=== PATIENT | male | born 1935 | race Two or more races ===

== ENCOUNTER 2022-01-11 18:50 | Inpatient (IN) | payer MEDICARE, MEDICAID ==
[~2022-01-11] VITALS: Ht 162.6 cm; Wt 69.7 kg
[2022-01-11] MEDS: DEXTROSE 10% 1,000 ML IV SCH (19:30)
[2022-01-11] MEDS ORDERED: LABETALOL HCL 5 MG/ML 4ML SYRINGE IV ONE (20:15)
[2022-01-11 20:41] LABS: Basophils # (auto) 0 10 ^3/uL (0-0.2); Basophils % (auto) 0.2 % (0.0-2.0); Eosinophils # (auto) 0 10 ^3/uL (0-0.8); Eosinophils % (auto) 0.5 % (0.0-7.0); Hematocrit 36.5 % (41.0-53.0); Hemoglobin 12.6 g/dL (13.5-17.5); Lymphocytes # (auto) 0.5 10 ^3/uL (0.4-5.4); Lymphocytes % (auto) 5.1 % (10.0-50.0); Mean Corpuscular Hemoglobin 32.6 pg (28.0-32.0); Mean Corpuscular Hgb Conc. 34.6 g/dL (32.0-36.0); Mean Corpuscular Volume 94.3 fL (80.0-100.0); Monocytes # (auto) 0.6 10 ^3/uL (0-1.3); Monocytes % (auto) 6.6 % (0.0-12.0); Neutrophils % (auto) 87.6 % (37.0-80.0); Nucleated Red Blood Cells % 0.6 %; Red Blood Cells 3.88 10^6/uL (4.5-5.90); Red Cell Distribution Width 13.5 % (11.8-14.3); White Blood Cell 9.1 10^3/uL (4.4-10.8)
[2022-01-11 21:00] LABS: Alanine Aminotransferase 19 U/L (16-61); Albumin 3.4 g/dL (3.4-5.0); Anion Gap 12 (5-15); Aspartate Aminotransferase 24 U/L (15-37); BUN/Creatinine Ratio 11.5; Blood Urea Nitrogen 18 mg/dL (7-18); Calcium 8.9 mg/dL (8.5-10.1); Carbon Dioxide 20 mmol/L (21-32); Chloride 96 mmol/L (98-107); GFR African American 54 mL/min; GFR Non-African American 45 mL/min; Glucose 82 mg/dL (74-106); Potassium 4.5 mmol/L (3.5-5.1); Sodium 128 mmol/L (136-145)
[2022-01-11 21:03] LABS: Alkaline Phosphatase 102 U/L (45-117); Bilirubin, Total 0.3 mg/dL (0.2-1.0); Total Protein 8.5 g/dL (6.4-8.2)
[2022-01-11 21:57] LABS: Urine WBC None Seen /hpf (0 - 3)
[2022-01-11 22:07] LABS: Urine Bacteria FEW /hpf (None Seen); Urine Blood TRACE /uL (Negative); Urine Specific Gravity 1.005 (1.001-1.035)
[2022-01-12] MEDS ORDERED: NIFEdipine ER 30 MG TAB PO ONE (02:45)
[2022-01-12] MEDS ORDERED: DEXTROSE (50%) 50ML SYRG IV PRN (03:00)
[2022-01-12] MEDS ORDERED: ASPirin-EC 81 mg tab PO ONE (03:00)
[2022-01-12] MEDS ORDERED: ONDANSETRON HCL 4 MG/2 ML VIAL IV PRN (03:00)
[2022-01-12] MEDS ORDERED: SODIUM CHLORIDE 0.9% 1,000 ML IV SCH (03:00)
[2022-01-12] MEDS: LABETALOL HCL 5 MG/ML 4ML SYRINGE IV SCH ×4 (05:10→18:00)
[2022-01-12] MEDS: InsuLIN REG 1unit/0.01ml Soln (100units/ml) SC SCH ×5 (05:11→21:38)
[2022-01-12] MEDS: SODIUM CHLOR 0.9% PF (SALINE LOCK) 10ML VIAL/SYR IV SCH ×4 (05:11→21:37)
[2022-01-12] MEDS: DEXTROSE 10% 1,000 ML IV SCH ×3 (05:30→22:55)
[2022-01-12] MEDS: ACCU-CHEK COMFORT CURVE STRIP VI SCH ×4 (06:33→21:04)
[2022-01-12 12:50] LABS: Potassium 4.3 mmol/L (3.5-5.1)
[2022-01-12 13:00] VITALS: BP 146/69
[2022-01-12 13:02] LABS: BUN/Creatinine Ratio 14.6; Calcium 8.5 mg/dL (8.5-10.1)
[2022-01-12] MEDS ORDERED: NITROGLYCERIN 0.4 MG SL TAB SL PRN (13:15)
[2022-01-12] MEDS ORDERED: MORPHINE SULFATE INJECTION 2 MG/ML SYRG IV PRN (13:15)
[2022-01-12] MEDS ORDERED: LORazepam 2MG/ML-1ML VIAL IV ONE (13:15)
[2022-01-12] MEDS ORDERED: amLODIPine BESYLATE 5 MG TAB PO ONE (13:45)
[2022-01-12] MEDS ORDERED: ASPI-498 PO (16:31)
[2022-01-12] MEDS ORDERED: CARV6.2551 PO (16:33)
[2022-01-12 17:00] VITALS: BP 121/61
[2022-01-12] MEDS ORDERED: GLIP10TA9 PO (18:26)
[2022-01-12] MEDS ORDERED: TAMS0.4C36 PO (18:26)
[2022-01-12] MEDS ORDERED: LEVO88TA4 PO (18:26)
[2022-01-12] MEDS ORDERED: METF-370 PO (18:26)
[2022-01-12 22:00] VITALS: BP 101/55
[2022-01-13] MEDS: LABETALOL HCL 5 MG/ML 4ML SYRINGE IV SCH ×4 (01:42→13:48)
[2022-01-13 05:00] VITALS: BP 121/56
[2022-01-13] MEDS: SODIUM CHLOR 0.9% PF (SALINE LOCK) 10ML VIAL/SYR IV SCH ×3 (05:26→22:50)
[2022-01-13] MEDS: ACCU-CHEK COMFORT CURVE STRIP VI SCH ×4 (06:15→22:53)
[2022-01-13] MEDS: InsuLIN REG 1unit/0.01ml Soln (100units/ml) SC SCH ×4 (06:20→22:54)
[2022-01-13 09:35] VITALS: BP 138/69
[2022-01-13] MEDS: amLODIPine BESYLATE 5 MG TAB PO SCH (10:00)
[2022-01-13 13:00] VITALS: BP 135/64
[2022-01-13] MEDS ORDERED: ASPirin 81 mg TAB PO ONE (13:15)
[2022-01-13] MEDS ORDERED: ACETAMINOPHEN 325 MG TAB PO PRN (16:00)
[2022-01-13] MEDS ORDERED: ENOXAPARIN SOD 40 MG/0.4 ML SYRINGE SC ONE (16:00)
[2022-01-13 16:27] LABS: Calcium 8.5 mg/dL (8.5-10.1); Potassium 4.3 mmol/L (3.5-5.1)
[2022-01-13 16:29] LABS: BUN/Creatinine Ratio 14.3
[2022-01-13] MEDS: TAMSULOSIN HYDROCHLORIDE 0.4 MG CAP PO SCH (17:02)
[2022-01-13 18:10] VITALS: BP_SYST 132; BP_SYST 143; BP_DIAS 107; BP_DIAS 80
[2022-01-13 20:43] LABS: Cholesterol 170 mg/dL (< 200); Triglycerides 100 mg/dL (< 150)
[2022-01-13 20:46] LABS: HDL Cholesterol 84 mg/dL (40-59); LDL Cholesterol 68 mg/dL (< 100)
[2022-01-13] MEDS: ATORVASTATIN 20 MG TAB PO SCH (22:52)
[2022-01-13] MEDS: CARVEDILOL 3.125 MG TAB PO SCH (22:52)
[2022-01-14] MEDS: hydrALAZINE HCL 25 MG TAB PO PRN ×2 (00:03→05:45)
[2022-01-14] MEDS: SODIUM CHLOR 0.9% PF (SALINE LOCK) 10ML VIAL/SYR IV SCH ×3 (05:23→21:55)
[2022-01-14] MEDS: ACCU-CHEK COMFORT CURVE STRIP VI SCH ×4 (06:04→21:55)
[2022-01-14] MEDS: InsuLIN REG 1unit/0.01ml Soln (100units/ml) SC SCH ×4 (06:05→22:09)
[2022-01-14] MEDS: LEVOTHYROXINE SODIUM 25 MCG TAB PO SCH (06:05)
[2022-01-14 07:39] LABS: Cholesterol 199 mg/dL (< 200); Triglycerides 150 mg/dL (< 150)
[2022-01-14 07:41] LABS: HDL Cholesterol 99 mg/dL (40-59); LDL Cholesterol 79 mg/dL (< 100)
[2022-01-14 09:00] VITALS: BP 141/75
[2022-01-14] MEDS: ASPirin 81 mg TAB PO SCH (09:36)
[2022-01-14] MEDS: CARVEDILOL 3.125 MG TAB PO SCH ×2 (09:37→22:00)
[2022-01-14] MEDS: amLODIPine BESYLATE 5 MG TAB PO SCH (09:38)
[2022-01-14] MEDS: ENOXAPARIN SOD 40 MG/0.4 ML SYRINGE SC SCH (09:39)
[2022-01-14] MEDS: SODIUM CHLORIDE 0.9% 1,000 ML IV SCH ×2 (11:38→23:35)
[2022-01-14 12:49] VITALS: BP 138/61
[2022-01-14] MEDS ORDERED: NICOTINE 21MG/24 HR TOPICAL PATCH TD ONE (14:30)
[2022-01-14] MEDS ORDERED: chlordiazePOXIDE HCL 5 MG CAP PO PRN (14:30)
[2022-01-14] MEDS ORDERED: GLYCOPYRROLATE 0.2 MG/ML 1ML VIAL ONE (16:05)
[2022-01-14] MEDS ORDERED: LIDOCAINE 2%HCL (LOCAL ANESTH.) INJ 10ml MDV ONE (16:05)
[2022-01-14] MEDS ORDERED: PHENYLEPHRINE HCL 10 MG/ML VL ONE (16:05)
[2022-01-14] MEDS ORDERED: EPINEPHrine HCL 1 MG/10 ML SYRG ONE (16:32)
[2022-01-14] MEDS ORDERED: DOPamine 1600MCG/ML D5W 0 ML IV ONE (16:32)
[2022-01-14] MEDS ORDERED: ATROPINE SULF 1 MG/10ml SYR ONE (16:32)
[2022-01-14] MEDS ORDERED: ANGIOMAX 250 MG VIAL IV ONE (16:39)
[2022-01-14] MEDS ORDERED: SODIUM CHL 0.9% 50 ML ONE (16:39)
[2022-01-14 16:41] LABS: INR 1.02 (0.9-1.15)
[2022-01-14] MEDS ORDERED: MIDODRINE HCL 10 MG TAB PO PRN ×2 (17:15→17:30)
[2022-01-14] MEDS: CLOPIDOGREL 300 MG TAB PO ONE ×2 (17:18→18:25)
[2022-01-14] MEDS: TAMSULOSIN HYDROCHLORIDE 0.4 MG CAP PO SCH (17:56)
[2022-01-14] MEDS ORDERED: SODIUM CHLORIDE 0.9% 500 ML IV ONE (18:00)
[2022-01-14] MEDS ORDERED: DOPamine 1600MCG/ML D5W 250 ML IV SCH (18:00)
[2022-01-14] MEDS ORDERED: CLOPIDOGREL 300 MG TAB ONE (18:19)
[2022-01-14] MEDS ORDERED: DOPamine 1600MCG/ML D5W 250 ML IV ONE (18:26)
[2022-01-14] MEDS: ATORVASTATIN 20 MG TAB PO SCH (22:00)
[2022-01-15] MEDS: SODIUM CHLOR 0.9% PF (SALINE LOCK) 10ML VIAL/SYR IV SCH ×3 (06:03→22:00)
[2022-01-15] MEDS: ACCU-CHEK COMFORT CURVE STRIP VI SCH ×4 (06:03→22:00)
[2022-01-15] MEDS: LEVOTHYROXINE SODIUM 25 MCG TAB PO SCH (06:03)
[2022-01-15 06:08] VITALS: BP 145/67
[2022-01-15] MEDS: InsuLIN REG 1unit/0.01ml Soln (100units/ml) SC SCH ×4 (06:17→22:00)
[2022-01-15 06:26] LABS: BUN/Creatinine Ratio 15.3; Calcium 8.6 mg/dL (8.5-10.1); Potassium 4.4 mmol/L (3.5-5.1)
[2022-01-15 09:00] VITALS: BP 147/68
[2022-01-15] MEDS: NICOTINE 21MG/24 HR TOPICAL PATCH TD SCH (10:00)
[2022-01-15] MEDS: ASPirin 81 mg TAB PO SCH (10:10)
[2022-01-15] MEDS: CLOPIDOGREL BISULFATE 75 MG TAB PO SCH (10:10)
[2022-01-15] MEDS: amLODIPine BESYLATE 5 MG TAB PO SCH (10:10)
[2022-01-15] MEDS: CARVEDILOL 3.125 MG TAB PO SCH ×2 (10:11→22:11)
[2022-01-15] MEDS: ENOXAPARIN SOD 40 MG/0.4 ML SYRINGE SC SCH (10:23)
[2022-01-15 13:00] VITALS: BP 100/47
[2022-01-15] MEDS: SODIUM CHLORIDE 0.9% 1,000 ML IV SCH ×2 (13:18→23:58)
[2022-01-15 17:00] VITALS: BP 100/48
[2022-01-15] MEDS: TAMSULOSIN HYDROCHLORIDE 0.4 MG CAP PO SCH (17:41)
[2022-01-15 22:00] VITALS: BP 122/60
[2022-01-15] MEDS: ATORVASTATIN 20 MG TAB PO SCH (22:12)
[2022-01-16 05:00] VITALS: BP 144/64
[2022-01-16 05:55] LABS: Basophils # (auto) 0 10 ^3/uL (0-0.2); Basophils % (auto) 0.3 % (0.0-2.0); Eosinophils # (auto) 0.1 10 ^3/uL (0-0.8); Eosinophils % (auto) 1.1 % (0.0-7.0); Hematocrit 28.8 % (41.0-53.0); Hemoglobin 10.1 g/dL (13.5-17.5); Lymphocytes # (auto) 1.3 10 ^3/uL (0.4-5.4); Lymphocytes % (auto) 17.8 % (10.0-50.0); Mean Corpuscular Hemoglobin 33.3 pg (28.0-32.0); Mean Corpuscular Hgb Conc. 35.3 g/dL (32.0-36.0); Mean Corpuscular Volume 94.2 fL (80.0-100.0); Monocytes # (auto) 0.8 10 ^3/uL (0-1.3); Monocytes % (auto) 11.7 % (0.0-12.0); Neutrophils # (auto) 4.9 10 ^3/uL (1.6-8.6); Neutrophils % (auto) 69.1 % (37.0-80.0); Red Blood Cells 3.05 10^6/uL (4.5-5.90); Red Cell Distribution Width 13.2 % (11.8-14.3); White Blood Cell 7.1 10^3/uL (4.4-10.8)
[2022-01-16] MEDS: SODIUM CHLOR 0.9% PF (SALINE LOCK) 10ML VIAL/SYR IV SCH ×3 (06:00→21:33)
[2022-01-16 06:09] LABS: Calcium 8.5 mg/dL (8.5-10.1); Potassium 4.2 mmol/L (3.5-5.1)
[2022-01-16] MEDS: LEVOTHYROXINE SODIUM 25 MCG TAB PO SCH (06:46)
[2022-01-16] MEDS: ACCU-CHEK COMFORT CURVE STRIP VI SCH ×4 (06:49→21:33)
[2022-01-16] MEDS: InsuLIN REG 1unit/0.01ml Soln (100units/ml) SC SCH ×4 (06:49→21:32)
[2022-01-16 07:50] VITALS: BP 124/53
[2022-01-16 08:59] VITALS: BP 124/53
[2022-01-16] MEDS: THIAMINE HCL 100 MG TAB PO SCH (09:49)
[2022-01-16] MEDS: CLOPIDOGREL BISULFATE 75 MG TAB PO SCH (09:49)
[2022-01-16] MEDS: ENOXAPARIN SOD 30 MG/0.3 ML SYRINGE SC SCH ×2 (09:49→10:00)
[2022-01-16] MEDS: ASPirin 81 mg TAB PO SCH (09:49)
[2022-01-16] MEDS: FOLIC ACID 1 MG TAB PO SCH (09:50)
[2022-01-16] MEDS: NICOTINE 21MG/24 HR TOPICAL PATCH TD SCH (10:00)
[2022-01-16] MEDS: CARVEDILOL 3.125 MG TAB PO SCH ×2 (10:00→21:41)
[2022-01-16] MEDS: amLODIPine BESYLATE 5 MG TAB PO SCH (10:00)
[2022-01-16 13:00] VITALS: BP 145/63
[2022-01-16] MEDS ORDERED: CLOP75TA70 PO (13:48)
[2022-01-16] MEDS ORDERED: TAM04C PO (13:48)
[2022-01-16] MEDS ORDERED: LEV25T PO (13:48)
[2022-01-16] MEDS ORDERED: ASPI1CHW15 PO (13:48)
[2022-01-16] MEDS ORDERED: CAR3125T PO (13:48)
[2022-01-16] MEDS ORDERED: ATOR20TA50 PO (13:48)
[2022-01-16] MEDS: SODIUM CHLORIDE 0.9% 1,000 ML IV SCH (15:35)
[2022-01-16 17:00] VITALS: BP 136/67
[2022-01-16] MEDS: TAMSULOSIN HYDROCHLORIDE 0.4 MG CAP PO SCH (18:04)
[2022-01-16] MEDS: ATORVASTATIN 20 MG TAB PO SCH (21:41)
[2022-01-16 22:00] VITALS: BP 161/69
[2022-01-17 05:00] VITALS: BP 146/62
[2022-01-17] MEDS: SODIUM CHLOR 0.9% PF (SALINE LOCK) 10ML VIAL/SYR IV SCH ×2 (05:25→14:00)
[2022-01-17] MEDS: SODIUM CHLORIDE 0.9% 1,000 ML IV SCH (05:42)
[2022-01-17 06:14] LABS: Potassium 4.2 mmol/L (3.5-5.1)
[2022-01-17 06:20] LABS: BUN/Creatinine Ratio 17.9; Calcium 8.1 mg/dL (8.5-10.1)
[2022-01-17] MEDS: InsuLIN REG 1unit/0.01ml Soln (100units/ml) SC SCH ×2 (06:39→11:30)
[2022-01-17] MEDS: LEVOTHYROXINE SODIUM 25 MCG TAB PO SCH (06:39)
[2022-01-17] MEDS: ACCU-CHEK COMFORT CURVE STRIP VI SCH ×2 (06:40→11:55)
[2022-01-17 08:30] VITALS: BP 144/64
[2022-01-17] MEDS: ENOXAPARIN SOD 30 MG/0.3 ML SYRINGE SC SCH (10:00)
[2022-01-17] MEDS: NICOTINE 21MG/24 HR TOPICAL PATCH TD SCH (10:00)
[2022-01-17] MEDS: ASPirin 81 mg TAB PO SCH (10:03)
[2022-01-17] MEDS: THIAMINE HCL 100 MG TAB PO SCH (10:03)
[2022-01-17] MEDS: amLODIPine BESYLATE 5 MG TAB PO SCH (10:03)
[2022-01-17] MEDS: FOLIC ACID 1 MG TAB PO SCH (10:03)
[2022-01-17] MEDS: CLOPIDOGREL BISULFATE 75 MG TAB PO SCH (10:03)
[2022-01-17] MEDS: CARVEDILOL 3.125 MG TAB PO SCH (10:04)
[2022-01-17 12:30] VITALS: BP 137/56
[2022-01-17 13:03] VITALS: BP 152/61
[2022-01-18 10:32] LABS: Folate (Folic Acid) > 24.00 ng/mL (5.38-24)
== END 2022-01-17 15:00 | disposition home or self-care (01) | DRG 34 ==
LOC: ER 18:50 → EDBD 18:50 → OVERFLOW 01-12 02:47 → WEST WING 01-12 09:06 → TELE-WESTW 01-12 13:39
PROVIDERS: ADMIT Internal Medicine; ATTEND Internal Medicine
PROC: 037K34Z Dilation of Right Internal Carotid Artery with Drug-eluting Intraluminal Device, Percutaneous Approach (ICD-10-PCS; principal; 2022-01-14)
PROC: B318YZZ Fluoroscopy of Bilateral Internal Carotid Arteries using Other Contrast (ICD-10-PCS; 2022-01-14)
DX: I65.23 Occlusion and stenosis of bilateral carotid arteries (principal); I63.9 Cerebral infarction, unspecified; G93.41 Metabolic encephalopathy; N17.9 Acute kidney failure, unspecified; E87.1 Hypo-osmolality and hyponatremia; G81.94 Hemiplegia, unspecified affecting left nondominant side; E11.649 Type 2 diabetes mellitus with hypoglycemia without coma; N18.30 Chronic kidney disease, stage 3 unspecified; D63.8 Anemia in other chronic diseases classified elsewhere; E11.22 Type 2 diabetes mellitus with diabetic chronic kidney disease; E78.5 Hyperlipidemia, unspecified; I16.0 Hypertensive urgency; I95.9 Hypotension, unspecified; E03.9 Hypothyroidism, unspecified; E11.21 Type 2 diabetes mellitus with diabetic nephropathy; F17.210 Nicotine dependence, cigarettes, uncomplicated; H54.62 Unqualified visual loss, left eye, normal vision right eye; I12.9 Hypertensive chronic kidney disease with stage 1 through stage 4 chronic kidney disease, or unspecified chronic kidney disease; I25.10 Atherosclerotic heart disease of native coronary artery without angina pectoris; Z20.822 Contact with and (suspected) exposure to COVID-19; N18.9 Chronic kidney disease, unspecified; Z79.82 Long term (current) use of aspirin; Z79.899 Other long term (current) drug therapy; Z82.49 Family history of ischemic heart disease and other diseases of the circulatory system; Z95.1 Presence of aortocoronary bypass graft; Z95.820 Peripheral vascular angioplasty status with implants and grafts; Z86.73 Personal history of transient ischemic attack (TIA), and cerebral infarction without residual deficits; E16.1 Other hypoglycemia
CPT/HCPCS: 36415; 36600; 70450; 70551; 71045; 80048; 80053; 80061; 80320; 81001; 82607; 82746; 82805; 82962; 83036; 83605; 84443; 84484; 85025; 85379; 85610; 93005; 93306; 93886; 93970; 96361; 96374; 97163; 99152; 99153; G0378; J1815; J2001; J3490

== ENCOUNTER 2023-03-24 15:06 | Inpatient (IN) | payer OTHER, MEDICAID ==
[~2023-03-24] VITALS: Ht 160 cm; Wt 62.5 kg
[~2023-03-24 15:06] MED LIST: ASPI-498 PO; ASPI-736 PO; ATOR20TA50 PO; CAR3125T PO; CARV6.2551 PO; CLOP75TA70 PO; LEV25T PO; LEVO88TA4 PO; TAMS-35 PO; TAMS0.4C36 PO
[2023-03-24] MEDS ORDERED: IPRATROPIUM BROM 0.5 MG/2.5ML INH SOL NEB ONE (15:30)
[2023-03-24] MEDS ORDERED: ALBUTEROL SULF 2.5 MG/0.5ML(0.5%) NEB SOLN NEB ONE (15:30)
[2023-03-24] MEDS ORDERED: DexAMETHasone SOD PHOS 10MG/1ML VIAL INJ IV ONE (15:30)
[2023-03-24 16:12] LABS: Basophils # (auto) 0 10 ^3/uL (0-0.2); Basophils % (auto) 0.1 % (0.0-2.0); Eosinophils # (auto) 0 10 ^3/uL (0-0.8); Eosinophils % (auto) 0.6 % (0.0-7.0); Hematocrit 35.5 % (41.0-53.0); Hemoglobin 11.3 g/dL (13.5-17.5); Lymphocytes # (auto) 0.6 10 ^3/uL (0.4-5.4); Lymphocytes % (auto) 13.5 % (10.0-50.0); Mean Corpuscular Hemoglobin 27.9 pg (28.0-32.0); Mean Corpuscular Hgb Conc. 31.9 g/dL (32.0-36.0); Mean Corpuscular Volume 87.5 fL (80.0-100.0); Monocytes # (auto) 0.3 10 ^3/uL (0-1.3); Monocytes % (auto) 7.1 % (0.0-12.0); Neutrophils # (auto) 3.5 10 ^3/uL (1.6-8.6); Neutrophils % (auto) 78.7 % (37.0-80.0); Nucleated Red Blood Cells % 0.1 %; Red Blood Cells 4.06 10^6/uL (4.5-5.90); Red Cell Distribution Width 16.9 % (11.8-14.3); White Blood Cell 4.4 10^3/uL (4.4-10.8)
[2023-03-24 16:22] LABS: Albumin 2.9 g/dL (3.4-5.0)
[2023-03-24 16:28] LABS: BUN/Creatinine Ratio 17.8 (10.0-20.0); Bilirubin, Total 0.7 mg/dL (0.2-1.0); Magnesium 2.1 mg/dL (1.6-2.6); Total Protein 6.1 g/dL (6.4-8.2)
[2023-03-24 16:31] LABS: Potassium 5.6 mmol/L (3.5-5.1)
[2023-03-24] MEDS ORDERED: FUROSEMIDE 40 MG/4 ML VIAL IV ONE (17:00)
[2023-03-24 19:04] LABS: Urine Bacteria NONE SEEN /hpf (None Seen); Urine Blood Negative /uL (Negative); Urine Specific Gravity 1.016 (1.001-1.035); Urine WBC <1 /hpf (0 - 3)
[2023-03-24] MEDS ORDERED: ONDANSETRON HCL 4 MG/2 ML VIAL IV PRN (19:15)
[2023-03-24] MEDS ORDERED: DOCUSATE SOD 100 MG CAP PO PRN (19:15)
[2023-03-24] MEDS ORDERED: DEXTROSE (50%) 50ML SYRG IV PRN (19:15)
[2023-03-24] MEDS ORDERED: SODIUM ZIRCONIUM CYCL 10 GM PAK PO ONE (19:45)
[2023-03-24 20:40] LABS: Creatinine, Urine 86 mg/dL (30.0-125.0); Sodium Urine 81 mmol/L (40-220)
[2023-03-24 21:04] LABS: INR 1.24 (0.9-1.15)
[2023-03-24 21:07] LABS: Albumin 3.3 g/dL (3.4-5.0); Bilirubin, Direct 0.4 mg/dL (0-0.2)
[2023-03-24 21:10] LABS: Bilirubin, Total 0.9 mg/dL (0.2-1.0); Total Protein 7.2 g/dL (6.4-8.2)
[2023-03-24] MEDS: CARVEDILOL 3.125 MG TAB PO SCH (23:32)
[2023-03-24] MEDS: metroNIDAZOLE 500MG/100ML 100 ML IV SCH (23:32)
[2023-03-24] MEDS: ATORVASTATIN 20 MG TAB PO SCH (23:33)
[2023-03-24] MEDS: TAMSULOSIN HYDROCHLORIDE 0.4 MG CAP PO SCH (23:33)
[2023-03-25] MEDS: ACCU-CHEK COMFORT CURVE STRIP VI SCH ×5 (00:17→22:10)
[2023-03-25] MEDS: InsuLIN REG 1unit/0.01ml Soln (100units/ml) SC SCH ×5 (00:26→22:00)
[2023-03-25 04:41] LABS: Basophils # (auto) 0 10 ^3/uL (0-0.2); Basophils % (auto) 0.9 % (0.0-2.0); Eosinophils # (auto) 0 10 ^3/uL (0-0.8); Hematocrit 37.2 % (41.0-53.0); Hemoglobin 11.8 g/dL (13.5-17.5); Lymphocytes # (auto) 0.3 10 ^3/uL (0.4-5.4); Lymphocytes % (auto) 11.7 % (10.0-50.0); Mean Corpuscular Hemoglobin 28.2 pg (28.0-32.0); Mean Corpuscular Hgb Conc. 31.6 g/dL (32.0-36.0); Mean Corpuscular Volume 89.1 fL (80.0-100.0); Monocytes # (auto) 0.1 10 ^3/uL (0-1.3); Monocytes % (auto) 2.1 % (0.0-12.0); Neutrophils # (auto) 2.1 10 ^3/uL (1.6-8.6); Neutrophils % (auto) 85.3 % (37.0-80.0); Nucleated Red Blood Cells % 0.1 %; Red Blood Cells 4.18 10^6/uL (4.5-5.90); Red Cell Distribution Width 17.5 % (11.8-14.3); White Blood Cell 2.5 10^3/uL (4.4-10.8)
[2023-03-25 04:45] LABS: Albumin 2.7 g/dL (3.4-5.0); Calcium 8.1 mg/dL (8.5-10.1)
[2023-03-25 04:47] LABS: Bilirubin, Total 0.7 mg/dL (0.2-1.0); Total Protein 6.4 g/dL (6.4-8.2)
[2023-03-25 04:51] LABS: Potassium 5.6 mmol/L (3.5-5.1)
[2023-03-25] MEDS ORDERED: SODIUM ZIRCONIUM CYCL 10 GM PAK PO ONE (05:15)
[2023-03-25] MEDS ORDERED: FUROSEMIDE 20 MG/2 ML VIAL IV ONE (05:15)
[2023-03-25] MEDS: metroNIDAZOLE 500MG/100ML 100 ML IV SCH ×3 (06:16→22:05)
[2023-03-25] MEDS: LEVOTHYROXINE SODIUM 25 MCG TAB PO SCH (06:29)
[2023-03-25 06:46] VITALS: BP 165/93
[2023-03-25 09:00] VITALS: BP 121/96
[2023-03-25] MEDS ORDERED: cefTRIAXone 1GM/50ML D5W 50 ML IV SCH (09:00)
[2023-03-25] MEDS: cefTRIAXone 1GM/50ML D5W 50 ML IV SCH (09:22)
[2023-03-25] MEDS ORDERED: ASPirin-EC 81 mg tab PO SCH (10:00)
[2023-03-25] MEDS ORDERED: CLOPIDOGREL BISULFATE 75 MG TAB PO SCH (10:00)
[2023-03-25] MEDS: PANTOPRAZOLE 40 MG/10 ML VIAL INJ IV SCH (10:10)
[2023-03-25] MEDS: TAMSULOSIN HYDROCHLORIDE 0.4 MG CAP PO SCH ×2 (10:11→22:05)
[2023-03-25] MEDS: FUROSEMIDE 20 MG/2 ML VIAL IV SCH (10:11)
[2023-03-25] MEDS: CARVEDILOL 3.125 MG TAB PO SCH ×2 (10:11→22:06)
[2023-03-25 13:00] VITALS: BP 157/86
[2023-03-25 17:00] VITALS: BP 124/65
[2023-03-25] MEDS: ATORVASTATIN 20 MG TAB PO SCH (22:06)
[2023-03-26 01:27] VITALS: BP_SYST 116; BP_SYST 123; BP_DIAS 70; BP_DIAS 78
[2023-03-26 05:00] VITALS: BP 120/64
[2023-03-26 06:21] LABS: BUN/Creatinine Ratio 20.8 (10.0-20.0); Calcium 8.2 mg/dL (8.5-10.1); Potassium 4.9 mmol/L (3.5-5.1)
[2023-03-26] MEDS: LEVOTHYROXINE SODIUM 25 MCG TAB PO SCH (06:29)
[2023-03-26] MEDS: metroNIDAZOLE 500MG/100ML 100 ML IV SCH ×3 (06:29→21:43)
[2023-03-26] MEDS: ACCU-CHEK COMFORT CURVE STRIP VI SCH ×4 (06:30→21:46)
[2023-03-26] MEDS: InsuLIN REG 1unit/0.01ml Soln (100units/ml) SC SCH ×4 (06:32→21:46)
[2023-03-26 06:50] LABS: Basophils # (auto) 0 10 ^3/uL (0-0.2); Basophils % (auto) 0.2 % (0.0-2.0); Eosinophils # (auto) 0 10 ^3/uL (0-0.8); Eosinophils % (auto) 0.2 % (0.0-7.0); Hematocrit 36.9 % (41.0-53.0); Hemoglobin 11.7 g/dL (13.5-17.5); Lymphocytes # (auto) 0.7 10 ^3/uL (0.4-5.4); Mean Corpuscular Hgb Conc. 31.8 g/dL (32.0-36.0); Mean Corpuscular Volume 88.2 fL (80.0-100.0); Monocytes # (auto) 0.3 10 ^3/uL (0-1.3); Neutrophils # (auto) 4.3 10 ^3/uL (1.6-8.6); Neutrophils % (auto) 80.6 % (37.0-80.0); Nucleated Red Blood Cells % 0.2 %; Red Blood Cells 4.19 10^6/uL (4.5-5.90); Red Cell Distribution Width 17.1 % (11.8-14.3); White Blood Cell 5.3 10^3/uL (4.4-10.8)
[2023-03-26] MEDS: PANTOPRAZOLE 40 MG/10 ML VIAL INJ IV SCH (08:46)
[2023-03-26] MEDS: TAMSULOSIN HYDROCHLORIDE 0.4 MG CAP PO SCH ×2 (08:46→21:44)
[2023-03-26] MEDS: cefTRIAXone 1GM/50ML D5W 50 ML IV SCH (08:47)
[2023-03-26] MEDS: FUROSEMIDE 20 MG/2 ML VIAL IV SCH (08:47)
[2023-03-26] MEDS: CARVEDILOL 3.125 MG TAB PO SCH ×2 (08:48→22:38)
[2023-03-26 09:00] VITALS: BP 130/52
[2023-03-26] MEDS ORDERED: ENOXAPARIN SOD 40 MG/0.4 ML SYRINGE SC ONE (11:00)
[2023-03-26 13:00] VITALS: BP 118/73
[2023-03-26 13:23] LABS: Urine Bacteria NONE SEEN /hpf (None Seen); Urine Blood Negative /uL (Negative); Urine Specific Gravity 1.007 (1.001-1.035); Urine WBC <1 /hpf (0 - 3)
[2023-03-26 17:00] VITALS: BP 97/53
[2023-03-26] MEDS: FUROSEMIDE 40 MG/4 ML VIAL IV SCH (17:24)
[2023-03-26] MEDS: ATORVASTATIN 20 MG TAB PO SCH (21:44)
[2023-03-26 22:00] VITALS: BP 127/58
[2023-03-27 05:00] VITALS: BP 123/72
[2023-03-27] MEDS: metroNIDAZOLE 500MG/100ML 100 ML IV SCH ×3 (05:25→21:44)
[2023-03-27] MEDS: FUROSEMIDE 40 MG/4 ML VIAL IV SCH ×2 (05:25→18:33)
[2023-03-27] MEDS: LEVOTHYROXINE SODIUM 25 MCG TAB PO SCH (05:26)
[2023-03-27] MEDS: ACCU-CHEK COMFORT CURVE STRIP VI SCH ×4 (05:30→21:43)
[2023-03-27] MEDS: InsuLIN REG 1unit/0.01ml Soln (100units/ml) SC SCH ×4 (05:31→21:44)
[2023-03-27 06:35] LABS: Basophils # (auto) 0 10 ^3/uL (0-0.2); Basophils % (auto) 0.2 % (0.0-2.0); Eosinophils # (auto) 0 10 ^3/uL (0-0.8); Eosinophils % (auto) 0.3 % (0.0-7.0); Hematocrit 36.3 % (41.0-53.0); Hemoglobin 11.6 g/dL (13.5-17.5); Lymphocytes # (auto) 0.8 10 ^3/uL (0.4-5.4); Lymphocytes % (auto) 16.2 % (10.0-50.0); Mean Corpuscular Hemoglobin 28.1 pg (28.0-32.0); Mean Corpuscular Volume 87.9 fL (80.0-100.0); Monocytes # (auto) 0.4 10 ^3/uL (0-1.3); Monocytes % (auto) 7.9 % (0.0-12.0); Neutrophils # (auto) 3.8 10 ^3/uL (1.6-8.6); Neutrophils % (auto) 75.4 % (37.0-80.0); Nucleated Red Blood Cells % 0.2 %; Red Blood Cells 4.13 10^6/uL (4.5-5.90); Red Cell Distribution Width 17.6 % (11.8-14.3)
[2023-03-27 06:45] LABS: BUN/Creatinine Ratio 21.5 (10.0-20.0); Phosphorus 2.7 mg/dL (2.5-4.90); Uric Acid 7.8 mg/dL (3.5-7.2)
[2023-03-27 08:49] VITALS: BP 132/76
[2023-03-27] MEDS: cefTRIAXone 1GM/50ML D5W 50 ML IV SCH (09:56)
[2023-03-27] MEDS: PANTOPRAZOLE 40 MG/10 ML VIAL INJ IV SCH (09:56)
[2023-03-27] MEDS: CARVEDILOL 3.125 MG TAB PO SCH ×2 (09:57→22:09)
[2023-03-27] MEDS: TAMSULOSIN HYDROCHLORIDE 0.4 MG CAP PO SCH ×2 (09:57→21:43)
[2023-03-27] MEDS: ENOXAPARIN SOD 30 MG/0.3 ML SYRINGE SC SCH (09:57)
[2023-03-27 12:53] VITALS: BP 129/71
[2023-03-27 17:00] VITALS: BP 113/62
[2023-03-27] MEDS: ATORVASTATIN 20 MG TAB PO SCH (21:43)
[2023-03-27 22:00] VITALS: BP 128/68
[2023-03-28 05:00] VITALS: BP 136/69
[2023-03-28] MEDS: ACCU-CHEK COMFORT CURVE STRIP VI SCH ×4 (06:04→22:05)
[2023-03-28] MEDS: LEVOTHYROXINE SODIUM 25 MCG TAB PO SCH (06:04)
[2023-03-28] MEDS: InsuLIN REG 1unit/0.01ml Soln (100units/ml) SC SCH ×4 (06:04→22:00)
[2023-03-28] MEDS: FUROSEMIDE 40 MG/4 ML VIAL IV SCH ×2 (06:06→18:17)
[2023-03-28] MEDS: metroNIDAZOLE 500MG/100ML 100 ML IV SCH (06:08)
[2023-03-28 07:28] LABS: Basophils # (auto) 0 10 ^3/uL (0-0.2); Basophils % (auto) 0.4 % (0.0-2.0); Eosinophils # (auto) 0 10 ^3/uL (0-0.8); Eosinophils % (auto) 0.4 % (0.0-7.0); Hematocrit 34.4 % (41.0-53.0); Hemoglobin 11.1 g/dL (13.5-17.5); Lymphocytes % (auto) 20.1 % (10.0-50.0); Mean Corpuscular Hemoglobin 27.8 pg (28.0-32.0); Mean Corpuscular Hgb Conc. 32.2 g/dL (32.0-36.0); Mean Corpuscular Volume 86.3 fL (80.0-100.0); Monocytes # (auto) 0.5 10 ^3/uL (0-1.3); Monocytes % (auto) 9.7 % (0.0-12.0); Neutrophils # (auto) 3.6 10 ^3/uL (1.6-8.6); Neutrophils % (auto) 69.4 % (37.0-80.0); Nucleated Red Blood Cells % 0.1 %; Red Blood Cells 3.98 10^6/uL (4.5-5.90); Red Cell Distribution Width 17.7 % (11.8-14.3); White Blood Cell 5.2 10^3/uL (4.4-10.8)
[2023-03-28 07:31] LABS: Potassium 4.3 mmol/L (3.5-5.1)
[2023-03-28 07:57] LABS: BUN/Creatinine Ratio 22.2 (10.0-20.0); Calcium 8.3 mg/dL (8.5-10.1)
[2023-03-28 08:50] LABS: Hepatitis B Surface Antibody Negative (Negative)
[2023-03-28 09:00] VITALS: BP 132/64
[2023-03-28 09:21] LABS: Hepatitis A Total Antibody Positive (Negative)
[2023-03-28] MEDS: cefTRIAXone 1GM/50ML D5W 50 ML IV SCH (09:44)
[2023-03-28] MEDS: TAMSULOSIN HYDROCHLORIDE 0.4 MG CAP PO SCH ×2 (09:44→22:01)
[2023-03-28] MEDS: PANTOPRAZOLE 40 MG/10 ML VIAL INJ IV SCH (09:44)
[2023-03-28] MEDS: ENOXAPARIN SOD 30 MG/0.3 ML SYRINGE SC SCH (09:49)
[2023-03-28] MEDS: CARVEDILOL 3.125 MG TAB PO SCH ×2 (09:49→22:04)
[2023-03-28 13:00] VITALS: BP 134/66
[2023-03-28 13:33] LABS: Hepatitis C Antibody Negative (Negative)
[2023-03-28 17:00] VITALS: BP 115/61
[2023-03-28 22:00] VITALS: BP 120/66
[2023-03-28] MEDS: metroNIDAZOLE 500 MG TAB PO SCH (22:01)
[2023-03-28] MEDS: ATORVASTATIN 20 MG TAB PO SCH (22:02)
[2023-03-29 05:00] VITALS: BP 130/58
[2023-03-29] MEDS: FUROSEMIDE 40 MG/4 ML VIAL IV SCH ×2 (06:17→18:19)
[2023-03-29] MEDS: metroNIDAZOLE 500 MG TAB PO SCH ×3 (06:18→22:05)
[2023-03-29] MEDS: LEVOTHYROXINE SODIUM 25 MCG TAB PO SCH (06:18)
[2023-03-29] MEDS: ACCU-CHEK COMFORT CURVE STRIP VI SCH ×4 (06:20→22:00)
[2023-03-29] MEDS: InsuLIN REG 1unit/0.01ml Soln (100units/ml) SC SCH ×4 (06:20→22:02)
[2023-03-29 06:34] LABS: Calcium 8.3 mg/dL (8.5-10.1); Potassium 4.4 mmol/L (3.5-5.1)
[2023-03-29 06:36] LABS: BUN/Creatinine Ratio 24.1 (10.0-20.0)
[2023-03-29 08:10] VITALS: BP 131/75
[2023-03-29] MEDS: cefTRIAXone 1GM/50ML D5W 50 ML IV SCH (08:42)
[2023-03-29] MEDS: TAMSULOSIN HYDROCHLORIDE 0.4 MG CAP PO SCH ×2 (10:46→22:05)
[2023-03-29] MEDS: ENOXAPARIN SOD 30 MG/0.3 ML SYRINGE SC SCH (10:49)
[2023-03-29] MEDS: CARVEDILOL 3.125 MG TAB PO SCH ×2 (10:50→22:05)
[2023-03-29 12:10] VITALS: BP 139/55
[2023-03-29 17:07] VITALS: BP 122/64
[2023-03-29 22:00] VITALS: BP_SYST 101; BP_SYST 123; BP_DIAS 52; BP_DIAS 54
[2023-03-29] MEDS: ATORVASTATIN 20 MG TAB PO SCH (22:05)
[2023-03-30 05:00] VITALS: BP 131/57
[2023-03-30] MEDS: FUROSEMIDE 40 MG/4 ML VIAL IV SCH (06:02)
[2023-03-30] MEDS: metroNIDAZOLE 500 MG TAB PO SCH ×3 (06:02→22:38)
[2023-03-30 06:27] LABS: Basophils # (auto) 0 10 ^3/uL (0-0.2); Basophils % (auto) 0.6 % (0.0-2.0); Eosinophils # (auto) 0 10 ^3/uL (0-0.8); Eosinophils % (auto) 0.8 % (0.0-7.0); Hematocrit 35.8 % (41.0-53.0); Hemoglobin 11.8 g/dL (13.5-17.5); Lymphocytes # (auto) 0.8 10 ^3/uL (0.4-5.4); Lymphocytes % (auto) 15.9 % (10.0-50.0); Mean Corpuscular Hemoglobin 28.1 pg (28.0-32.0); Mean Corpuscular Hgb Conc. 32.9 g/dL (32.0-36.0); Mean Corpuscular Volume 85.4 fL (80.0-100.0); Monocytes # (auto) 0.6 10 ^3/uL (0-1.3); Monocytes % (auto) 11.9 % (0.0-12.0); Neutrophils # (auto) 3.6 10 ^3/uL (1.6-8.6); Neutrophils % (auto) 70.8 % (37.0-80.0); Red Cell Distribution Width 17.7 % (11.8-14.3); White Blood Cell 5.1 10^3/uL (4.4-10.8)
[2023-03-30] MEDS: LEVOTHYROXINE SODIUM 25 MCG TAB PO SCH (06:36)
[2023-03-30] MEDS: InsuLIN REG 1unit/0.01ml Soln (100units/ml) SC SCH ×5 (06:36→23:02)
[2023-03-30] MEDS: ACCU-CHEK COMFORT CURVE STRIP VI SCH ×4 (06:36→22:47)
[2023-03-30 06:43] LABS: Potassium 4.2 mmol/L (3.5-5.1)
[2023-03-30 06:54] LABS: Calcium 8.2 mg/dL (8.5-10.1)
[2023-03-30] MEDS ORDERED: ADENOSINE 56 MG in GIVE UN-DILUTED 0 ML IV STA (07:53)
[2023-03-30 09:00] VITALS: BP 124/83
[2023-03-30] MEDS: ENOXAPARIN SOD 30 MG/0.3 ML SYRINGE SC SCH (10:44)
[2023-03-30] MEDS: TAMSULOSIN HYDROCHLORIDE 0.4 MG CAP PO SCH ×2 (10:44→22:38)
[2023-03-30] MEDS: cefTRIAXone 1GM/50ML D5W 50 ML IV SCH (10:45)
[2023-03-30] MEDS: CARVEDILOL 3.125 MG TAB PO SCH ×2 (10:45→22:00)
[2023-03-30 13:00] VITALS: BP 103/57
[2023-03-30 16:54] VITALS: BP 125/55
[2023-03-30] MEDS ORDERED: traMADol HCL 50 MG TAB PO PRN (20:30)
[2023-03-30 22:00] VITALS: BP 104/47
[2023-03-30] MEDS: ATORVASTATIN 20 MG TAB PO SCH (22:38)
[2023-03-31] VITALS (7 sets, daily range): BP systolic 94–128; BP diastolic 42–64
[2023-03-31] MEDS: metroNIDAZOLE 500 MG TAB PO SCH ×3 (06:00→23:00)
[2023-03-31] MEDS: LEVOTHYROXINE SODIUM 25 MCG TAB PO SCH (06:00)
[2023-03-31 06:04] LABS: Basophils # (auto) 0 10 ^3/uL (0-0.2); Basophils % (auto) 0.3 % (0.0-2.0); Eosinophils # (auto) 0.1 10 ^3/uL (0-0.8); Eosinophils % (auto) 1.6 % (0.0-7.0); Hematocrit 33.6 % (41.0-53.0); Lymphocytes # (auto) 1.1 10 ^3/uL (0.4-5.4); Lymphocytes % (auto) 23.6 % (10.0-50.0); Mean Corpuscular Hgb Conc. 32.8 g/dL (32.0-36.0); Mean Corpuscular Volume 85.5 fL (80.0-100.0); Monocytes # (auto) 0.7 10 ^3/uL (0-1.3); Monocytes % (auto) 14.6 % (0.0-12.0); Neutrophils # (auto) 2.8 10 ^3/uL (1.6-8.6); Neutrophils % (auto) 59.9 % (37.0-80.0); Nucleated Red Blood Cells % 0.1 %; Red Blood Cells 3.93 10^6/uL (4.5-5.90); Red Cell Distribution Width 17.9 % (11.8-14.3); White Blood Cell 4.7 10^3/uL (4.4-10.8)
[2023-03-31] MEDS: InsuLIN REG 1unit/0.01ml Soln (100units/ml) SC SCH ×4 (06:04→22:00)
[2023-03-31] MEDS: ACCU-CHEK COMFORT CURVE STRIP VI SCH ×4 (06:04→22:00)
[2023-03-31 06:18] LABS: Potassium 4.1 mmol/L (3.5-5.1)
[2023-03-31 06:31] LABS: BUN/Creatinine Ratio 24.7 (10.0-20.0); Calcium 8.1 mg/dL (8.5-10.1)
[2023-03-31] MEDS ORDERED: SODIUM CHLORIDE 0.9% 500 ML IV ONE (07:15)
[2023-03-31] MEDS: ENOXAPARIN SOD 30 MG/0.3 ML SYRINGE SC SCH (10:32)
[2023-03-31] MEDS: TAMSULOSIN HYDROCHLORIDE 0.4 MG CAP PO SCH ×2 (10:34→23:01)
[2023-03-31] MEDS: CARVEDILOL 3.125 MG TAB PO SCH ×2 (10:35→23:00)
[2023-03-31] MEDS: FUROSEMIDE 40 MG/4 ML VIAL IV SCH (10:37)
[2023-03-31] MEDS: cefTRIAXone 1GM/50ML D5W 50 ML IV SCH (10:39)
[2023-03-31] MEDS: ATORVASTATIN 20 MG TAB PO SCH (23:01)
[2023-04-01 05:00] VITALS: BP 90/54
[2023-04-01 05:53] LABS: Basophils # (auto) 0 10 ^3/uL (0-0.2); Basophils % (auto) 0.5 % (0.0-2.0); Eosinophils # (auto) 0.1 10 ^3/uL (0-0.8); Eosinophils % (auto) 1.8 % (0.0-7.0); Hematocrit 36.3 % (41.0-53.0); Lymphocytes % (auto) 19.9 % (10.0-50.0); Mean Corpuscular Hemoglobin 28.1 pg (28.0-32.0); Mean Corpuscular Hgb Conc. 33.1 g/dL (32.0-36.0); Monocytes # (auto) 0.7 10 ^3/uL (0-1.3); Monocytes % (auto) 14.1 % (0.0-12.0); Neutrophils # (auto) 3.1 10 ^3/uL (1.6-8.6); Neutrophils % (auto) 63.7 % (37.0-80.0); Nucleated Red Blood Cells % 0.1 %; Red Blood Cells 4.27 10^6/uL (4.5-5.90); Red Cell Distribution Width 18.3 % (11.8-14.3); White Blood Cell 4.9 10^3/uL (4.4-10.8)
[2023-04-01 06:04] LABS: Calcium 8.4 mg/dL (8.5-10.1); Potassium 4.2 mmol/L (3.5-5.1)
[2023-04-01 06:09] LABS: BUN/Creatinine Ratio 24.7 (10.0-20.0)
[2023-04-01] MEDS: InsuLIN REG 1unit/0.01ml Soln (100units/ml) SC SCH ×3 (06:40→17:00)
[2023-04-01] MEDS: ACCU-CHEK COMFORT CURVE STRIP VI SCH ×3 (06:42→17:00)
[2023-04-01] MEDS: LEVOTHYROXINE SODIUM 25 MCG TAB PO SCH (06:42)
[2023-04-01] MEDS: metroNIDAZOLE 500 MG TAB PO SCH ×2 (06:42→15:12)
[2023-04-01 08:00] VITALS: BP 108/54
[2023-04-01 09:00] VITALS: BP 150/70
[2023-04-01] MEDS: FUROSEMIDE 40 MG/4 ML VIAL IV SCH (10:11)
[2023-04-01] MEDS: cefTRIAXone 1GM/50ML D5W 50 ML IV SCH (10:12)
[2023-04-01] MEDS: TAMSULOSIN HYDROCHLORIDE 0.4 MG CAP PO SCH (10:13)
[2023-04-01] MEDS: ENOXAPARIN SOD 30 MG/0.3 ML SYRINGE SC SCH (10:13)
[2023-04-01] MEDS: CARVEDILOL 3.125 MG TAB PO SCH (10:13)
[2023-04-01] MEDS ORDERED: FURO1TAB33 PO (10:26)
[2023-04-01] MEDS ORDERED: MIDODRINE HCL 10 MG TAB PO SCH (12:00)
[2023-04-01 13:00] VITALS: BP 120/60
[2023-04-01 16:39] VITALS: BP 120/60
[2023-04-01 17:00] VITALS: BP 129/66
== END 2023-04-01 18:05 | disposition home or self-care (01) | DRG 432 ==
LOC: ER 15:06 → OVERFLOW 19:22 → EAST 03-25 05:55
PROVIDERS: ADMIT Nurse Practitioner Family; ATTEND Internal Medicine Pulmonary Disease
DX: K74.60 Unspecified cirrhosis of liver (principal); I50.43 Acute on chronic combined systolic (congestive) and diastolic (congestive) heart failure; N17.0 Acute kidney failure with tubular necrosis; I13.0 Hypertensive heart and chronic kidney disease with heart failure and stage 1 through stage 4 chronic kidney disease, or unspecified chronic kidney disease; D62 Acute posthemorrhagic anemia; E44.1 Mild protein-calorie malnutrition; E87.20 Acidosis, unspecified; J98.11 Atelectasis; R18.8 Other ascites; K52.9 Noninfective gastroenteritis and colitis, unspecified; E11.22 Type 2 diabetes mellitus with diabetic chronic kidney disease; D69.59 Other secondary thrombocytopenia; E87.5 Hyperkalemia; N40.0 Benign prostatic hyperplasia without lower urinary tract symptoms; N18.32 Chronic kidney disease, stage 3b; Z68.27 Body mass index [BMI] 27.0-27.9, adult; Z86.73 Personal history of transient ischemic attack (TIA), and cerebral infarction without residual deficits; I25.2 Old myocardial infarction; Z95.820 Peripheral vascular angioplasty status with implants and grafts
CPT/HCPCS: 36415; 36600; 71250; 74176; 76705; 80048; 80053; 80076; 81001; 82105; 82140; 82270; 82550; 82570; 82728; 82805; 82962; 83615; 83690; 83735; 83880; 84100; 84132; 84156; 84300; 84443; 84484; 84550; 85025; 85048; 85610; 85730; 86038; 86704; 86706; 86708; 86803; 87340; 93005; 93306; 93970; 94640; 96374; 96375; 97110; 97116; 97163; 97530; C9113; G0378; J0153; J0696; J1100; J1815; J3490

== ENCOUNTER 2024-11-14 17:36 | Inpatient (IN) | payer MEDICAID, OTHER ==
[~2024-11-14] VITALS: Ht 165.1 cm; Wt 58.0 kg
[2024-11-14] MEDS: SODIUM ZIRCONIUM CYCL 10 GM PAK PO ONE (00:20)
[~2024-11-14 17:36] MED LIST changes: -CAR3125T PO; +CARV-214 PO; +CARV3.1240 PO; +FURO1TAB33 PO; +FURO20TA4 PO; +LISI20TA56 PO; -TAMS0.4C36 PO; +TAMS0.4C39 PO
[2024-11-14 18:06] LABS: Basophils # (auto) 0 10 ^3/uL (0-0.2); Basophils % (auto) 0.1 % (0.0-2.0); Eosinophils # (auto) 0 10 ^3/uL (0-0.8); Hematocrit 36.3 % (41.0-53.0); Hemoglobin 11.9 g/dL (13.5-17.5); Lymphocytes # (auto) 0.8 10 ^3/uL (0.4-5.4); Lymphocytes % (auto) 6.9 % (10.0-50.0); Mean Corpuscular Hemoglobin 31.3 pg (28.0-32.0); Mean Corpuscular Hgb Conc. 32.8 g/dL (32.0-36.0); Mean Corpuscular Volume 95.4 fL (80.0-100.0); Monocytes % (auto) 8.4 % (0.0-12.0); Neutrophils # (auto) 10.3 10 ^3/uL (1.6-8.6); Neutrophils % (auto) 84.6 % (37.0-80.0); Platelet Count (auto) 221 10^3/uL (140-450); Red Cell Distribution Width 14.4 % (11.8-14.3); White Blood Cell 12.2 10^3/uL (4.4-10.8)
--- NOTE | 2024-11-14 18:12 | ED.PDOC ---
History of Present Illness HPI Comments 89-year-old male who comes in with chief complaint of flu-like symptoms over the past couple of days. The patient was had some nausea and vomiting for one day and then developed some chest pain after his productive cough. The patient has yellow sputum along with some shortness a breath. 911 was called and the patient was transported to our facility. The patient states that the pain is somewhat sharp in nature. EN route the patient was Accu-Chek was 113. Chief Complaint: Chest Pain Time Seen by MD: 17:41 Primary Care Provider: JOHN CABALLERO Reviewed Notes: Nurses Notes, Banking Supervisor Notes, Medications, Allergies (No allergies to medications) Allergies: Coded Allergies: NO KNOWN ALLERGIES (Unverified , 01/11/22) Home Meds Active Scripts Furosemide (Lasix) 20 Mg Tb, 1 TAB PO BID for 30 Days, #60 TAB 1 Refill Prov:YUNIOR VALLADARES MD 04/01/23 Carvedilol (COREG) 3.125 Mg Tab, 6.25 MG PO Q12HR for 30 Days, #60 TAB Prov:ATA HANLEY MD 01/16/22 Aspirin (Aspirin Low Strength) 81 Mg Chw, 81 MG PO DAILY for 30 Days, #30 TAB.CHEW Prov:ATA HANLEY MD 01/16/22 Levothyroxine Sodium (Levothyroxine Sodium) 25 Mcg Tab, 75 MCG PO QAM for 30 Days, #90 TAB Prov:ATA HANLEY MD 01/16/22 Tamsulosin Hcl (Flomax) 0.4 Mg Cap, 0.4 MG PO QPM for 30 Days, #30 CAP Prov:ATA HANLEY MD 01/16/22 Clopidogrel Bisulfate (CLOPIDOGREL) 75 Mg Tab, 75 MG PO DAILY for 30 Days, #30 TAB Prov:ATA HANLEY MD 01/16/22 Atorvastatin Calcium (ATORVASTATIN CALCIUM) 20 Mg Tab, 10 MG PO HS for 30 Days, #15 TAB Prov:ATA HANLEY MD 01/16/22 Reported Medications Levothyroxine Sodium (Levothyroxine Sodium) 88 Mcg Tab, 75 MCG PO QAM for 30 Days, MCG 01/12/22 Tamsulosin Hcl (Tamsulosin Hcl) 0.4 Mg Cap, 0.4 MG PO BID for 30 Days, MG 01/12/22 Carvedilol (Carvedilol) 6.25 Mg Tab, 6.25 MG PO Q12HR for 30 Days, MG 01/12/22 Aspirin (ASPIRIN 81) 81 Mg Tab, 81 MG PO DAILY, TAB 01/12/22 Information Source: Patient, Emergency Med Personnel Mode of Arrival: EMS Severity: Moderate Timing: Days Duration: Since onset Prehospital treatment: 12 Lead EKG, Accucheck (113), Network Systems Administrator Location: Substernal chest pain with shortness for breath Associated signs and symptoms No nausea, vomiting or diarrhea but the patient was having a shortness a breath Past Medical History PAST MEDICAL HISTORY: CVA, DM, High Lipids, HTN, MT Past Medical History (Other): BPH Surgical History: Pt Confused Family History Family History: Reviewed,noncontributory to illness Social History Smoker: Non-Smoker Alcohol: Denies ETOH Use Drugs: Denies Drug Use Lives In: Home Constitutional: reports: weakness; denies: chills, diaphoresis, fatigue, fever, malaise, sweats, others EENTM: denies: blurred vision, double vision, ear bleeding, ear discharge, ear drainage, ear pain, ear ringing, eye pain, eye redness, hearing loss, mouth pain, mouth swelling, nasal discharge, nose bleeding, nose congestion, nose pain, photophobia, tearing, throat pain, throat swelling, voice changes, others Respiratory: reports: cough, shortness of breath; denies: hemoptysis, orthopnea, SOB at rest, SOB with excertion, stridor, wheezing, others Cardiovascular: reports: chest pain; denies: dizzy spells, diaphoresis, Dyspnea on exertion, edema, irregular heart beat, left arm pain, lightheadedness, palpitations, PND, syncope, others Gastrointestinal: reports: nausea, vomiting; denies: abdomen distended, abdominal pain, blood streaked bowels, constipated, diarrhea, dysphagia, difficulty swallowing, hematemesis, melena, poor appetite, poor fluid intake, rectal bleeding, rectal pain, others Genitourinary: denies: burning, dysuria, flank pain, frequency, hematuria, incontinence, penile discharge, penile sore, pain, testicle pain, testicle swelling, urgency, others Neurological: denies: dizziness, fainting, headache, left sided numbness, left sided weakness, numbness, paresthesia, pre-existing deficit, right sided numbness, right sided weakness, seizure, speech problems, tingling, tremors, weakness, others Musculoskeletal: denies: back pain, gout, joint pain, joint swelling, muscle pain, muscle stiffness, neck pain, others Integumetry: denies: bruises, change in color, change in hair/nails, dryness, laceration, lesions, lumps, rash, wounds, others Allergic/Immunocompromised: denies: Difficulty Healing, Frequent Infections, Hives, Itching, others Hematologic/Lymphatic: denies: anemia, blood clots, easy bleeding, easy bruising, swollen glands, others Endocrine: denies: excessive hunger, excessive sweating, excessive thirst, excessive urination, flushing, intolerance to cold, intolerance to heat, unexplained weight gain, unexplained weight loss, others Psychiatric: denies: anxiety, bipolar disorder, depression, hopeless, panic disorder, schizophrenia, sleepless, suicidal, others Physical Exam General Appearance: Moderate Distress HEENT: Normal ENT Inspection, Pharynx Normal, TMs Normal Neck: Full Range of Motion, Non-Tender, Normal, Normal Inspection Respiratory: Chest Non-Tender, Decreased Breath Sounds, No Accessory Muscle Use, Rhonchi Cardiovascular: No Edema, No JVD, No Murmur, No Gallop, Normal Peripheral Pulses, Regular Rate/Rhythm Breast Exam: Deferred Gastrointestinal: No Organomegaly, Non Tender, No Pulsatile Mass, Normal Bowel Sounds, Soft Genitalia: Deferred Pelvic: Deferred Rectal: Deferred Extremities: No calf tenderness, Normal capillary refill, No pedal edema Musculoskeletal : Apperance: Normal Neurologic: Alert, financial consultant II-XII nml as Tested, Motor Weakness, Normal Affect, Normal Mood, No Sensory Deficits Cerebellar Function: Unable to Test Reflexes: Normal Skin: Dry, Pallor, Warm Lymphatic: No Adenopathy Was a procedure done? Was a procedure done?: No EKG EKG : Pulse Rate (adult): 97 Deputy: Normal Cardiac Rhythm: NSR Block: None ST: Nonsp Differential Dx Considerations may include: ACS, MT, generalized weakness, COVID, influenza, pneumonia X-Ray, Labs, Meds, VS Vital Signs Date Time Temp Pulse Resp B/P (MAP) Pulse Ox O2 Delivery O2 Flow Rate FiO2 11/14/24 18:33 101 11/14/24 18:12 97 11/14/24 17:43 99.3 96 18 125/67 (86) 98 11/14/24 17:39 97 Lab Test 11/14/24 18:47 11/14/24 17:48 Range/Units Troponin I High Sensitivity Pending 60 *H </=54 ng/L White Blood Count 12.2 H 4.4-10.8 10^3/uL Red Blood Count 3.80 L 4.5-5.90 10^6/uL Hemoglobin 11.9 L 13.5-17.5 g/dL Hematocrit 36.3 L 41.0-53.0 % Mean Corpuscular Volume 95.4 80.0-100.0 fL Mean Corpuscular Hemoglobin 31.3 28.0-32.0 pg Mean Corpuscular Hemoglobin Concent 32.8 32.0-36.0 g/dL Red Cell Distribution Width 14.4 H 11.8-14.3 % Platelet Count 221 140-450 10^3/uL Mean Platelet Volume 7.6 6.9-10.8 fL Neutrophils (%) (Auto) 84.6 H 37.0-80.0 % Lymphocytes (%) (Auto) 6.9 L 10.0-50.0 % Monocytes (%) (Auto) 8.4 0.0-12.0 % Eosinophils (%) (Auto) 0.0 0.0-7.0 % Basophils (%) (Auto) 0.1 0.0-2.0 % Neutrophils # (Auto) 10.3 H 1.6-8.6 10 ^3/uL Lymphocytes # (Auto) 0.8 0.4-5.4 10 ^3/uL Monocytes # (Auto) 1.0 0-1.3 10 ^3/uL Eosinophils # (Auto) 0 0-0.8 10 ^3/uL Basophils # (Auto) 0 0-0.2 10 ^3/uL Nucleated Red Blood Cells 0.0 % Sodium Level 135 L 136-145 mmol/L Potassium Level 7.1 *H 3.5-5.1 mmol/L Chloride Level 109 H 98-107 mmol/L Carbon Dioxide Level 13 L 20-31 mmol/L Anion Gap 13 5-15 Blood Urea Nitrogen 72 H 9-23 mg/dL Creatinine 3.50 H 0.700-1.30 mg/dL Glomerular Filtration Rate Calc 16 >90 mL/min BUN/Creatinine Ratio 20.6 H 10.0-20.0 Serum Glucose 120 H 74-106 mg/dL Calcium Level 9.4 8.7-10.4 mg/dL Total Bilirubin 0.3 0.2-1.0 mg/dL Aspartate Amino Transferase (AST) 14 13-40 U/L Alanine Aminotransferase (ALT) 9 7-40 U/L Alkaline Phosphatase 104 46-116 U/L B-Type Natriuretic Peptide Pending Total Protein 8.1 5.7-8.2 g/dL Albumin 4.7 3.2-4.8 g/dL IV Hep-Lock is being established The troponin is elevated at 60 The CBC shows an elevated white blood cell count of 12.2 The chemistry panel shows hyperkalemia at 7.1 The BUN and creatinine are elevated The CO2 level of 13 At this time, the patient was being admitted to the hospitalist A chest x-ray shows:IMPRESSION: Mild pulmonary vascular congestion. The patient was being given Lasix 40 mg IV push The patient understands and agrees with the management The patient was being admitted at this time The patient was given sodium bicarbonate, calcium, insulin and dextrose IV for the hyperkalemia At this time, the patient was being admitted Images Reviewed?: Images reviewed and evaluated by me Time of 1ST Reevaluation: 18:11 Reevaluation 1ST: Unchanged Patient Education/Counseling: Diagnosis, Treatment, Prognosis Family Education/Counseling: No Family Present Departure 1 Departure Time of Disposition: 19:37 Impression: Primary Impression: Acute on chronic diastolic heart failure Additional Impressions: Acute renal failure Qualified Codes: N17.1 - Acute kidney failure with acute cortical necrosis Hyperkalemia Generalized weakness Disposition: 09 ADMITTED INPATIENT Admit to: [facility] Condition: Fair Critical Care Note Critical Care Time?: Yes (45 min-critical care time only) Stability Stability form required: Yes Unstable for transfer: Telemetry monitoring (Telemetry monitoring required), ED Physician Assesment (Clinical assesment) Heart Score Heart Score: Heart Score Response (Comments) Value History Moderate Suspicious 1 EKG Repolarization Disturb 1 Age >65 2 Risk Factors >3 or Hx ASHD 2 Troponin Normal limit 0 Total 6 REEMA MAX MD Nov 14, 2024 18:12
[2024-11-14 18:18] LABS: Albumin 4.7 g/dL (3.2-4.8); Alkaline Phosphatase 104 U/L (46-116); Anion Gap 13 (5-15); Aspartate Aminotransferase 14 U/L (13-40); BUN/Creatinine Ratio 20.6 (10.0-20.0); Bilirubin, Total 0.3 mg/dL (0.2-1.0); Calcium 9.4 mg/dL (8.7-10.4); Total Protein 8.1 g/dL (5.7-8.2)
[2024-11-14 18:41] LABS: Alanine Aminotransferase 9 U/L (7-40); Blood Urea Nitrogen 72 mg/dL (9-23); Carbon Dioxide 13 mmol/L (20-31); Chloride 109 mmol/L (98-107); Glucose 120 mg/dL (74-106); Sodium 135 mmol/L (136-145)
[2024-11-14 18:43] LABS: Potassium 7.1 mmol/L (3.5-5.1)
--- NOTE | 2024-11-14 18:52 | DVH ---
CHEST RADIOGRAPH Indication: cough Technique: Single frontal view of the chest was obtained Comparison: CXR1 on DOS: 01/12/22, CHEST XRAY 1 VIEW on DOS: 01/12/22 FINDINGS: Lines and Tubes: None Lungs: No focal consolidation. Interstitial prominence. Pleura: No effusion. No pneumothorax. Cardiomediastinal contours: Unremarkable Bones: No acute osseous abnormality. Midline sternotomy wires noted. IMPRESSION: Mild pulmonary vascular congestion.
--- NOTE | 2024-11-14 19:09 | ECG ---
[facility] Test Date: 2024-11-14 Test Time: 17:37:02 Pat Name: JAZZ HOPKINS Department: ED Room: [address] [place] [address] Gender: M Station Helper: TA : 1935 Requested By: REEMA MAX Order Number: [id number] Reading MD: Pablo Colón Measurements Intervals [place] Rate: 97 P: 82 SD: 159 QRS: 58 QRSD: 109 T: -90 QT: 355 QTc: 451 Interpretive Statements Sinus rhythm Borderline repolarization abnormality Inferior lateral ischemia Baseline wander in lead(s) V3 Electronically Signed On 11-15-2024 22:22:33 PST by Pablo Colón Please click the below link to view image of tracing.
--- NOTE | 2024-11-14 19:10 | ECG ---
[facility] Test Date: 2024-11-14 Test Time: 18:31:55 Pat Name: JAZZ HOPKINS Department: ED Room: [address] [place] [address] Gender: M C++ Quant Developer: TA : 1935 Requested By: REEMA MAX Order Number: [id number] Reading MD: Pablo Colón Measurements Intervals [place] Rate: 101 P: 67 [place]: 159 QRS: 65 QRSD: 106 T: 242 QT: 307 QTc: 398 Interpretive Statements Sinus tachycardia Borderline repolarization abnormality Baseline wander in lead(s) V3 Electronically Signed On 11-15-2024 22:23:57 PST by Pabol Colón Please click the below link to view image of tracing.
[2024-11-14 20:00] VITALS: O2SAT 96
[2024-11-14] MEDS ORDERED: NITROGLYCERIN 0.4 MG SL TAB SL PRN (20:15)
[2024-11-14] MEDS ORDERED: MORPHINE SULFATE INJ 2 MG/ml SYRG IV PRN (20:15)
[2024-11-14] MEDS: DEXTROSE (50%) 50ML SYRG IV ONE (21:05)
[2024-11-14] MEDS: InsuLIN REG 1unit/0.01ml Soln (100units/ml) IV ONE (21:06)
[2024-11-14] MEDS: SODIUM BICARB 8.4% 50Meq/50ml SYR Vial IV ONE (21:07)
[2024-11-14] MEDS: CALCIUM GLUC 1,000mg/50ml-NS 50 ML IV ONE (21:23)
[2024-11-14] MEDS: SODIUM CHLORIDE 0.9% 1,000 ML IVB ONE (21:24)
[2024-11-14] MEDS ORDERED: ONDANSETRON HCL 4 MG/2 ML VIAL IV PRN (23:15)
[2024-11-14] MEDS ORDERED: DEXTROSE (50%) 50ML SYRG IV PRN (23:15)
[2024-11-14] MEDS ORDERED: ALBUTEROL SULF 2.5 MG/0.5ML(0.5%) NEB SOLN NEB PRN (23:15)
[2024-11-14] MEDS: ALBUTEROL SULF 2.5 MG/0.5ML(0.5%) NEB SOLN NEB ONE (23:16)
--- NOTE | 2024-11-14 23:16 | DVHHP2 ---
History of Present Illness Reason for Visit: Shortness for breath History of Present Illness 89-year-old male presents for evaluation of shortness for breath. Patient presents with flu-like symptoms ongoing for the past couple of days. He reports shortness for breath with mild chest pressure and a nonproductive cough. No fev er or chills. He has also been having some nausea. Denies any other complaints at the moment. Past Medical History IA, CHF, hypertension, dyslipidemia, diabetes mellitus, CVA, BPH Past Surgical History Denies Family History Noncontributory Smoke: No ALCOHOL: none Drugs: None Lives: with Family Review of Systems Review of Systems Review of systems are currently negative otherwise addressed in HPI. Allergies: Coded Allergies: NO KNOWN ALLERGIES (Unverified , 01/11/22) Medications Current Medications Medications Dose Ordered Sig/Alex Route Start Time Stop Time Status Last Admin Dose Admin Nitroglycerin 0.4 mg Q5MINP PRN SL 11/14/24 20:15 Morphine Sulfate 2 mg Q30M PRN IV 11/14/24 20:15 Exam Vital Signs Vital Signs Date Time Temp Pulse Resp B/P (MAP) Pulse Ox O2 Delivery O2 Flow Rate FiO2 11/14/24 21:05 101 11/14/24 17:43 99.3 18 125/67 (86) 98 Exam Gen: 89-year-old male in moderate distress Skin: Warm, dry, normal color and texture, no rash. HEENT: Normocephalic atraumatic, mucous membranes moist and pink. Neck: Cervical and supraclavicular nodes normal without enlargement, trachea is midline, thyroid gland is normal without masses. Pulmonary: Clear to auscultation and percussion bilaterally. Cardiac: Tachycardia Abdomen: Soft, nontender, nondistended, bowel sounds present all 4 quadrants, no guarding, no rigidity, no organomegaly. Extremities: No cyanosis, clubbing, no edema Neuro: Cranial nerves II through XII grossly intact, normal affect and speech, no focal motor deficits. Labs/Xrays ORDERING PHYSICIAN: REEMA MAX MD PROCEDURE(s): CXRP - CHEST PORTABLE REASON: cough ORDER NUMBER(s): [id number], ACCESSION NUMBER(s): [id number] CHEST RADIOGRAPH Indication: cough Technique: Single frontal view of the chest was obtained Comparison: CXR1 on DOS: 01/12/22, CHEST XRAY 1 VIEW on DOS: 01/12/22 FINDINGS: Lines and Tubes: None Lungs: No focal consolidation. Interstitial prominence. Pleura: No effusion. No pneumothorax. Cardiomediastinal contours: Unremarkable Bones: No acute osseous abnormality. Midline sternotomy wires noted. IMPRESSION: Mild pulmonary vascular congestion. Labs Test 11/14/24 22:33 11/14/24 21:05 11/14/24 20:26 11/14/24 17:48 Range/Units Troponin I High Sensitivity 49 </=54 ng/L POC Glucose 120 H 70-106 mg/dl White Blood Count 12.2 H 4.4-10.8 10^3/uL Red Blood Count 3.80 L 4.5-5.90 10^6/uL Hemoglobin 11.9 L 13.5-17.5 g/dL Hematocrit 36.3 L 41.0-53.0 % Mean Corpuscular Volume 95.4 80.0-100.0 fL Mean Corpuscular Hemoglobin 31.3 28.0-32.0 pg Mean Corpuscular Hemoglobin Concent 32.8 32.0-36.0 g/dL Red Cell Distribution Width 14.4 H 11.8-14.3 % Platelet Count 221 140-450 10^3/uL Mean Platelet Volume 7.6 6.9-10.8 fL Neutrophils (%) (Auto) 84.6 H 37.0-80.0 % Lymphocytes (%) (Auto) 6.9 L 10.0-50.0 % Monocytes (%) (Auto) 8.4 0.0-12.0 % Eosinophils (%) (Auto) 0.0 0.0-7.0 % Basophils (%) (Auto) 0.1 0.0-2.0 % Neutrophils # (Auto) 10.3 H 1.6-8.6 10 ^3/uL Lymphocytes # (Auto) 0.8 0.4-5.4 10 ^3/uL Monocytes # (Auto) 1.0 0-1.3 10 ^3/uL Eosinophils # (Auto) 0 0-0.8 10 ^3/uL Basophils # (Auto) 0 0-0.2 10 ^3/uL Nucleated Red Blood Cells 0.0 % Sodium Level 135 L 136-145 mmol/L Potassium Level 7.1 *H 3.5-5.1 mmol/L Chloride Level 109 H 98-107 mmol/L Carbon Dioxide Level 13 L 20-31 mmol/L Anion Gap 13 5-15 Blood Urea Nitrogen 72 H 9-23 mg/dL Creatinine 3.50 H 0.700-1.30 mg/dL Glomerular Filtration Rate Calc 16 >90 mL/min BUN/Creatinine Ratio 20.6 H 10.0-20.0 Serum Glucose 120 H 74-106 mg/dL Calcium Level 9.4 8.7-10.4 mg/dL Total Bilirubin 0.3 0.2-1.0 mg/dL Aspartate Amino Transferase (AST) 14 13-40 U/L Alanine Aminotransferase (ALT) 9 7-40 U/L Alkaline Phosphatase 104 46-116 U/L B-Type Natriuretic Peptide 414.14 0-100 pg/mL Total Protein 8.1 5.7-8.2 g/dL Albumin 4.7 3.2-4.8 g/dL Assessment/Plan Assessment/Plan Assessment Acute renal failure with hyperkalemia Acute on chronic respiratory distress CHF Diabetes mellitus History of CVA with left-sided deficits Plan Admit the patient to [facility] to the hospitalist Hyperkalemia protocol Azithromycin Nephrology consultation Resume home medications Echocardiogram pending Continue treatment per orders. Plan discussed with: Patient My Orders Orders - FRED VELASQUEZ Procedure Category Date Status Time Admit ADMIT 11/14/24 Transmitted 20:11 Nitroglycerin PHA 11/14/24 In Process Sublingual (Ntrostat 20:15 Morphine Sulfate PHA 11/14/24 In Process Injection 20:15 Stat Ekg For Chest NILA 11/14/24 In Process Pain 20:11 Notify Of Changes NILA 11/14/24 In Process From Base 20:11 Cloud Systems Architect For NILA 11/14/24 In Process 24 Hours 20:11 Emergency Dysrhythmia NILA 11/14/24 In Process Protocol 20:11 Rhythm Strips Once NILA 11/14/24 In Process Every Shift 20:11 Oxygen By Nasal RT 11/14/24 Transmitted Cannula 20:11 Transfer Orders XFER 11/14/24 Transmitted 23:00 Sodium Zirconium PHA 11/14/24 Transmitted Cyclosilicate 23:15 *[facility] CONS 11/14/24 Transmitted -[place] 23:01 Basic Metabolic Panel LAB 11/15/24 Verified 02:00 Carvedilol Tablet PHA 11/15/24 Transmitted (Coreg Tablet) 10:00 Furosemide Injection PHA 11/14/24 Transmitted (Lasix Injection) 23:15 Atorvastatin (Lipitor) PHA 11/15/24 Transmitted 22:00 Clopidogrel Bisulfate PHA 11/15/24 Transmitted (Plavix) 10:00 Levothyroxine Tablet PHA 11/15/24 Transmitted (Synthroid Tablet) 06:00 Tamsulosin PHA 11/15/24 Transmitted Hydrochloride (Flomax) 18:00 Glucose Blood PHA 11/15/24 Transmitted (Accu-Chek Comfort 07:00 Mild Sliding Scale PHA 11/15/24 Transmitted 07:00 Dextrose 50% Syringe PHA 11/14/24 Transmitted 23:15 Renal DIET 11/15/24 Transmitted Standard(2gna,3gk,Lopho) Breakfast Ondansetron Hcl PHA 11/14/24 Transmitted (Zofran) 23:15 Complete Blood Count LAB 11/15/24 Verified 04:00 Condition: Serious NILA 11/14/24 Transmitted 23:01 Acetaminophen Tablet PHA 11/14/24 Transmitted (Tylenol Tablet) 23:15 Bedrest With Bathroom NILA 11/14/24 Transmitted Privileg 23:01 Echo 2d Mode Cardiac US 11/14/24 Transmitted DOP 23:01 Date of Service: Nov 14, 2024 Billing Provider: FRED VELASQUEZ Common Visit Codes: 45052-[id number] CARE 30-74 MIN FRED VELASQUEZ Nov 14, 2024 23:16
[2024-11-14 23:19] VITALS: BP 125/67; PULSE 101; RESP 20; O2SAT 95
[2024-11-14 23:19] LABS: COVID19 ANTIGEN SOFIA FIA NEGATIVE (NEGATIVE); Rapid Influenza A Negative (Negative); Rapid Influenza B Negative (Negative)
[2024-11-15] MEDS: FUROSEMIDE 20 MG/2 ML VIAL IV SCH (00:09)
[2024-11-15] MEDS: AZITHROMYCIN 500MG/ 250ML 250 ML IV ONE (00:11)
[2024-11-15 03:00] VITALS: PULSE 110; RESP 18; O2SAT 96
[2024-11-15 04:26] LABS: Sodium 140 mmol/L (136-145)
[2024-11-15 04:27] LABS: Anion Gap 17 (5-15)
[2024-11-15 04:28] LABS: Calcium 9.5 mg/dL (8.7-10.4)
[2024-11-15 04:33] LABS: BUN/Creatinine Ratio 21.1 (10.0-20.0); Basophils # (auto) 0 10 ^3/uL (0-0.2); Blood Urea Nitrogen 70 mg/dL (9-23); Carbon Dioxide 12 mmol/L (20-31); Chloride 111 mmol/L (98-107); Eosinophils # (auto) 0 10 ^3/uL (0-0.8); Glucose 213 mg/dL (74-106); Hematocrit 33.5 % (41.0-53.0); Hemoglobin 10.6 g/dL (13.5-17.5); Lymphocytes # (auto) 0.3 10 ^3/uL (0.4-5.4); Lymphocytes % (auto) 2.3 % (10.0-50.0); Mean Corpuscular Hemoglobin 30.9 pg (28.0-32.0); Mean Corpuscular Hgb Conc. 31.8 g/dL (32.0-36.0); Mean Corpuscular Volume 97.2 fL (80.0-100.0); Monocytes # (auto) 1.2 10 ^3/uL (0-1.3); Monocytes % (auto) 10.4 % (0.0-12.0); Neutrophils # (auto) 10.3 10 ^3/uL (1.6-8.6); Neutrophils % (auto) 87.3 % (37.0-80.0); Platelet Count (auto) 215 10^3/uL (140-450); Potassium 5.4 mmol/L (3.5-5.1); Red Blood Cells 3.45 10^6/uL (4.5-5.90); Red Cell Distribution Width 14.6 % (11.8-14.3); White Blood Cell 11.8 10^3/uL (4.4-10.8)
--- NOTE | 2024-11-15 05:14 | ECG ---
[facility] Test Date: 2024-11-14 Test Time: 21:05:31 Pat Name: JAZZ HOPKINS Department: ER Room: [address] [place] [address] Gender: M Salon Professional: ER : 1935 Requested By: REEMA MAX Order Number: [id number] Reading MD: Pablo Colón Measurements Intervals [place] Rate: 101 P: 80 [place]: 157 QRS: 69 QRSD: 110 T: 45 QT: 365 QTc: 474 Interpretive Statements Sinus tachycardia Borderline repolarization abnormality Electronically Signed On 11-15-2024 22:25:56 PST by Pablo Colón Please click the below link to view image of tracing.
[2024-11-15 05:46] LABS: Urine Bacteria FEW /hpf (None Seen); Urine Blood 1+ /uL (Negative); Urine Clarity Turbid (Clear); Urine Color Light-Yellow (Yellow); Urine Mucus FEW (None Seen); Urine Protein, UAD 2+ (Negative); Urine Specific Gravity 1.011 (1.001-1.035); Urine Squamous Epithelial Cell FEW /hpf (<5); Urine Urobilinogen Normal (Negative); Urine WBC 63 /HPF (0-3); Urine pH 6.5 (5.0-9.0)
[2024-11-15] MEDS: ACCU-CHEK COMFORT CURVE STRIP VI SCH (07:00)
[2024-11-15] MEDS: InsuLIN REG 1unit/0.01ml Soln (100units/ml) SC SCH (07:00)
[2024-11-15] MEDS: LEVOTHYROXINE SODIUM 88 MCG TAB PO SCH (07:47)
[2024-11-15 09:47] VITALS: O2SAT 99
[2024-11-15 09:48] VITALS: O2SAT 99
[2024-11-15] MEDS: CLOPIDOGREL BISULFATE 75 MG TAB PO SCH (10:00)
[2024-11-15] MEDS: CARVEDILOL 3.125 MG TAB PO SCH (10:00)
[2024-11-15] MEDS: SODIUM BICARB 50mEq/50ml Vial 150 ML in D5W 5% 1,000 ML IV ONE (11:09)
[2024-11-15 13:05] LABS: Anion Gap 12 (5-15); Potassium 4.7 mmol/L (3.5-5.1); Sodium 143 mmol/L (136-145)
[2024-11-15 13:06] LABS: Calcium 9.4 mg/dL (8.7-10.4)
[2024-11-15 13:11] LABS: BUN/Creatinine Ratio 22.1 (10.0-20.0)
[2024-11-15 13:17] LABS: Carbon Dioxide 18 mmol/L (20-31); Chloride 113 mmol/L (98-107); Glucose 136 mg/dL (74-106)
[2024-11-15 13:18] LABS: Blood Urea Nitrogen 73 mg/dL (9-23)
--- NOTE | 2024-11-15 13:39 | DVHINCON2 ---
Date of service: Nov 15, 2024 Referring Physician Hamida Kaplan Reason for Consultation CHF History of Present Illness This is an 89-year-old male with a PMH of CVA, DM, High Lipids, HTN, [place], BPH who presents to the ED with complaints of flu-like symptoms x 2 days. Patient reports symptoms of nausea and vomiting x 1 day then developed some chest pain after his productive cough. Patient has yellow sputum along with some shortness a breath. Patient states that the pain is somewhat sharp in nature. Viral swabs are negative. WBC 12.2, K 7.1, BUN 72, Roll Forming Supervisor 3.50. Troponin 60 > 57. BNP 414. Chest x-ray shows mild pulmonary vascular congestion. Patient was admitted to the hospital. I am asked to consult on this patient. Family History: Patient reports no known family medical history. Allergies: Coded Allergies: NO KNOWN ALLERGIES (Unverified , 01/11/22) Home Meds Active Scripts Furosemide (Lasix) 20 Mg Tb, 1 TAB PO BID for 30 Days, #60 TAB 1 Refill Prov:YUNIOR VALLADARES MD 04/01/23 Carvedilol (COREG) 3.125 Mg Tab, 6.25 MG PO Q12HR for 30 Days, #60 TAB Prov:ATA HANLEY MD 01/16/22 Aspirin (Aspirin Low Strength) 81 Mg Chw, 81 MG PO DAILY for 30 Days, #30 TAB.CHEW Prov:ATA HANLEY MD 01/16/22 Levothyroxine Sodium (Levothyroxine Sodium) 25 Mcg Tab, 75 MCG PO QAM for 30 Days, #90 TAB Prov:ATA HANLEY MD 01/16/22 Tamsulosin Hcl (Flomax) 0.4 Mg Cap, 0.4 MG PO QPM for 30 Days, #30 CAP Prov:ATA HANLEY MD 01/16/22 Clopidogrel Bisulfate (CLOPIDOGREL) 75 Mg Tab, 75 MG PO DAILY for 30 Days, #30 TAB Prov:ATA HANLEY MD 01/16/22 Atorvastatin Calcium (ATORVASTATIN CALCIUM) 20 Mg Tab, 10 MG PO HS for 30 Days, #15 TAB Prov:ATA HANLEY MD 01/16/22 Reported Medications Levothyroxine Sodium (Levothyroxine Sodium) 88 Mcg Tab, 75 MCG PO QAM for 30 Days, MCG 01/12/22 Tamsulosin Hcl (Tamsulosin Hcl) 0.4 Mg Cap, 0.4 MG PO BID for 30 Days, MG 01/12/22 Carvedilol (Carvedilol) 6.25 Mg Tab, 6.25 MG PO Q12HR for 30 Days, MG 01/12/22 Aspirin (ASPIRIN 81) 81 Mg Tab, 81 MG PO DAILY, TAB 01/12/22 Current Medications Current Medications Medications (Trade) Dose Ordered Sig/Alex Route PRN Reason Start Time Stop Time Status Last Admin Nitroglycerin (Ntrostat Sublingual) 0.4 mg Q5MINP PRN SL FOR CHEST PAIN 11/14/24 20:15 Morphine Sulfate 2 mg Q30M PRN IV FOR CHEST PAIN 11/14/24 20:15 Carvedilol (Coreg Tablet) 3.125 mg Q12HR PO 11/15/24 10:00 Furosemide (Lasix Injection) 20 mg BIDD IV 11/14/24 23:15 11/15/24 07:47 Atorvastatin Calcium (Lipitor) 20 mg HS PO 11/15/24 22:00 Clopidogrel Bisulfate (Plavix) 75 mg DAILY PO 11/15/24 10:00 Levothyroxine Sodium (Synthroid Tablet) 88 mcg QAM@0600 PO 11/15/24 06:00 11/15/24 07:47 Tamsulosin HCl (Flomax) 0.4 mg QPM PO 11/15/24 18:00 Diagnostic Test (Pha) (Accu-Chek Comfort Curve T) 1 strip ACHS 11/15/24 07:00 11/15/24 11:16 Insulin Human Regular (InsuLIN R) ACHS SC 11/15/24 07:00 11/15/24 11:19 Dextrose 50 ml UD PRN IV Blood Sugar LESS THAN 60 11/14/24 23:15 Ondansetron HCl (Zofran) 4 mg Q4HP PRN IV NAUSEA / VOMITING 11/14/24 23:15 Acetaminophen (Tylenol Tablet) 650 mg Q6HP PRN PO PAIN SCALE 1-3 OR TEMP>100.4 11/14/24 23:15 Azithromycin 250 ml @ 125 mls/hr DAILY@2300 IV 11/15/24 23:00 Albuterol (Ventolin Medneb) 2.5 mg Q6HPRN PRN NEB SHORTNESS OF BREATH 11/14/24 23:15 Review of Systems Constitutional: reports: weakness; denies: chills, diaphoresis, fatigue, fever, malaise, sweats, others EENTM: denies: blurred vision, double vision, ear bleeding, ear discharge, ear drainage, ear pain, ear ringing, eye pain, eye redness, hearing loss, mouth pain, mouth swelling, nasal discharge, nose bleeding, nose congestion, nose pain, photophobia, tearing, throat pain, throat swelling, voice changes, others Respiratory: reports: cough, shortness of breath; denies: hemoptysis, orthopnea, SOB at rest, SOB with excertion, stridor, wheezing, others Cardiovascular: reports: chest pain; denies: dizzy spells, diaphoresis, Dyspnea on exertion, edema, irregular heart beat, left arm pain, lightheadedness, palpitations, PND, syncope, others Gastrointestinal: reports: nausea, vomiting; denies: abdomen distended, abdominal pain, blood streaked bowels, constipated, diarrhea, dysphagia, difficulty swallowing, hematemesis, melena, poor appetite, poor fluid intake, rectal bleeding, rectal pain, others Genitourinary: denies: burning, dysuria, flank pain, frequency, hematuria, incontinence, penile discharge, penile sore, pain, testicle pain, testicle swelling, urgency, others Neurological: denies: dizziness, fainting, headache, left sided numbness, left sided weakness, numbness, paresthesia, pre-existing deficit, right sided numbness, right sided weakness, seizure, speech problems, tingling, tremors, wea kness, others Musculoskeletal: denies: back pain, gout, joint pain, joint swelling, muscle pain, muscle stiffness, neck pain, others Integumetry: denies: bruises, change in color, change in hair/nails, dryness, l aceration, lesions, lumps, rash, wounds, others Allergic/Immunocompromised: denies: Difficulty Healing, Frequent Infections, Hives, Itching, others Hematologic/Lymphatic: denies: anemia, blood clots, easy bleeding, easy bruising, swollen glands, others Endocrine: denies: excessive hunger, excessive sweating, excessive thirst, excessive urination, flushing, intolerance to cold, intolerance to heat, unexplained weight gain, unexplained weight loss, others Psychiatric: denies: anxiety, bipolar disorder, depression, hopeless, panic disorder, schizophrenia, sleepless, suicidal, others Vital Signs Vital Signs Date Time Temp Pulse Resp B/P (MAP) Pulse Ox O2 Delivery O2 Flow Rate FiO2 11/15/24 10:00 65 175/89 11/15/24 09:48 99 Room Air* 0 21 11/15/24 08:03 20 11/15/24 03:00 98.1 98.1 Physical Exam GENERAL: Awake, alert, oriented. LUNGS: Decreased breath sounds. CARDIOVASCULAR: Heart sounds are good. ABDOMEN: Soft. Labs/Diagnostic Data Labs Test 11/15/24 11:14 11/15/24 03:19 11/15/24 02:20 11/14/24 23:20 Range/Units POC Glucose 153 H 70-106 mg/dl White Blood Count 11.8 H 4.4-10.8 10^3/uL Red Blood Count 3.45 L 4.5-5.90 10^6/uL Hemoglobin 10.6 L 13.5-17.5 g/dL Hematocrit 33.5 L 41.0-53.0 % Mean Corpuscular Volume 97.2 80.0-100.0 fL Mean Corpuscular Hemoglobin 30.9 28.0-32.0 pg Mean Corpuscular Hemoglobin Concent 31.8 L 32.0-36.0 g/dL Red Cell Distribution Width 14.6 H 11.8-14.3 % Platelet Count 215 140-450 10^3/uL Mean Platelet Volume 7.6 6.9-10.8 fL Neutrophils (%) (Auto) 87.3 H 37.0-80.0 % Lymphocytes (%) (Auto) 2.3 L 10.0-50.0 % Monocytes (%) (Auto) 10.4 0.0-12.0 % Eosinophils (%) (Auto) 0.0 0.0-7.0 % Basophils (%) (Auto) 0.0 0.0-2.0 % Neutrophils # (Auto) 10.3 H 1.6-8.6 10 ^3/uL Lymphocytes # (Auto) 0.3 L 0.4-5.4 10 ^3/uL Monocytes # (Auto) 1.2 0-1.3 10 ^3/uL Eosinophils # (Auto) 0 0-0.8 10 ^3/uL Basophils # (Auto) 0 0-0.2 10 ^3/uL Nucleated Red Blood Cells 0.0 % Sodium Level 140 # 136-145 mmol/L Potassium Level 5.4 H 3.5-5.1 mmol/L Chloride Level 111 H 98-107 mmol/L Carbon Dioxide Level 12 L 20-31 mmol/L Anion Gap 17 H 5-15 Blood Urea Nitrogen 70 H 9-23 mg/dL Creatinine 3.31 H 0.700-1.30 mg/dL Glomerular Filtration Rate Calc 17 >90 mL/min BUN/Creatinine Ratio 21.1 H 10.0-20.0 Serum Glucose 213 H 74-106 mg/dL Calcium Level 9.5 8.7-10.4 mg/dL Urine Color Light-yellow Yellow Urine Clarity Turbid H Clear Urine pH 6.5 5.0-9.0 Urine Specific [place] 1.011 1.001-1.035 Urine Protein 2+ H Negative Urine Ketones Negative Negative Urine Blood 1+ H Negative /uL Urine Nitrite 2+ H Negative Urine Bilirubin Negative Negative Urine Urobilinogen Normal Negative mg/dL Urine Leukocyte Esterase 3+ Negative /uL Urine RBC 6 0 - 3 /hpf Urine Microscopic WBC 63 H 0-3 /HPF Urine Squamous Epithelial Cells Few <5 /hpf Urine Bacteria Few H None Seen /hpf Urine Mucus Few None Seen Urine Glucose Trace Normal mg/dL Lactic Acid Level 1.9 0.4-2.0 mmol/L Test 11/14/24 22:33 11/14/24 21:05 11/14/24 17:48 Range/Units Influenza Type A Antigen Negative Negative Influenza Type B Antigen Negative Negative SARS-CoV-2 Antigen (Rapid) Negative NEGATIVE Troponin I High Sensitivity 49 </=54 ng/L Total Bilirubin 0.3 0.2-1.0 mg/dL Aspartate Amino Transferase (AST) 14 13-40 U/L Alanine Aminotransferase (ALT) 9 7-40 U/L Alkaline Phosphatase 104 46-116 U/L B-Type Natriuretic Peptide 414.14 0-100 pg/mL Total Protein 8.1 5.7-8.2 g/dL Albumin 4.7 3.2-4.8 g/dL Assessment Acute renal failure with hyperkalemia. Acute on chronic respiratory distress. CHF. Elevated troponin. Diabetes mellitus. History of CVA with left-sided deficits. Plan/Recommendation I agree with your ongoing assessment and care of plan. Telemetry reviewed. Echocardiogram. Lipitor, Plavix. Coreg. Diuretics with Lasix. Additional plan as per the hospital course. A total of 45 minutes was spent reviewing the patient record, examining the patient, making a diagnostic and therapeutic plan, discussing this plan with medical personnel, following up on diagnostic studies and following the patient for clinical stability excluding any and all procedures. At least 50% of this time was spent in direct, [id number] contact. Plan discussed with: Patient VANE KAPLAN MD Nov 15, 2024 11:42
[2024-11-15 15:38] LABS: Potassium 4.2 mmol/L (3.5-5.1); Sodium 141 mmol/L (136-145)
[2024-11-15 15:39] LABS: Anion Gap 10 (5-15); Carbon Dioxide 23 mmol/L (20-31)
[2024-11-15 15:40] LABS: Chloride 108 mmol/L (98-107)
[2024-11-15 15:44] LABS: BUN/Creatinine Ratio 21.6 (10.0-20.0); Blood Urea Nitrogen 62 mg/dL (9-23); Glucose 320 mg/dL (74-106)
--- NOTE | 2024-11-15 17:19 | DVHINCON2 ---
Date of service: Nov 15, 2024 Reason for Consultation ROSHNI History of Present Illness 89 years old male with past medical history of Congestive heart failure, hypertension, dyslipidemia, diabetes, CVA, BPH, Chronic kidney disease of MS presented with chief complaints of sob,, on my evaluation patient is altered HPI obtained from chart he is not answering any of my questions unknown exact history Past Medical History As per HPI Past Surgical History Unknown exactly Allergies: Coded Allergies: NO KNOWN ALLERGIES (Unverified , 01/11/22) Home Meds Active Scripts Furosemide (Lasix) 20 Mg Tb, 1 TAB PO BID for 30 Days, #60 TAB 1 Refill Prov:YUNIOR VALLADARES MD 04/01/23 Carvedilol (COREG) 3.125 Mg Tab, 6.25 MG PO Q12HR for 30 Days, #60 TAB Prov:ATA HANLEY MD 01/16/22 Aspirin (Aspirin Low Strength) 81 Mg Chw, 81 MG PO DAILY for 30 Days, #30 TAB.CHEW Prov:ATA HANLEY MD 01/16/22 Levothyroxine Sodium (Levothyroxine Sodium) 25 Mcg Tab, 75 MCG PO QAM for 30 Days, #90 TAB Prov:ATA HANLEY MD 01/16/22 Tamsulosin Hcl (Flomax) 0.4 Mg Cap, 0.4 MG PO QPM for 30 Days, #30 CAP Prov:ATA HANLEY MD 01/16/22 Clopidogrel Bisulfate (CLOPIDOGREL) 75 Mg Tab, 75 MG PO DAILY for 30 Days, #30 TAB Prov:ATA HANLEY MD 01/16/22 Atorvastatin Calcium (ATORVASTATIN CALCIUM) 20 Mg Tab, 10 MG PO HS for 30 Days, #15 TAB Prov:ATA HANLEY MD 01/16/22 Reported Medications Levothyroxine Sodium (Levothyroxine Sodium) 88 Mcg Tab, 75 MCG PO QAM for 30 Days, MCG 01/12/22 Tamsulosin Hcl (Tamsulosin Hcl) 0.4 Mg Cap, 0.4 MG PO BID for 30 Days, MG 01/12/22 Carvedilol (Carvedilol) 6.25 Mg Tab, 6.25 MG PO Q12HR for 30 Days, MG 01/12/22 Aspirin (ASPIRIN 81) 81 Mg Tab, 81 MG PO DAILY, TAB 4/19/22 Current Medications Current Medications Medications (Trade) Dose Ordered Sig/Alex Route PRN Reason Start Time Stop Time Status Last Admin Nitroglycerin (Ntrostat Sublingual) 0.4 mg Q5MINP PRN SL FOR CHEST PAIN 11/14/24 20:15 Morphine Sulfate 2 mg Q30M PRN IV FOR CHEST PAIN 11/14/24 20:15 Carvedilol (Coreg Tablet) 3.125 mg Q12HR PO 11/15/24 10:00 Furosemide (Lasix Injection) 20 mg BIDD IV 11/14/24 23:15 11/15/24 07:47 Atorvastatin Calcium (Lipitor) 20 mg HS PO 11/15/24 22:00 Clopidogrel Bisulfate (Plavix) 75 mg DAILY PO 11/15/24 10:00 Levothyroxine Sodium (Synthroid Tablet) 88 mcg QAM@0600 PO 11/15/24 06:00 11/15/24 07:47 Tamsulosin HCl (Flomax) 0.4 mg QPM PO 11/15/24 18:00 Diagnostic Test (Pha) (Accu-Chek Comfort Curve T) 1 strip ACHS 11/15/24 07:00 11/15/24 11:16 Insulin Human Regular (InsuLIN R) ACHS SC 11/15/24 07:00 11/15/24 11:19 Dextrose 50 ml UD PRN IV Blood Sugar LESS THAN 60 11/14/24 23:15 Ondansetron HCl (Zofran) 4 mg Q4HP PRN IV NAUSEA / VOMITING 11/14/24 23:15 Acetaminophen (Tylenol Tablet) 650 mg Q6HP PRN PO PAIN SCALE 1-3 OR TEMP>100.4 11/14/24 23:15 Azithromycin 250 ml @ 125 mls/hr DAILY@2300 IV 11/15/24 23:00 Albuterol (Ventolin Medneb) 2.5 mg Q6HPRN PRN NEB SHORTNESS OF BREATH 11/14/24 23:15 Family History: Patient reports no known family medical history. Social History Unknown exactly Review of Systems Unknown exactly H&P Exam Vital Signs/I&O Vital Sign Date Time Temp Pulse Resp B/P (MAP) Pulse Ox O2 Delivery O2 Flow Rate FiO2 11/15/24 15:18 99 20 169/87 (114) 98 11/15/24 09:48 Room Air* 0 21 11/15/24 03:00 98.1 98.1 Intake and Output 11/14/24 11/15/24 19:00 07:00 Intake Total 1300 ml Balance 1300 ml Intake IV Total 1300 ml Physical Exam General-not in any distress HEENT-normocephalic, no icterus, no pallor, neck supple Musculoskeletal-no pedal edema, no calf tenderness Genitourinary-deferred Neuro-awake not alert or oriented Psychiatric-agitated,non cooperative, Labs/Diagnostic Data Labs/Diagnostic Data Laboratory Tests Test 11/15/24 15:02 11/15/24 12:13 11/15/24 11:14 11/15/24 07:36 Range/Units Sodium Level 141 143 136-145 mmol/L Potassium Level 4.2 4.7 3.5-5.1 mmol/L Chloride Level 108 H 113 H 98-107 mmol/L Carbon Dioxide Level 23 18 L 20-31 mmol/L Anion Gap 10 12 5-15 Blood Urea Nitrogen 62 #H 73 H 9-23 mg/dL Creatinine 2.87 H 3.30 H 0.700-1.30 mg/dL Glomerular Filtration Rate Calc 20 17 >90 mL/min BUN/Creatinine Ratio 21.6 H 22.1 H 10.0-20.0 Serum Glucose 320 #H 136 H 74-106 mg/dL Calcium Level 9.0 9.4 8.7-10.4 mg/dL POC Glucose 153 H 230 H 70-106 mg/dl Test 11/15/24 03:19 11/15/24 02:20 11/14/24 23:20 11/14/24 22:33 Range/Units White Blood Count 11.8 H 4.4-10.8 10^3/uL Red Blood Count 3.45 L 4.5-5.90 10^6/uL Hemoglobin 10.6 L 13.5-17.5 g/dL Hematocrit 33.5 L 41.0-53.0 % Mean Corpuscular Volume 97.2 80.0-100.0 fL Mean Corpuscular Hemoglobin 30.9 28.0-32.0 pg Mean Corpuscular Hemoglobin Concent 31.8 L 32.0-36.0 g/dL Red Cell Distribution Width 14.6 H 11.8-14.3 % Platelet Count 215 140-450 10^3/uL Mean Platelet Volume 7.6 6.9-10.8 fL Neutrophils (%) (Auto) 87.3 H 37.0-80.0 % Lymphocytes (%) (Auto) 2.3 L 10.0-50.0 % Monocytes (%) (Auto) 10.4 0.0-12.0 % Eosinophils (%) (Auto) 0.0 0.0-7.0 % Basophils (%) (Auto) 0.0 0.0-2.0 % Neutrophils # (Auto) 10.3 H 1.6-8.6 10 ^3/uL Lymphocytes # (Auto) 0.3 L 0.4-5.4 10 ^3/uL Monocytes # (Auto) 1.2 0-1.3 10 ^3/uL Eosinophils # (Auto) 0 0-0.8 10 ^3/uL Basophils # (Auto) 0 0-0.2 10 ^3/uL Nucleated Red Blood Cells 0.0 % Sodium Level 140 # 136-145 mmol/L Potassium Level 5.4 H 3.5-5.1 mmol/L Chloride Level 111 H 98-107 mmol/L Carbon Dioxide Level 12 L 20-31 mmol/L Anion Gap 17 H 5-15 Blood Urea Nitrogen 70 H 9-23 mg/dL Creatinine 3.31 H 0.700-1.30 mg/dL Glomerular Filtration Rate Calc 17 >90 mL/min BUN/Creatinine Ratio 21.1 H 10.0-20.0 Serum Glucose 213 H 74-106 mg/dL Calcium Level 9.5 8.7-10.4 mg/dL Urine Color Light-yellow Yellow Urine Clarity Turbid H Clear Urine pH 6.5 5.0-9.0 Urine Specific [place] 1.011 1.001-1.035 Urine Protein 2+ H Negative Urine Ketones Negative Negative Urine Blood 1+ H Negative /uL Urine Nitrite 2+ H Negative Urine Bilirubin Negative Negative Urine Urobilinogen Normal Negative mg/dL Urine Leukocyte Esterase 3+ Negative /uL Urine RBC 6 0 - 3 /hpf Urine Microscopic WBC 63 H 0-3 /HPF Urine Squamous Epithelial Cells Few <5 /hpf Urine Bacteria Few H None Seen /hpf Urine Mucus Few None Seen Urine Glucose Trace Normal mg/dL Lactic Acid Level 1.9 0.4-2.0 mmol/L Influenza Type A Antigen Negative Negative Influenza Type B Antigen Negative Negative SARS-CoV-2 Antigen (Rapid) Negative NEGATIVE Test 11/14/24 21:05 11/14/24 20:26 11/14/24 18:47 11/14/24 17:48 Range/Units Troponin I High Sensitivity 49 57 *H 60 *H </=54 ng/L POC Glucose 120 H 70-106 mg/dl White Blood Count 12.2 H 4.4-10.8 10^3/uL Red Blood Count 3.80 L 4.5-5.90 10^6/uL Hemoglobin 11.9 L 13.5-17.5 g/dL Hematocrit 36.3 L 41.0-53.0 % Mean Corpuscular Volume 95.4 80.0-100.0 fL Mean Corpuscular Hemoglobin 31.3 28.0-32.0 pg Mean Corpuscular Hemoglobin Concent 32.8 32.0-36.0 g/dL Red Cell Distribution Width 14.4 H 11.8-14.3 % Platelet Count 221 140-450 10^3/uL Mean Platelet Volume 7.6 6.9-10.8 fL Neutrophils (%) (Auto) 84.6 H 37.0-80.0 % Lymphocytes (%) (Auto) 6.9 L 10.0-50.0 % Monocytes (%) (Auto) 8.4 0.0-12.0 % Eosinophils (%) (Auto) 0.0 0.0-7.0 % Basophils (%) (Auto) 0.1 0.0-2.0 % Neutrophils # (Auto) 10.3 H 1.6-8.6 10 ^3/uL Lymphocytes # (Auto) 0.8 0.4-5.4 10 ^3/uL Monocytes # (Auto) 1.0 0-1.3 10 ^3/uL Eosinophils # (Auto) 0 0-0.8 10 ^3/uL Basophils # (Auto) 0 0-0.2 10 ^3/uL Nucleated Red Blood Cells 0.0 % Sodium Level 135 L 136-145 mmol/L Potassium Level 7.1 *H 3.5-5.1 mmol/L Chloride Level 109 H 98-107 mmol/L Carbon Dioxide Level 13 L 20-31 mmol/L Anion Gap 13 5-15 Blood Urea Nitrogen 72 H 9-23 mg/dL Creatinine 3.50 H 0.700-1.30 mg/dL Glomerular Filtration Rate Calc 16 >90 mL/min BUN/Creatinine Ratio 20.6 H 10.0-20.0 Serum Glucose 120 H 74-106 mg/dL Calcium Level 9.4 8.7-10.4 mg/dL Total Bilirubin 0.3 0.2-1.0 mg/dL Aspartate Amino Transferase (AST) 14 13-40 U/L Alanine Aminotransferase (ALT) 9 7-40 U/L Alkaline Phosphatase 104 46-116 U/L B-Type Natriuretic Peptide 414.14 0-100 pg/mL Total Protein 8.1 5.7-8.2 g/dL Albumin 4.7 3.2-4.8 g/dL Assessment 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
[2024-11-15 17:37] VITALS: O2SAT 96
[2024-11-15] MEDS: TAMSULOSIN HYDROCHLORIDE 0.4 MG CAP PO SCH (17:44)
[2024-11-15 19:20] VITALS: PULSE 98; RESP 22; O2SAT 98
[2024-11-15 19:32] LABS: Protein, Urine 163.6 mg/dL (1-14)
[2024-11-15 19:35] LABS: Creatinine, Urine 72.3 mg/dL (30.0-125.0)
[2024-11-15] MEDS: ATORVASTATIN 20 MG TAB PO SCH (20:04)
--- NOTE | 2024-11-15 20:19 | DVH ---
INDICATION: carla TECHNIQUE: Multiple real-time sonographic images of the kidneys and bladder were obtained. COMPARISON: None FINDINGS: RIGHT kidney measures 9.1 cm in length. No hydronephrosis. LEFT kidney measures 8.4 cm in length. Left kidney appears atrophic. 1.3 cm nonobstructing stone in the left kidney. No hydronephrosis. Chapman catheter in the urinary bladder. IMPRESSION: Atrophic left kidney. Nonobstructing stone in the mid left kidney measures 1.3 cm.
[2024-11-15 22:27] VITALS: BP 165/67; PULSE 99; RESP 17; TEMP 98.5; O2SAT 98
[2024-11-15] MEDS: AZITHROMYCIN 500MG/ 250ML 250 ML IV SCH (23:52)
[2024-11-16] VITALS (7 sets, daily range): BP systolic 91–171; BP diastolic 53–75; PULSE 86–109; RESP 17–20; TEMP 98.3–98.8; O2SAT 91–98
--- NOTE | 2024-11-16 10:36 | DVHPN2 ---
Progress Note Date Seen: Nov 16, 2024 Medical Necessity Reason Pt with a Central, PICC or Fol: No Subjective Patient reports: No new complaints Other Systems: Patient seen and examined by myself today in follow-up Objective vital signs Vital Sign Date Time Temp Pulse Resp B/P (MAP) Pulse Ox O2 Delivery O2 Flow Rate FiO2 11/16/24 09:00 98.6 86 18 91/53 (66) 91 98.6 11/15/24 22:49 Room Air* 0 21 Total Intake and Output 11/15/24 11/15/24 11/16/24 15:00 23:00 07:00 Intake Total 300 ml 900 ml 300 ml Output Total 650 ml Balance 300 ml 900 ml -350 ml medications Current Medications Medications Dose Ordered Sig/Alex Route Start Time Stop Time Status Last Admin Dose Admin Nitroglycerin 0.4 mg Q5MINP PRN SL 11/14/24 20:15 Morphine Sulfate 2 mg Q30M PRN IV 11/14/24 20:15 Carvedilol 3.125 mg Q12HR PO 11/15/24 10:00 11/15/24 20:04 3.125 MG Furosemide 20 mg BIDD IV 11/14/24 23:15 11/16/24 05:34 20 MG Atorvastatin Calcium 20 mg HS PO 11/15/24 22:00 11/15/24 20:04 20 MG Clopidogrel Bisulfate 75 mg DAILY PO 11/15/24 10:00 Levothyroxine Sodium 88 mcg QAM@0600 PO 11/15/24 06:00 11/15/24 07:47 88 MCG Tamsulosin HCl 0.4 mg QPM PO 11/15/24 18:00 Diagnostic Test (Pha) 1 strip ACHS 11/15/24 07:00 11/16/24 06:08 1 STRIP Insulin Human Regular ACHS SC 11/15/24 07:00 11/15/24 21:48 3 UNITS Dextrose 50 ml UD PRN IV 11/14/24 23:15 Ondansetron HCl 4 mg Q4HP PRN IV 11/14/24 23:15 Acetaminophen 650 mg Q6HP PRN PO 11/14/24 23:15 Azithromycin 250 ml @ 125 mls/hr DAILY@2300 IV 11/15/24 23:00 Albuterol 2.5 mg Q6HPRN PRN NEB 11/14/24 23:15 Cancel Examination: LUNGS:Normal, CVS:Normal, MSK:Normal laboratory and microbiology Laboratory Tests 11/15/24 03:19 Test 11/16/24 10:00 Range/Units Serum Glucose Pending Problem List/Assessment/Plan Problem List/Assessment/Plan Acute kidney injury superimposed Chronic Kidney Disease secondary hemodynamic mediated Congestive heart failure exacerbation, ejection fraction 10% NSTEMI Acute hypoxic respiratory failure Hyperkalemia, resolved Metabolic acidosis Encephalopathy Morbid obesity Recommendations Kidney function is improving Increased urine output Strict I&Os I agree with diuresis Renal diet Cardiology consult We will continue to follow up Plan discussed with: Patient INGE LOPEZ MD Nov 16, 2024 10:36
[2024-11-16 10:53] LABS: Anion Gap 16 (5-15); Carbon Dioxide 18 mmol/L (20-31); Chloride 105 mmol/L (98-107); Potassium 4.6 mmol/L (3.5-5.1); Sodium 139 mmol/L (136-145)
[2024-11-16 10:54] LABS: Calcium 9.5 mg/dL (8.7-10.4)
[2024-11-16 10:59] LABS: BUN/Creatinine Ratio 20.5 (10.0-20.0)
[2024-11-16 11:02] LABS: Blood Urea Nitrogen 63 mg/dL (9-23); Glucose 145 mg/dL (74-106)
--- NOTE | 2024-11-16 16:49 | DVH ---
EXAM: CT Head Without Intravenous Contrast CLINICAL INDICATION: CONFUSION TECHNIQUE: Axial computed tomography images of the head/brain without intravenous contrast. This CT exam was performed using one or more of the following dose reduction techniques: automated exposure control, adjustment of the mA and/or kV according to patient size, and/or use of iterative reconstru ction technique. CONTRAST: COMPARISON: HEAD WITHOUT CONTRAST on DOS: 01/11/22 FINDINGS: BRAIN AND EXTRA-AXIAL SPACES: The cerebral and cerebellar sulci are prominent consistent with brain atrophy. Areas of decreased attenuation in the deep cerebral white matter are consistent with small vessel ischemic/degenerative changes. No acute intracranial hemorrhage, midline shift or mass effec t. If symptoms persist, further evaluation with MRI is recommended. BONES/JOINTS: Unremarkable. No acute fracture. SOFT TISSUES: Unremarkable. SINUSES: Unremarkable as visualized. No acute sinusitis. MASTOID AIR CELLS: Unremarkable as visualized. No mastoid effusion. OTHER FINDINGS: . IMPRESSION: 1. Generalized brain atrophy. 2. Small vessel ischemic/degenerative changes. 3. No acute intracranial hemorrhage, midline shift or mass effect. If symptoms persist, further eval uation with MRI is recommended.
--- NOTE | 2024-11-16 17:42 | DVHPN2 ---
Progress Note - Dictate Date Seen: Nov 16, 2024 Medical Necessity Reason Pt with a Central, PICC or Fol: No Subjective Patient was seen and evaluated in follow up. Sitter at bedside. Overnight, the patient became confused and combative. Patient was kicking and hitting hospital staff. Patient is refusing all care/interventions. 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 Renal US shows atrophic left kidney, nonobstructing stone in the mid left kidney measures 1.3 cm. Telemetry reviewed. vital signs Vital Sign Date Time Temp Pulse Resp B/P (MAP) Pulse Ox O2 Delivery O2 Flow Rate FiO2 11/16/24 09:00 98.6 86 18 91/53 (66) 91 98.6 11/15/24 22:49 Room Air* 0 21 Total Intake and Output 11/15/24 11/15/24 11/16/24 15:00 23:00 07:00 Intake Total 300 ml 900 ml 300 ml Output Total 650 ml Balance 300 ml 900 ml -350 ml medications Current Medications Medications Dose Ordered Sig/Alex Route Start Time Stop Time Status Last Admin Dose Admin Nitroglycerin 0.4 mg Q5MINP PRN SL 11/14/24 20:15 Morphine Sulfate 2 mg Q30M PRN IV 11/14/24 20:15 Carvedilol 3.125 mg Q12HR PO 11/15/24 10:00 11/15/24 20:04 3.125 MG Furosemide 20 mg BIDD IV 11/14/24 23:15 11/16/24 05:34 20 MG Atorvastatin Calcium 20 mg HS PO 11/15/24 22:00 11/15/24 20:04 20 MG Clopidogrel Bisulfate 75 mg DAILY PO 11/15/24 10:00 Levothyroxine Sodium 88 mcg QAM@0600 PO 11/15/24 06:00 11/15/24 07:47 88 MCG Tamsulosin HCl 0.4 mg QPM PO 11/15/24 18:00 Diagnostic Test (Pha) 1 strip ACHS 11/15/24 07:00 11/16/24 06:08 1 STRIP Insulin Human Regular ACHS SC 11/15/24 07:00 11/15/24 21:48 3 UNITS Dextrose 50 ml UD PRN IV 11/14/24 23:15 Ondansetron HCl 4 mg Q4HP PRN IV 11/14/24 23:15 Acetaminophen 650 mg Q6HP PRN PO 11/14/24 23:15 Azithromycin 250 ml @ 125 mls/hr DAILY@2300 IV 11/15/24 23:00 Albuterol 2.5 mg Q6HPRN PRN NEB 11/14/24 23:15 Cancel objective GENERAL: Awake, alert, oriented. LUNGS: Decreased breath sounds. CARDIOVASCULAR: Heart sounds are good. ABDOMEN: Soft. laboratory and microbiology Laboratory Tests 11/16/24 10:00 11/15/24 03:19 Test 11/16/24 10:00 Range/Units Serum Glucose 145 #H 74-106 mg/dL Problem List Acute renal failure with hyperkalemia. Acute on chronic respiratory distress. CHF. Elevated troponin. Diabetes mellitus. History of CVA with left-sided deficits. Assessment/Plan Continued all current supportive medical care. Echocardiogram. Lipitor, Plavix. Coreg. Diuretics with Lasix. Additional plan as per the hospital course. Plan discussed with: Patient VANE KAPLAN MD Nov 16, 2024 11:08
[2024-11-16] MEDS: QUEtiapine FUMARATE 25 MG TAB PO PRN (21:05)
[2024-11-17 01:00] VITALS: BP 124/62; PULSE 94; RESP 18; TEMP 98.7; O2SAT 97
[2024-11-17 05:00] VITALS: BP 131/72; PULSE 117; TEMP 98.5; O2SAT 94
[2024-11-17 08:00] VITALS: PULSE 94
--- NOTE | 2024-11-17 10:22 | DVHPN2 ---
Progress Note Date Seen: Nov 17, 2024 Medical Necessity Reason Pt with a Central, PICC or Fol: No Subjective Patient reports: No new complaints Other Systems: Patient seen and examined by myself today in follow-up Objective vital signs Vital Sign Date Time Temp Pulse Resp B/P (MAP) Pulse Ox O2 Delivery O2 Flow Rate FiO2 11/17/24 05:52 131/72 11/17/24 05:00 98.5 117 94 98.5 11/17/24 01:00 18 11/16/24 20:00 Room Air* 0 21 Total Intake and Output 11/16/24 11/16/24 11/17/24 15:00 23:00 07:00 Intake Total 1410 ml 450 ml Output Total 1025 ml 700 ml Balance 385 ml -250 ml medications Current Medications Medications Dose Ordered Sig/Alex Route Start Time Stop Time Status Last Admin Dose Admin Nitroglycerin 0.4 mg Q5MINP PRN SL 11/14/24 20:15 Morphine Sulfate 2 mg Q30M PRN IV 11/14/24 20:15 Carvedilol 3.125 mg Q12HR PO 11/15/24 10:00 11/16/24 21:06 3.125 MG Furosemide 20 mg BIDD IV 11/14/24 23:15 11/17/24 05:52 20 MG Atorvastatin Calcium 20 mg HS PO 11/15/24 22:00 11/16/24 21:05 20 MG Clopidogrel Bisulfate 75 mg DAILY PO 11/15/24 10:00 11/16/24 12:16 75 MG Levothyroxine Sodium 88 mcg QAM@0600 PO 11/15/24 06:00 11/15/24 07:47 88 MCG Tamsulosin HCl 0.4 mg QPM PO 11/15/24 18:00 Diagnostic Test (Pha) 1 strip ACHS 11/15/24 07:00 11/17/24 07:00 1 STRIP Insulin Human Regular ACHS SC 11/15/24 07:00 11/16/24 21:10 3 UNITS Dextrose 50 ml UD PRN IV 11/14/24 23:15 Ondansetron HCl 4 mg Q4HP PRN IV 11/14/24 23:15 Acetaminophen 650 mg Q6HP PRN PO 11/14/24 23:15 Azithromycin 250 ml @ 125 mls/hr DAILY@2300 IV 11/15/24 23:00 Albuterol 2.5 mg Q6HPRN PRN NEB 11/14/24 23:15 Cancel Quetiapine Fumarate 25 mg BID PRN PO 11/16/24 16:00 11/16/24 21:05 25 MG Haloperidol Lactate 2 mg Q4HR PRN IM 11/17/24 08:45 Examination: LUNGS:Normal, CVS:Normal, MSK:Normal laboratory and microbiology Laboratory Tests 11/16/24 10:00 11/15/24 03:19 Test 11/16/24 10:00 Range/Units Serum Glucose 145 #H 74-106 mg/dL Problem List/Assessment/Plan Problem List/Assessment/Plan Acute kidney injury superimposed Chronic Kidney Disease secondary hemodynamic mediated Congestive heart failure exacerbation, ejection fraction 10% NSTEMI Acute hypoxic respiratory failure Hyperkalemia, resolved Metabolic acidosis Encephalopathy Morbid obesity Recommendations Kidney function is improving Increased urine output Strict I&Os I agree with diuresis Renal diet Cardiology consult We will continue to follow up Plan discussed with: Patient INGE LOPEZ MD Nov 17, 2024 10:22
--- NOTE | 2024-11-17 12:37 | DVHPN2 ---
Progress Note - Dictate Date Seen: Nov 17, 2024 Medical Necessity Reason Pt with a Central, PICC or Fol: No Subjective Patient was seen and evaluated in follow up. Sitter at bedside. Per sitter and nurse, patient continues to be combative and aggressive. Patient attempts to hit and kick staff. Patient is also refusing medications. CT head shows generalized brain atrophy, small vessel ischemic/degenerative changes. No acute intracranial hemorrhage, midline shift or mass effect. Telemetry reviewed. vital signs Vital Sign Date Time Temp Pulse Resp B/P (MAP) Pulse Ox O2 Delivery O2 Flow Rate FiO2 11/17/24 05:52 131/72 11/17/24 05:00 98.5 117 94 98.5 11/17/24 01:00 18 11/16/24 20:00 Room Air* 0 21 Total Intake and Output 11/16/24 11/16/24 11/17/24 15:00 23:00 07:00 Intake Total 1410 ml 450 ml Output Total 1025 ml 700 ml Balance 385 ml -250 ml medications Current Medications Medications Dose Ordered Sig/Alex Route Start Time Stop Time Status Last Admin Dose Admin Nitroglycerin 0.4 mg Q5MINP PRN SL 11/14/24 20:15 Morphine Sulfate 2 mg Q30M PRN IV 11/14/24 20:15 Carvedilol 3.125 mg Q12HR PO 11/15/24 10:00 11/16/24 21:06 3.125 MG Furosemide 20 mg BIDD IV 11/14/24 23:15 11/17/24 05:52 20 MG Atorvastatin Calcium 20 mg HS PO 11/15/24 22:00 11/16/24 21:05 20 MG Clopidogrel Bisulfate 75 mg DAILY PO 11/15/24 10:00 11/16/24 12:16 75 MG Levothyroxine Sodium 88 mcg QAM@0600 PO 11/15/24 06:00 11/15/24 07:47 88 MCG Tamsulosin HCl 0.4 mg QPM PO 11/15/24 18:00 Diagnostic Test (Pha) 1 strip ACHS 11/15/24 07:00 11/17/24 07:00 1 STRIP Insulin Human Regular ACHS SC 11/15/24 07:00 11/16/24 21:10 3 UNITS Dextrose 50 ml UD PRN IV 11/14/24 23:15 Ondansetron HCl 4 mg Q4HP PRN IV 11/14/24 23:15 Acetaminophen 650 mg Q6HP PRN PO 11/14/24 23:15 Azithromycin 250 ml @ 125 mls/hr DAILY@2300 IV 11/15/24 23:00 Albuterol 2.5 mg Q6HPRN PRN NEB 11/14/24 23:15 Cancel Quetiapine Fumarate 25 mg BID PRN PO 11/16/24 16:00 11/16/24 21:05 25 MG Haloperidol Lactate 2 mg Q4HR PRN IM 11/17/24 08:45 objective GENERAL: Awake, alert, oriented. LUNGS: Decreased breath sounds. CARDIOVASCULAR: Heart sounds are good. ABDOMEN: Soft. laboratory and microbiology Laboratory Tests 11/16/24 10:00 11/15/24 03:19 Test 11/16/24 10:00 Range/Units Serum Glucose 145 #H 74-106 mg/dL Problem List Acute renal failure with hyperkalemia. Acute on chronic respiratory distress. CHF. Elevated troponin. Diabetes mellitus. History of CVA with left-sided deficits. Assessment/Plan Continued all current supportive medical care. Echocardiogram. Lipitor, Plavix. Coreg. Diuretics with Lasix. Additional plan as per the hospital course. Plan discussed with: Patient VANE KAPLAN MD Nov 17, 2024 11:39
[2024-11-17 15:25] LABS: Anion Gap 15 (5-15); Carbon Dioxide 21 mmol/L (20-31); Chloride 105 mmol/L (98-107); Potassium 4.6 mmol/L (3.5-5.1); Sodium 141 mmol/L (136-145)
[2024-11-17 15:27] LABS: Calcium 9.7 mg/dL (8.7-10.4)
[2024-11-17 15:31] LABS: Glucose 96 mg/dL (74-106)
[2024-11-17 15:32] LABS: BUN/Creatinine Ratio 22.6 (10.0-20.0)
[2024-11-17 15:33] LABS: Blood Urea Nitrogen 79 mg/dL (9-23)
[2024-11-17 17:00] VITALS: BP 163/76; PULSE 118; RESP 18; TEMP 98; O2SAT 96
[2024-11-17] MEDS: ACETAMINOPHEN 325 MG TAB PO PRN (17:41)
[2024-11-17 20:00] VITALS: PULSE 87; PULSE 92; RESP 17; O2SAT 94
[2024-11-17 21:00] VITALS: BP 111/53; PULSE 87; RESP 17; TEMP 97.9; O2SAT 94
[2024-11-18] VITALS (8 sets, daily range): BP systolic 113–147; BP diastolic 54–94; PULSE 81–101; RESP 17–19; TEMP 97.1–99; O2SAT 91–98
--- NOTE | 2024-11-18 06:38 | BSKYNEURO ---
[place] [facility] Note # Demographics Consult Type: General Neurology Patient Location: Inpatient First Name: Anthony Last Name: Kashmir Date of : 1935 Age: 89 Gender: Male Facility: [facility] Time of Initial Page (): 11/18/2024 05:36 Time of Return Call (): 11/18/2024 05:37 # HPI Chief Complaint: - altered mental state History: 89 yo M with hx of stroke with residual L hemiparesis p/w SOB and flu like symptoms. He was found to have CHF and ROSHNI. During admission, patient is agitated, confused, combative and intermittently refused medications. # Exam Mental Status: - lethargic - confused - disoriented to place - disoriented to time Language: - normal speech - no aphasia - no dysarthria Cranial Nerves: - extra ocular movements intact - no facial droop - normal facial sensation Motor: Did not follow commands, moving R side spontaneously, some movement on the L side, less brisk than R # ROS Unable to obtain ROS: - altered mentation # PMH-FH-SH Past Medical History: - congestive heart failure - Diabetes - hyperlipidemia - hypertension - stroke # Data Head CT: - no bleed # Assessment Impression: - Altered Mental Status, likely metabolic encephalopathy 2/2 uremia, inpatient delirium, respiratory distress # Plan Labs: - Ammonia - B12 - TSH Imaging: (urgency: routine): If AMS persists, consider MRI brain w/o Medication: Cont home statin and Plavix Cont Seroquel 25 BID, can increase to TID if remain agitated, monitor QTc Other: - If patient has any neurological deterioration please call me back immediately - telemetry monitoring - Correct underlying metabolic derangement - Delirium precaution # Logistics Attestation of consult completion: The patient is located at: [facility]. Facility staff participated in the visit. I performed this telemedicine visit from my offsite office utilizing interactive 2 way audio and visual telecommunication technology. Total time spent in telemedicine encounter: I spent 21 minutes reviewing clinical data and/or imaging, obtaining history, examining the patient, communicating with the onsite care team, and in preparation of this report. # Demographics First Name: Anthony Last Name: Kashmir Facility: [facility] Electronically signed at 11/18/2024 06:37 () by Tomy Colon MD Yes TOMY COLON MD Nov 18, 2024 06:38
--- NOTE | 2024-11-18 11:07 | DVHPN2 ---
Progress Note Date Seen: Nov 18, 2024 Medical Necessity Reason Pt with a Central, PICC or Fol: No Subjective Patient reports: No new complaints Other Systems: Patient seen and examined by myself today in follow-up Objective vital signs Vital Sign Date Time Temp Pulse Resp B/P (MAP) Pulse Ox O2 Delivery O2 Flow Rate FiO2 11/18/24 09:00 97.4 96 19 147/73 (97) 98 97.4 11/17/24 20:00 Room Air* 0 21 Total Intake and Output 11/17/24 11/17/24 11/18/24 15:00 23:00 07:00 Intake Total 600 ml 950 ml Output Total 500 ml 300 ml Balance 100 ml 650 ml medications Current Medications Medications Dose Ordered Sig/Alex Route Start Time Stop Time Status Last Admin Dose Admin Nitroglycerin 0.4 mg Q5MINP PRN SL 11/14/24 20:15 Morphine Sulfate 2 mg Q30M PRN IV 11/14/24 20:15 Carvedilol 3.125 mg Q12HR PO 11/15/24 10:00 11/17/24 21:02 3.125 MG Furosemide 20 mg BIDD IV 11/14/24 23:15 11/17/24 17:41 20 MG Atorvastatin Calcium 20 mg HS PO 11/15/24 22:00 11/17/24 21:02 20 MG Clopidogrel Bisulfate 75 mg DAILY PO 11/15/24 10:00 11/16/24 12:16 75 MG Levothyroxine Sodium 88 mcg QAM@0600 PO 11/15/24 06:00 11/18/24 06:13 88 MCG Tamsulosin HCl 0.4 mg QPM PO 11/15/24 18:00 11/17/24 17:41 0.4 MG Diagnostic Test (Pha) 1 strip ACHS 11/15/24 07:00 11/18/24 06:34 1 STRIP Insulin Human Regular ACHS SC 11/15/24 07:00 11/17/24 21:08 4 UNITS Dextrose 50 ml UD PRN IV 11/14/24 23:15 Ondansetron HCl 4 mg Q4HP PRN IV 11/14/24 23:15 Acetaminophen 650 mg Q6HP PRN PO 11/14/24 23:15 11/17/24 17:41 650 MG Azithromycin 250 ml @ 125 mls/hr DAILY@2300 IV 11/15/24 23:00 11/17/24 22:54 125 MLS/HR Albuterol 2.5 mg Q6HPRN PRN NEB 11/14/24 23:15 Cancel Quetiapine Fumarate 25 mg BID PRN PO 11/16/24 16:00 11/17/24 17:42 25 MG Haloperidol Lactate 2 mg Q4HR PRN IM 11/17/24 08:45 Examination: LUNGS:Normal, CVS:Normal, MSK:Normal laboratory and microbiology Laboratory Tests 11/17/24 14:29 11/15/24 03:19 Test 11/17/24 14:29 Range/Units Serum Glucose 96 74-106 mg/dL Problem List/Assessment/Plan Problem List/Assessment/Plan Acute kidney injury superimposed Chronic Kidney Disease stage IV secondary hemodynamic mediated Congestive heart failure exacerbation, ejection fraction 10% NSTEMI Acute hypoxic respiratory failure Hyperkalemia, resolved Metabolic acidosis Encephalopathy Morbid obesity Recommendations Kidney function stable stage IV Increased urine output Strict I&Os I agree with diuresis Renal diet Cardiology consult We will continue to follow up Plan discussed with: Patient Dietary Evaluation Review Comments: 1. Continue current diet regime 2. Consider Glucerna BID (440kcal, 20g pro) if pt is agreeable Expected Outcomes/Goals: 1. Pt will meet >75% of estimated needs within 3-5 days INGE LOPEZ MD Nov 18, 2024 11:07
--- NOTE | 2024-11-18 13:31 | DVHPN2 ---
Progress Note - Dictate Date Seen: Nov 18, 2024 Medical Necessity Reason Pt with a Central, PICC or Fol: No Subjective Patient was seen and evaluated in follow up. No overnight events. Sitter at bedside. Patient is oriented to self. He does not follow commands. Telemetry reviewed. vital signs Vital Sign Date Time Temp Pulse Resp B/P (MAP) Pulse Ox O2 Delivery O2 Flow Rate FiO2 11/18/24 11:22 98.3 11/18/24 11:21 96 147/73 11/18/24 09:00 19 98 11/17/24 20:00 Room Air* 0 21 Total Intake and Output 11/17/24 11/17/24 11/18/24 15:00 23:00 07:00 Intake Total 600 ml 950 ml Output Total 500 ml 300 ml Balance 100 ml 650 ml medications Current Medications Medications Dose Ordered Sig/Alex Route Start Time Stop Time Status Last Admin Dose Admin Nitroglycerin 0.4 mg Q5MINP PRN SL 11/14/24 20:15 Morphine Sulfate 2 mg Q30M PRN IV 11/14/24 20:15 Carvedilol 3.125 mg Q12HR PO 11/15/24 10:00 11/18/24 11:21 3.125 MG Furosemide 20 mg BIDD IV 11/14/24 23:15 11/17/24 17:41 20 MG Atorvastatin Calcium 20 mg HS PO 11/15/24 22:00 11/17/24 21:02 20 MG Clopidogrel Bisulfate 75 mg DAILY PO 11/15/24 10:00 11/18/24 11:22 75 MG Levothyroxine Sodium 88 mcg QAM@0600 PO 11/15/24 06:00 11/18/24 06:13 88 MCG Tamsulosin HCl 0.4 mg QPM PO 11/15/24 18:00 11/17/24 17:41 0.4 MG Diagnostic Test (Pha) 1 strip ACHS 11/15/24 07:00 11/18/24 11:35 1 STRIP Insulin Human Regular ACHS SC 11/15/24 07:00 11/18/24 11:36 3 UNITS Dextrose 50 ml UD PRN IV 11/14/24 23:15 Ondansetron HCl 4 mg Q4HP PRN IV 11/14/24 23:15 Acetaminophen 650 mg Q6HP PRN PO 11/14/24 23:15 2/23/25 11:22 650 MG Azithromycin 250 ml @ 125 mls/hr DAILY@2300 IV 11/15/24 23:00 11/17/24 22:54 125 MLS/HR Albuterol 2.5 mg Q6HPRN PRN NEB 11/14/24 23:15 Cancel Quetiapine Fumarate 25 mg BID PRN PO 11/16/24 16:00 11/17/24 17:42 25 MG Haloperidol Lactate 2 mg Q4HR PRN IM 11/17/24 08:45 objective GENERAL: Awake, confused. LUNGS: Decreased breath sounds. CARDIOVASCULAR: Heart sounds are good. ABDOMEN: Soft. laboratory and microbiology Laboratory Tests 11/17/24 14:29 11/15/24 03:19 Test 11/17/24 14:29 Range/Units Serum Glucose 96 74-106 mg/dL Problem List Acute renal failure with hyperkalemia. Acute on chronic respiratory distress. CHF. Elevated troponin. Diabetes mellitus. History of CVA with left-sided deficits. Assessment/Plan Continued all current supportive medical care. Lipitor, Plavix. IV antibiotics as ordered. Coreg. Diuretics with Lasix. Additional plan as per the hospital course. Dietary Evaluation Review Comments: 1. Continue current diet regime 2. Consider Glucerna BID (440kcal, 20g pro) if pt is agreeable Expected Outcomes/Goals: 1. Pt will meet >75% of estimated needs within 3-5 days Plan discussed with: Other VANE KAPLAN MD Nov 18, 2024 12:58
[2024-11-18 13:55] LABS: Chloride 101 mmol/L (98-107); Potassium 4.2 mmol/L (3.5-5.1)
[2024-11-18 13:56] LABS: Anion Gap 11 (5-15); Calcium 8.8 mg/dL (8.7-10.4); Carbon Dioxide 20 mmol/L (20-31)
[2024-11-18 13:59] LABS: Sodium 132 mmol/L (136-145)
[2024-11-18 14:02] LABS: Blood Urea Nitrogen 69 mg/dL (9-23); Glucose 232 mg/dL (74-106)
--- NOTE | 2024-11-18 23:44 | DVHSR ---
APPROVED REPORT EXAM: Two-dimensional and M-mode echocardiogram with Doppler and color Doppler. Blood Pressure: 135/80 mmHg INDICATION ef Surgery/Intervention Valve Replacement: Type: MV RISK FACTORS Height: 5'5, Weight: 132 DIMENSIONS LVDd5.2 (3.8-5.7cm)LA (2D)3.0 (1.9-4.0cm)Aortic Root3.3 (2.0-3.7cm) LVDs4.9 (2.5-4.0cm)LA (MM) (1.9-4.0cm)Aortic Cusp Exc0.7 (1.5-2.0cm) EF (%) 10.0 (55-70%)Rt. Atrium3.2 (1.9-4.0cm)Asc. Aorta cm IVSd0.9 (0.7-1.1cm)RV (D)4.4 (1.8-2.4cm) PWd0.9 (0.7-1.1cm) Mitral Valve MitralMitral Stenosis E wave1.39m/sMV Mean GR.mmHg A wave1.29m/sMV Peak GR.mmHg E/A ratio1.12D MVAcm2 DECEL [id number] 1/2 Timems Aortic Valve Aortic ValveAortic Stenosis V10.76m/Loulou Mean GR.15mmHg V22.43m/Loulou Peak GR.24mmHg LVOT Diameter2.2 (1.8-2.4cm)Doppler AVA1.19cm2 Tricuspid Valve TR Velocity3.20m/s Other Information Quality : Technically Difficult studyRhythm : Technically limited study due to PT altered and moving. Conclusion MODERATELY DILATED LV MODERATE DEGREE GLOBAL LV HYPOKINESIS LV EF IN RANGE OF ONLY 25% BIO-PROSTHETIC MV APPEAR NORMAL HEAVILY CALCIFIED AORTIC LEAFLETS AORTIC VALVE AREA IS 1.19 CM SQUARE MODERATE DEGREE AORTIC STENOSIS MODERATELY DILATED LA AND RV AND RA NO EFFUSION
[2024-11-19] VITALS (8 sets, daily range): BP systolic 101–145; BP diastolic 37–123; PULSE 70–118; RESP 17–20; TEMP 97.5–99.6; O2SAT 92–96
--- NOTE | 2024-11-19 13:25 | DVHPN2 ---
Progress Note Date Seen: Nov 19, 2024 Medical Necessity Reason Pt with a Central, PICC or Fol: Yes The following are medically ne: Chapman Catheter Objective vital signs Vital Sign Date Time Temp Pulse Resp B/P (MAP) Pulse Ox O2 Delivery O2 Flow Rate FiO2 11/19/24 10:14 96 138/103 11/19/24 08:00 17 95 Room Air* 0 21 11/19/24 05:00 98.7 98.7 Total Intake and Output 11/18/24 11/18/24 11/19/24 15:00 23:00 07:00 Intake Total 200 ml 450 ml Output Total 450 ml 450 ml Balance -250 ml 0 ml medications Current Medications Medications Dose Ordered Sig/Alex Route Start Time Stop Time Status Last Admin Dose Admin Nitroglycerin 0.4 mg Q5MINP PRN SL 11/14/24 20:15 Morphine Sulfate 2 mg Q30M PRN IV 11/14/24 20:15 Carvedilol 3.125 mg Q12HR PO 11/15/24 10:00 11/19/24 10:14 3.125 MG Furosemide 20 mg BIDD IV 11/14/24 23:15 11/19/24 05:45 20 MG Atorvastatin Calcium 20 mg HS PO 11/15/24 22:00 11/18/24 20:23 20 MG Clopidogrel Bisulfate 75 mg DAILY PO 11/15/24 10:00 11/19/24 10:14 75 MG Levothyroxine Sodium 88 mcg QAM@0600 PO 11/15/24 06:00 11/19/24 05:45 88 MCG Tamsulosin HCl 0.4 mg QPM PO 11/15/24 18:00 11/18/24 17:37 0.4 MG Diagnostic Test (Pha) 1 strip ACHS 11/15/24 07:00 11/19/24 06:34 1 STRIP Insulin Human Regular ACHS SC 11/15/24 07:00 11/18/24 20:32 4 UNITS Dextrose 50 ml UD PRN IV 11/14/24 23:15 Ondansetron HCl 4 mg Q4HP PRN IV 11/14/24 23:15 Acetaminophen 650 mg Q6HP PRN PO 11/14/24 23:15 11/18/24 11:22 650 MG Azithromycin 250 ml @ 125 mls/hr DAILY@2300 IV 11/15/24 23:00 2/23/25 23:08 125 MLS/HR Albuterol 2.5 mg Q6HPRN PRN NEB 11/14/24 23:15 Cancel Quetiapine Fumarate 25 mg BID PRN PO 11/16/24 16:00 11/17/24 17:42 25 MG Haloperidol Lactate 2 mg Q4HR PRN IM 11/17/24 08:45 Examination: GENERAL:Abnormal, CVS:Abnormal, ABDOMEN:Abnormal laboratory and microbiology Laboratory Tests 11/18/24 13:13 11/15/24 03:19 Test 11/18/24 13:13 Range/Units Serum Glucose 232 #H 74-106 mg/dL Problem List/Assessment/Plan Problem List/Assessment/Plan Acute kidney injury superimposed Chronic Kidney Disease stage IV secondary hemodynamic mediated Congestive heart failure exacerbation, ejection fraction 10% NSTEMI Acute hypoxic respiratory failure Metabolic acidosis Encephalopathy Morbid obesity Increased urine output Strict I&Os I agree with diuresis goal to achieve neg balance daily Renal diet Cardiology consult Plan discussed with: Patient Dietary Evaluation Review Comments: 1. Continue current diet regime 2. Consider Glucerna BID (440kcal, 20g pro) if pt is agreeable Expected Outcomes/Goals: 1. Pt will meet >75% of estimated needs within 3-5 days LELO MCKEON MD Nov 19, 2024 13:25
[2024-11-19 15:12] LABS: Potassium 4.5 mmol/L (3.5-5.1)
[2024-11-19 15:13] LABS: Anion Gap 13 (5-15); Carbon Dioxide 21 mmol/L (20-31)
[2024-11-19 15:32] LABS: Calcium 8.4 mg/dL (8.7-10.4); Chloride 98 mmol/L (98-107); Glucose 180 mg/dL (74-106); Sodium 132 mmol/L (136-145)
[2024-11-19 15:34] LABS: Blood Urea Nitrogen 88 mg/dL (9-23)
--- NOTE | 2024-11-19 22:38 | DVHPN2 ---
Progress Note - Dictate Date Seen: Nov 19, 2024 Medical Necessity Reason Pt with a Central, PICC or Fol: Yes The following are medically ne: Chapman Catheter Subjective Patient was seen and evaluated in follow up. Patient continues to refuse medication. When medication is given with applesauce patient spits the pills out. 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 Telemetry reviewed. vital signs Vital Sign Date Time Temp Pulse Resp B/P (MAP) Pulse Ox O2 Delivery O2 Flow Rate FiO2 11/19/24 21:00 98.4 94 18 137/70 (92) 96 98.4 98 141/74 (96) 11/19/24 08:00 Room Air* 0 21 Total Intake and Output 11/18/24 11/18/24 11/19/24 15:00 23:00 07:00 Intake Total 200 ml 450 ml Output Total 450 ml 450 ml Balance -250 ml 0 ml medications Current Medications Medications Dose Ordered Sig/Alex Route Start Time Stop Time Status Last Admin Dose Admin Nitroglycerin 0.4 mg Q5MINP PRN SL 11/14/24 20:15 Morphine Sulfate 2 mg Q30M PRN IV 11/14/24 20:15 Carvedilol 3.125 mg Q12HR PO 11/15/24 10:00 11/19/24 10:14 3.125 MG Furosemide 20 mg BIDD IV 11/14/24 23:15 11/19/24 18:32 20 MG Atorvastatin Calcium 20 mg HS PO 11/15/24 22:00 11/18/24 20:23 20 MG Clopidogrel Bisulfate 75 mg DAILY PO 11/15/24 10:00 11/19/24 10:14 75 MG Levothyroxine Sodium 88 mcg QAM@0600 PO 11/15/24 06:00 11/19/24 05:45 88 MCG Tamsulosin HCl 0.4 mg QPM PO 11/15/24 18:00 11/18/24 17:37 0.4 MG Diagnostic Test (Pha) 1 strip ACHS 11/15/24 07:00 11/19/24 20:52 1 STRIP Insulin Human Regular ACHS SC 11/15/24 07:00 11/19/24 20:53 3 UNITS Dextrose 50 ml UD PRN IV 11/14/24 23:15 Ondansetron HCl 4 mg Q4HP PRN IV 11/14/24 23:15 Acetaminophen 650 mg Q6HP PRN PO 11/14/24 23:15 11/19/24 16:29 650 MG Azithromycin 250 ml @ 125 mls/hr DAILY@2300 IV 11/15/24 23:00 11/18/24 23:08 125 MLS/HR Albuterol 2.5 mg Q6HPRN PRN NEB 11/14/24 23:15 Cancel Quetiapine Fumarate 25 mg BID PRN PO 11/16/24 16:00 11/17/24 17:42 25 MG Haloperidol Lactate 2 mg Q4HR PRN IM 11/17/24 08:45 objective GENERAL: Awake, confused. LUNGS: Decreased breath sounds. CARDIOVASCULAR: Heart sounds are good. ABDOMEN: Soft. laboratory and microbiology Laboratory Tests 11/19/24 14:18 11/15/24 03:19 Test 11/19/24 14:18 Range/Units Serum Glucose 180 H 74-106 mg/dL Problem List Acute renal failure with hyperkalemia. Acute on chronic respiratory distress. CHF. Elevated troponin. Diabetes mellitus. History of CVA with left-sided deficits. Assessment/Plan Continued all current supportive medical care. Lipitor, Plavix. IV antibiotics as ordered. Coreg. Diuretics with Lasix. Additional plan as per the hospital course. Dietary Evaluation Review Comments: 1. Continue current diet regime 2. Consider Glucerna BID (440kcal, 20g pro) if pt is agreeable Expected Outcomes/Goals: 1. Pt will meet >75% of estimated needs within 3-5 days Plan discussed with: Other VANE KAPLAN MD Nov 19, 2024 22:38
[2024-11-20] VITALS (8 sets, daily range): BP systolic 103–151; BP diastolic 61–75; PULSE 62–131; RESP 16–18; TEMP 97.3–99.4; O2SAT 95–96
--- NOTE | 2024-11-20 12:43 | DVHPN2 ---
Progress Note Date Seen: Nov 20, 2024 Medical Necessity Reason Pt with a Central, PICC or Fol: Yes The following are medically ne: Chapman Catheter Objective vital signs Vital Sign Date Time Temp Pulse Resp B/P (MAP) Pulse Ox O2 Delivery O2 Flow Rate FiO2 11/20/24 12:04 106 151/69 11/20/24 08:51 99.1 18 95 99.1 11/19/24 20:00 Room Air* 0 21 Total Intake and Output 11/19/24 11/19/24 11/20/24 15:00 23:00 07:00 Intake Total 440 ml 470 ml Output Total 200 ml 350 ml Balance 240 ml 120 ml medications Current Medications Medications Dose Ordered Sig/Alex Route Start Time Stop Time Status Last Admin Dose Admin Nitroglycerin 0.4 mg Q5MINP PRN SL 11/14/24 20:15 Morphine Sulfate 2 mg Q30M PRN IV 11/14/24 20:15 Carvedilol 3.125 mg Q12HR PO 11/15/24 10:00 11/20/24 12:04 3.125 MG Furosemide 20 mg BIDD IV 11/14/24 23:15 11/20/24 06:25 20 MG Atorvastatin Calcium 20 mg HS PO 11/15/24 22:00 11/19/24 21:36 20 MG Clopidogrel Bisulfate 75 mg DAILY PO 11/15/24 10:00 11/20/24 12:03 75 MG Levothyroxine Sodium 88 mcg QAM@0600 PO 11/15/24 06:00 11/19/24 05:45 88 MCG Tamsulosin HCl 0.4 mg QPM PO 11/15/24 18:00 11/18/24 17:37 0.4 MG Diagnostic Test (Pha) 1 strip ACHS 11/15/24 07:00 11/20/24 11:30 1 STRIP Insulin Human Regular ACHS SC 11/15/24 07:00 11/20/24 12:11 2 UNITS Dextrose 50 ml UD PRN IV 11/14/24 23:15 Ondansetron HCl 4 mg Q4HP PRN IV 11/14/24 23:15 Acetaminophen 650 mg Q6HP PRN PO 11/14/24 23:15 11/19/24 16:29 650 MG Azithromycin 250 ml @ 125 mls/hr DAILY@2300 IV 11/15/24 23:00 11/19/24 23:06 125 MLS/HR Albuterol 2.5 mg Q6HPRN PRN NEB 11/14/24 23:15 Cancel Quetiapine Fumarate 25 mg BID PRN PO 11/16/24 16:00 11/17/24 17:42 25 MG Haloperidol Lactate 2 mg Q4HR PRN IM 11/17/24 08:45 Examination: GENERAL:Abnormal, CVS:Abnormal laboratory and microbiology Laboratory Tests 11/19/24 14:18 11/15/24 03:19 Test 11/19/24 14:18 Range/Units Serum Glucose 180 H 74-106 mg/dL Problem List/Assessment/Plan Problem List/Assessment/Plan Acute kidney injury superimposed Chronic Kidney Disease stage IV secondary hemodynamic mediated Congestive heart failure exacerbation, ejection fraction 10% NSTEMI Acute hypoxic respiratory failure Metabolic acidosis Encephalopathy Morbid obesity Increased urine output Strict I&Os I agree with diuresis goal to achieve neg balance daily, dose reduction today Renal diet Cardiology consult Plan discussed with: Patient My Orders My Orders Orders - LELO MCKEON MD Procedure Category Date Status Time Basic Metabolic Panel LAB 11/20/24 Verified 12:42 Dietary Evaluation Review Comments: 1. Continue current diet regime 2. Consider Glucerna BID (440kcal, 20g pro) if pt is agreeable Expected Outcomes/Goals: 1. Pt will meet >75% of estimated needs within 3-5 days LELO MCKEON MD Nov 20, 2024 12:43
[2024-11-20 13:42] LABS: Potassium 3.9 mmol/L (3.5-5.1)
[2024-11-20 13:43] LABS: Anion Gap 12 (5-15); Carbon Dioxide 23 mmol/L (20-31)
[2024-11-20 13:44] LABS: Calcium 9.1 mg/dL (8.7-10.4)
[2024-11-20 13:48] LABS: BUN/Creatinine Ratio 27.9 (10.0-20.0)
[2024-11-20 14:31] LABS: Chloride 97 mmol/L (98-107); Glucose 135 mg/dL (74-106); Sodium 132 mmol/L (136-145)
[2024-11-20 14:36] LABS: Blood Urea Nitrogen 88 mg/dL (9-23)
--- NOTE | 2024-11-20 14:56 | CONS ---
Pharmacy Clinical Information: From Heart Failure Fallout Report on CQM Application, Anthony Marlow is a 89 year old male with PMH of [place], CHF, HTN, Dyslipidemia, DM, CVA, BPH. His home medications for heart failure include carvedilol, lisinopril, and furosemide. His inpatient medications include carvedilol and furosemide. ACEi/ARB/ARNi, MRA, and SGLT2i not recommended at this time due to ROSHNI. XI PAK PHARMACIST Nov 20, 2024 14:56
--- NOTE | 2024-11-20 19:44 | DVHPN2 ---
Progress Note - Dictate Date Seen: Nov 20, 2024 Medical Necessity Reason Pt with a Central, PICC or Fol: Yes The following are medically ne: Chapman Catheter Subjective Patient was seen and evaluated in follow up. No overnight events. Sitter is at bedside. Patient is awake and alert to self. CL 97, BUN 88, Dehairer 3.15. BS are WNL. Telemetry reviewed. vital signs Vital Sign Date Time Temp Pulse Resp B/P (MAP) Pulse Ox O2 Delivery O2 Flow Rate FiO2 11/20/24 17:27 103/69 11/20/24 17:00 99.4 105 18 95 99.4 11/20/24 08:00 Room Air* 0 21 Total Intake and Output 11/19/24 11/19/24 11/20/24 15:00 23:00 07:00 Intake Total 440 ml 470 ml Output Total 200 ml 350 ml Balance 240 ml 120 ml medications Current Medications Medications Dose Ordered Sig/Alex Route Start Time Stop Time Status Last Admin Dose Admin Nitroglycerin 0.4 mg Q5MINP PRN SL 11/14/24 20:15 Morphine Sulfate 2 mg Q30M PRN IV 11/14/24 20:15 Carvedilol 3.125 mg Q12HR PO 11/15/24 10:00 11/20/24 12:04 3.125 MG Furosemide 20 mg BIDD IV 11/14/24 23:15 11/20/24 17:27 20 MG Atorvastatin Calcium 20 mg HS PO 11/15/24 22:00 11/19/24 21:36 20 MG Clopidogrel Bisulfate 75 mg DAILY PO 11/15/24 10:00 11/20/24 12:03 75 MG Levothyroxine Sodium 88 mcg QAM@0600 PO 11/15/24 06:00 11/19/24 05:45 88 MCG Tamsulosin HCl 0.4 mg QPM PO 11/15/24 18:00 11/20/24 17:27 0.4 MG Diagnostic Test (Pha) 1 strip ACHS 11/15/24 07:00 11/20/24 16:30 1 STRIP Insulin Human Regular ACHS SC 11/15/24 07:00 11/20/24 12:11 2 UNITS Dextrose 50 ml UD PRN IV 11/14/24 23:15 Ondansetron HCl 4 mg Q4HP PRN IV 11/14/24 23:15 Acetaminophen 650 mg Q6HP PRN PO 11/14/24 23:15 11/19/24 16:29 650 MG Azithromycin 250 ml @ 125 mls/hr DAILY@2300 IV 11/15/24 23:00 11/19/24 23:06 125 MLS/HR Albuterol 2.5 mg Q6HPRN PRN NEB 11/14/24 23:15 Cancel Quetiapine Fumarate 25 mg BID PRN PO 11/16/24 16:00 11/17/24 17:42 25 MG Haloperidol Lactate 2 mg Q4HR PRN IM 11/17/24 08:45 objective GENERAL: Awake, confused. LUNGS: Decreased breath sounds. CARDIOVASCULAR: Heart sounds are good. ABDOMEN: Soft. laboratory and microbiology Laboratory Tests 11/20/24 13:10 11/15/24 03:19 Test 11/20/24 13:10 Range/Units Serum Glucose 135 H 74-106 mg/dL Problem List Acute renal failure with hyperkalemia. Acute on chronic respiratory distress. CHF. Elevated troponin. Diabetes mellitus. History of CVA with left-sided deficits. Assessment/Plan Continued all current supportive medical care. Lipitor, Plavix. IV antibiotics as ordered. Coreg. Diuretics with Lasix. Additional plan as per the hospital course. Dietary Evaluation Review Comments: 1. Continue current diet regime 2. Consider Glucerna BID (440kcal, 20g pro) if pt is agreeable Expected Outcomes/Goals: 1. Pt will meet >75% of estimated needs within 3-5 days Plan discussed with: Other VANE KAPLAN MD Nov 20, 2024 19:44
--- NOTE | 2024-11-20 20:54 | DVHINCON2 ---
Date of service: Nov 20, [address] Guerrier Reason for Consultation ALOC History of Present Illness Mr. Marlow is a 89 years old gentleman with a history of hypertension, diabetes, dyslipidemia, hypothyroidism, coronary artery disease, he was brought to the hospital on 11/14/2024 for ALOC. At this time, he is awake, but is only oriented to himself. The history is obtained from his daughter, chart review I saw him on 01/13/2022 for stroke (MRI positive) According to his daughter, the patient is normally with good memory and normal mentation, but since a few days prior to this admission, the patient developed confusion, dizziness, low appetite, nausea, vomiting, he also had general weakness, not able to stand up before he came to the hospital. In the hospital, the patient was confirmed to have mental status change, he was also has evidence of urinary tract infection, metabolic acidosis, kidney failure - Urinalysis, 11/15/2024: WBC: 63, urine leukocyte esterase: 3+, urine nitrate: 2+ -WBC/Hb/PLT/MCV, 11/15/2024: 11.8/10.6/215/97.2 K 11/14/2024: 7.1, 11/15/2019 5:5.4, 11/15/2024: 4.7 HCO3, 11/14/2024: 13, 11/15/2024: 12., 11/16/2024: 18 BUN/CR, 11/14/2024: 72/3.5, 11/15/2024: 62/2.87, : 88/3.26 TSH, 01/13/2022: 1.66 Liver function test, 11/13/2024: Unremarkable TG/CHOL/LDL/HDL, 12/2021: 150/199/79/99 Echocardiogram, 01/05/2022: EF 25 to 30% Carotid angio, 01/14/2022: NOW WITH 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 OCCLUDED LEFT COMMON CAROTID CT head, 11/16/2024: 1. Generalized brain atrophy. 2. Small vessel ischemic/degenerative changes. 3. No acute intracranial hemorrhage, midline shift or mass effect. If symptoms persist, further evaluation with MRI is recommended. MRI brain, 01/13/2022: 1. An apparent punctate focus of restricted diffusion at the middle left frontal lobe (S6, image 31) which may reflect an acute/subacute ischemia. 2. Scatter chronic ischemic small vessel disease changes. 3. Bilateral mastoid air cell opacifications Past Medical History Hypertension, diabetes, dyslipidemia, hypothyroidism, coronary artery disease, heart attack, glucoma, blindness. Left carotid occlusion, Past Surgical History CABG, right ICA stent, eye surgery Family History: Patient reports no known family medical history. Family History Hypertension Social History He was a tobacco smoker, he was an alcohol abuser, no history of drug abuse Allergies: Coded Allergies: NO KNOWN ALLERGIES (Unverified , 01/11/22) Home Meds Reported Medications Lisinopril (Lisinopril) 20 Mg Tab, 1 TAB PO DAILY for 90 Days, #90 11/15/24 Furosemide (Furosemide) 20 Mg Tab, 1 TAB PO DAILY for 30 Days, #60 11/15/24 Carvedilol (Carvedilol) 3.125 Mg Tab, 1 TAB PO BID for 30 Days, #60 11/15/24 Review of Systems As above, the other system negative Vital Signs Vital Signs Date Time Temp Pulse Resp B/P (MAP) Pulse Ox O2 Delivery O2 Flow Rate FiO2 11/20/24 17:27 103/69 11/20/24 17:00 99.4 105 18 95 99.4 11/20/24 08:00 Room Air* 0 21 Physical Exam GENERAL EXAM: General: the patient is well developed and nourished. No acute distress. HEENT: Normocephalic, neck is supple, no carotid bruits. No mass. RESPIRATORY: Normal respiratory effort with symmetrical lung expansion. Lungs clear to auscultation. CARDIOVASCULAR: Regular rate and rhythm with no murmurs. S1, S2. ABDOMEN: Soft, nontender, normal bowel sound A lot of pain in the left upper extremity from the shoulder to the wrist NEUROLOGICAL: MENTAL STATUS: Awake, only oriented to himself SPEECH, LANGUAGE, HIGHER CORTICAL FUNCTION: no aphasia or dysathria. CRANIAL NERVES: #2: Intact visual gallagher to confrontation. #3,4,6: Left eye is cloudy, he has right surgical pupil. EOMs full and conjugate. #5: Facial sensation intact in all three divisions bilaterally. Mandibular strength intact. #7: Facial muscles symmetrical and strength intact. #8: Hearing grossly normal to voice. #9,10: Uvula and soft palate rise in the midline. Swallow and voice are normal. #11: Trapezius and sternomastoid strength intact bilaterally. #12: Tongue midline. No fasciculations or atrophy. SENSATION: Sensation to touch and pinprick is fine MOTOR: Normal tone in the upper and lower extremity. Normal muscle bulk. No fasciculations. No abnormal movements or posturing. He can move all extremities, but only moves the left arm a little bit (local pain) REFLEXES: Deep tendon reflexes are symmetrical. No pathological reflexes. CEREBELLAR/COORDINATION: Deferred GAIT/STATION: deferred Labs/Diagnostic Data Labs Test 11/20/24 16:25 11/20/24 13:10 11/15/24 03:19 11/15/24 02:20 Range/Units POC Glucose 106 70-106 mg/dl Sodium Level 132 L 136-145 mmol/L Potassium Level 3.9 3.5-5.1 mmol/L Chloride Level 97 L 98-107 mmol/L Carbon Dioxide Level 23 20-31 mmol/L Anion Gap 12 5-15 Blood Urea Nitrogen 88 *H 9-23 mg/dL Creatinine 3.15 H 0.700-1.30 mg/dL Glomerular Filtration Rate Calc 18 >90 mL/min BUN/Creatinine Ratio 27.9 H 10.0-20.0 Serum Glucose 135 H 74-106 mg/dL Calcium Level 9.1 8.7-10.4 mg/dL White Blood Count 11.8 H 4.4-10.8 10^3/uL Red Blood Count 3.45 L 4.5-5.90 10^6/uL Hemoglobin 10.6 L 13.5-17.5 g/dL Hematocrit 33.5 L 41.0-53.0 % Mean Corpuscular Volume 97.2 80.0-100.0 fL Mean Corpuscular Hemoglobin 30.9 28.0-32.0 pg Mean Corpuscular Hemoglobin Concent 31.8 L 32.0-36.0 g/dL Red Cell Distribution Width 14.6 H 11.8-14.3 % Platelet Count 215 140-450 10^3/uL Mean Platelet Volume 7.6 6.9-10.8 fL Neutrophils (%) (Auto) 87.3 H 37.0-80.0 % Lymphocytes (%) (Auto) 2.3 L 10.0-50.0 % Monocytes (%) (Auto) 10.4 0.0-12.0 % Eosinophils (%) (Auto) 0.0 0.0-7.0 % Basophils (%) (Auto) 0.0 0.0-2.0 % Neutrophils # (Auto) 10.3 H 1.6-8.6 10 ^3/uL Lymphocytes # (Auto) 0.3 L 0.4-5.4 10 ^3/uL Monocytes # (Auto) 1.2 0-1.3 10 ^3/uL Eosinophils # (Auto) 0 0-0.8 10 ^3/uL Basophils # (Auto) 0 0-0.2 10 ^3/uL Nucleated Red Blood Cells 0.0 % Urine Color Light-yellow Yellow Urine Clarity Turbid H Clear Urine pH 6.5 5.0-9.0 Urine Specific [place] 1.011 1.001-1.035 Urine Protein 2+ H Negative Urine Ketones Negative Negative Urine Blood 1+ H Negative /uL Urine Nitrite 2+ H Negative Urine Bilirubin Negative Negative Urine Urobilinogen Normal Negative mg/dL Urine Leukocyte Esterase 3+ Negative /uL Urine RBC 6 0 - 3 /hpf Urine Microscopic WBC 63 H 0-3 /HPF Urine Squamous Epithelial Cells Few <5 /hpf Urine Bacteria Few H None Seen /hpf Urine Mucus Few None Seen Urine Creatinine 72.30 30.0-125.0 mg/dL Urine Sodium 63 40-220 mmol/L Urine Glucose Trace Normal mg/dL Urine Total Protein 163.6 H 1-14 mg/dL Test 11/14/24 23:20 11/14/24 22:33 11/14/24 21:05 11/14/24 17:48 Range/Units Lactic Acid Level 1.9 0.4-2.0 mmol/L Influenza Type A Antigen Negative Negative Influenza Type B Antigen Negative Negative SARS-CoV-2 Antigen (Rapid) Negative NEGATIVE Troponin I High Sensitivity 49 </=54 ng/L Total Bilirubin 0.3 0.2-1.0 mg/dL Aspartate Amino Transferase (AST) 14 13-40 U/L Alanine Aminotransferase (ALT) 9 7-40 U/L Alkaline Phosphatase 104 46-116 U/L B-Type Natriuretic Peptide 414.14 0-100 pg/mL Total Protein 8.1 5.7-8.2 g/dL Albumin 4.7 3.2-4.8 g/dL Assessment Altered mental status Acute metabolic encephalopathy Metabolic acidosis Urinary tract infection ? Sepsis Chronic stroke Carotid stenosis Kidney failure Hyperkalemia Plan/Recommendation Monitoring Supportive treatment Telemetry Follow-up lab EEG Lipid profile IV antibiotics Aspirin 81 mg daily Lipitor 20 mg daily Clopidogrel 75 mg daily Haldol 2 mg intramuscular p.r.n. for agitation Cardiology on case Nephrology on case More recommendation per clinical course Prognosis: Poor This medical document was created using an electronic medical record system with [employer] dictation system. Although this document has been carefully reviewed, there may still be some phonetic and typographical errors. These areas are purely typographical due to imperfections of the software programs, and do not reflect any compromise in the patient's medical care. Plan discussed with: Daughter, Other CYNDIE HUMPHREYS MD Nov 20, 2024 20:54
[2024-11-20 22:34] LABS: Triglycerides 106 mg/dL (< 150)
[2024-11-20 22:35] LABS: LDL Cholesterol 34 mg/dL (< 100)
[2024-11-20 22:36] LABS: Cholesterol 95 mg/dL (< 200)
[2024-11-20 22:43] LABS: HDL Cholesterol 35 mg/dL (40-59)
[2024-11-21] VITALS (7 sets, daily range): BP systolic 103–139; BP diastolic 53–66; PULSE 79–92; RESP 16–19; TEMP 97.5–98.4; O2SAT 94–96
[2024-11-21] MEDS: HALOPERIDOL LACTATE 5 MG/ML INJ VIAL IM PRN (02:09)
[2024-11-21 06:21] LABS: Potassium 3.9 mmol/L (3.5-5.1)
[2024-11-21 06:22] LABS: Anion Gap 13 (5-15); Calcium 9.1 mg/dL (8.7-10.4); Carbon Dioxide 21 mmol/L (20-31)
[2024-11-21 06:29] LABS: Chloride 98 mmol/L (98-107); Glucose 154 mg/dL (74-106); Sodium 132 mmol/L (136-145)
[2024-11-21 06:31] LABS: Blood Urea Nitrogen 91 mg/dL (9-23)
--- NOTE | 2024-11-21 09:11 | DVH ---
EXAM: XY L WRIST 2 VIEW XRAY CLINICAL INDICATION: pain TECHNIQUE: XY L WRIST 2 VIEW XRAY Comparison: None FINDINGS/IMPRESSION: There is no evidence of acute fracture or dislocation. The visualized joint space is well maintained. The alignment is anatomical. There is no radiopaque foreign body.
--- NOTE | 2024-11-21 09:11 | DVH ---
EXAM: XY L SHOULDER 2+ VIEW XRAY CLINICAL INDICATION: pain TECHNIQUE: XY L SHOULDER 2+ VIEW XRAY Comparison: None FINDINGS/IMPRESSION: There is no evidence of acute fracture or dislocation. The visualized joint space is well maintained. The alignment is anatomical. There is no radiopaque foreign body.
[2024-11-21] MEDS ORDERED: TAMS-35 PO (13:52)
[2024-11-21] MEDS ORDERED: CARV-214 PO (13:52)
[2024-11-21] MEDS ORDERED: CLOP75TA70 PO (13:52)
[2024-11-21] MEDS ORDERED: QUET1TAB11 PO (13:52)
[2024-11-21] MEDS ORDERED: ATOR20TA50 PO (13:52)
[2024-11-21] MEDS ORDERED: LEVO-177 PO (13:52)
--- NOTE | 2024-11-21 13:59 | DVHDS2 ---
Discharge Summary Date of Admission Nov 14, 2024 at 20:11 Date of Discharge: Nov 21, 2024 Admitting Diagnosis NOTE REPLACED Labs/Diagnostic Data: Laboratory Results Test 11/21/24 11:56 11/21/24 05:23 11/20/24 13:10 11/15/24 03:19 POC Glucose 156 mg/dl (70-106) Sodium Level 132 mmol/L (136-145) Potassium Level 3.9 mmol/L (3.5-5.1) Chloride Level 98 mmol/L (98-107) Carbon Dioxide Level 21 mmol/L (20-31) Anion Gap 13 (5-15) Blood Urea Nitrogen 91 mg/dL (9-23) Creatinine 3.14 mg/dL (0.700-1.30) Glomerular Filtration Rate Calc 18 mL/min (>90) BUN/Creatinine Ratio 29.0 (10.0-20.0) Serum Glucose 154 mg/dL (74-106) Calcium Level 9.1 mg/dL (8.7-10.4) Triglycerides Level 106 mg/dL (< 150) Cholesterol Level 95 mg/dL (< 200) LDL Cholesterol 34 mg/dL (< 100) HDL Cholesterol 35 mg/dL (40-59) White Blood Count 11.8 10^3/uL (4.4-10.8) Red Blood Count 3.45 10^6/uL (4.5-5.90) Hemoglobin 10.6 g/dL (13.5-17.5) Hematocrit 33.5 % (41.0-53.0) Mean Corpuscular Volume 97.2 fL (80.0-100.0) Mean Corpuscular Hemoglobin 30.9 pg (28.0-32.0) Mean Corpuscular Hemoglobin Concent 31.8 g/dL (32.0-36.0) Red Cell Distribution Width 14.6 % (11.8-14.3) Platelet Count 215 10^3/uL (140-450) Mean Platelet Volume 7.6 fL (6.9-10.8) Neutrophils (%) (Auto) 87.3 % (37.0-80.0) Lymphocytes (%) (Auto) 2.3 % (10.0-50.0) Monocytes (%) (Auto) 10.4 % (0.0-12.0) Eosinophils (%) (Auto) 0.0 % (0.0-7.0) Basophils (%) (Auto) 0.0 % (0.0-2.0) Neutrophils # (Auto) 10.3 10 ^3/uL (1.6-8.6) Lymphocytes # (Auto) 0.3 10 ^3/uL (0.4-5.4) Monocytes # (Auto) 1.2 10 ^3/uL (0-1.3) Eosinophils # (Auto) 0 10 ^3/uL (0-0.8) Basophils # (Auto) 0 10 ^3/uL (0-0.2) Nucleated Red Blood Cells 0.0 % Test 11/15/24 02:20 11/14/24 23:20 11/14/24 22:33 11/14/24 21:05 Urine Color Light-yellow (Yellow) Urine Clarity Turbid (Clear) Urine pH 6.5 (5.0-9.0) Urine Specific [place] 1.011 (1.001-1.035) Urine Protein 2+ (Negative) Urine Ketones Negative (Negative) Urine Blood 1+ /uL (Negative) Urine Nitrite 2+ (Negative) Urine Bilirubin Negative (Negative) Urine Urobilinogen Normal mg/dL (Negative) Urine Leukocyte Esterase 3+ /uL (Negative) Urine RBC 6 /hpf (0 - 3) Urine Microscopic WBC 63 /HPF (0-3) Urine Squamous Epithelial Cells Few /hpf (<5) Urine Bacteria Few /hpf (None Seen) Urine Mucus Few (None Seen) Urine Creatinine 72.30 mg/dL (30.0-125.0) Urine Sodium 63 mmol/L (40-220) Urine Glucose Trace mg/dL (Normal) Urine Total Protein 163.6 mg/dL (1-14) Lactic Acid Level 1.9 mmol/L (0.4-2.0) Influenza Type A Antigen Negative (Negative) Influenza Type B Antigen Negative (Negative) SARS-CoV-2 Antigen (Rapid) Negative (NEGATIVE) Troponin I High Sensitivity 49 ng/L (</=54) Test 11/14/24 17:48 Total Bilirubin 0.3 mg/dL (0.2-1.0) Aspartate Amino Transferase (AST) 14 U/L (13-40) Alanine Aminotransferase (ALT) 9 U/L (7-40) Alkaline Phosphatase 104 U/L (46-116) B-Type Natriuretic Peptide 414.14 pg/mL (0-100) Total Protein 8.1 g/dL (5.7-8.2) Albumin 4.7 g/dL (3.2-4.8) Other Laboratory Tests 11/21/24 05:23 11/15/24 03:19 Brief Hx & Hospital Course: DUPLICATE NOTE- REPLACED. Condition at Discharge: Stable Final Diagnosis/Problems List Dementia w/ agitation and hallucination Chronic Kidney Disease Stage 4 Congestive Heart Failure Discharge Disposition: Hospice - Home Discharge Instruct/Medications Diet: Regular Activity: See Comment Activity comment: Activity as tolerated Medications: See list Discharge Statement: "Patient was advised to return to the ER or call 911 if any headaches, dizziness, shortness of breath, chest pain, abdominal pain, bleeding, fevers, or worsening of medical condition. Patient was counseled about treatment plan, medications, possible side effects, patientverbalized understanding. All questions were answered to the best of my ability. This discharge took greater then 30 minutes in planning, reviewing documentation, counseling the patient, and discussing with other team members." ASSESSMENT ASSESSMENT Assessment Dementia w/ agitation and hallucination Chronic Kidney Disease Stage 4 Congestive Heart Failure WENDY KAPLAN DO Nov 21, 2024 13:59
--- NOTE | 2024-11-21 14:35 | DVHPN2 ---
Progress Note Date Seen: Nov 21, 2024 Medical Necessity Reason Pt with a Central, PICC or Fol: Yes The following are medically ne: Chapman Catheter Objective vital signs Vital Sign Date Time Temp Pulse Resp B/P (MAP) Pulse Ox O2 Delivery O2 Flow Rate FiO2 11/21/24 10:16 79 133/64 11/21/24 08:54 97.8 16 96 97.8 11/21/24 08:00 Room Air* 0 21 Total Intake and Output 11/20/24 11/20/24 11/21/24 15:00 23:00 07:00 Intake Total 480 ml 860 ml 650 ml Output Total 550 ml 275 ml Balance 480 ml 310 ml 375 ml medications Current Medications Medications Dose Ordered Sig/Alex Route Start Time Stop Time Status Last Admin Dose Admin Nitroglycerin 0.4 mg Q5MINP PRN SL 11/14/24 20:15 Morphine Sulfate 2 mg Q30M PRN IV 11/14/24 20:15 Carvedilol 3.125 mg Q12HR PO 11/15/24 10:00 11/21/24 10:16 3.125 MG Atorvastatin Calcium 20 mg HS PO 11/15/24 22:00 11/20/24 22:18 20 MG Clopidogrel Bisulfate 75 mg DAILY PO 11/15/24 10:00 11/21/24 10:16 75 MG Levothyroxine Sodium 88 mcg QAM@0600 PO 11/15/24 06:00 11/19/24 05:45 88 MCG Tamsulosin HCl 0.4 mg QPM PO 11/15/24 18:00 11/20/24 17:27 0.4 MG Diagnostic Test (Pha) 1 strip ACHS 11/15/24 07:00 11/21/24 11:30 1 STRIP Insulin Human Regular ACHS SC 11/15/24 07:00 11/21/24 11:30 2 UNITS Dextrose 50 ml UD PRN IV 11/14/24 23:15 Ondansetron HCl 4 mg Q4HP PRN IV 11/14/24 23:15 Acetaminophen 650 mg Q6HP PRN PO 11/14/24 23:15 11/19/24 16:29 650 MG Albuterol 2.5 mg Q6HPRN PRN NEB 11/14/24 23:15 Cancel Quetiapine Fumarate 25 mg BID PRN PO 11/16/24 16:00 11/17/24 17:42 25 MG Haloperidol Lactate 2 mg Q4HR PRN IM 11/17/24 08:45 11/21/24 02:09 2 MG Furosemide 20 mg DAILY PO 11/22/24 10:00 Examination: GENERAL:Abnormal, CVS:Abnormal, ABDOMEN:Abnormal laboratory and microbiology Laboratory Tests 11/21/24 05:23 11/15/24 03:19 Test 11/21/24 05:23 Range/Units Serum Glucose 154 H 74-106 mg/dL Problem List/Assessment/Plan Problem List/Assessment/Plan Acute kidney injury superimposed Chronic Kidney Disease stage IV secondary hemodynamic mediated Congestive heart failure exacerbation, ejection fraction 10% NSTEMI Acute hypoxic respiratory failure Metabolic acidosis Encephalopathy Morbid obesity per primary team planned for hospice. I will sign off case. Rest of care as per primary team Plan discussed with: Patient Dietary Evaluation Review Comments: 1. Continue current diet regime 2. Consider Glucerna BID (440kcal, 20g pro) if pt is agreeable Expected Outcomes/Goals: 1. Pt will meet >75% of estimated needs within 3-5 days LELO MCKEON MD Nov 21, 2024 14:35
--- NOTE | 2024-11-21 18:33 | DVHPN2 ---
Progress Note - Dictate Date Seen: Nov 21, 2024 Medical Necessity Reason Pt with a Central, PICC or Fol: Yes The following are medically ne: Chapman Catheter Subjective Patient was seen and evaluated in follow up. Sitter at patient's bedside. Patient remains A&O x1. Patient is refusing to undergo EEG. 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 Telemetry reviewed. vital signs Vital Sign Date Time Temp Pulse Resp B/P (MAP) Pulse Ox O2 Delivery O2 Flow Rate FiO2 11/21/24 10:16 79 133/64 11/21/24 08:54 97.8 16 96 97.8 11/20/24 20:00 Room Air* 0 21 Total Intake and Output 11/20/24 11/20/24 11/21/24 15:00 23:00 07:00 Intake Total 480 ml 860 ml 650 ml Output Total 550 ml 275 ml Balance 480 ml 310 ml 375 ml medications Current Medications Medications Dose Ordered Sig/Alxe Route Start Time Stop Time Status Last Admin Dose Admin Nitroglycerin 0.4 mg Q5MINP PRN SL 11/14/24 20:15 Morphine Sulfate 2 mg Q30M PRN IV 11/14/24 20:15 Carvedilol 3.125 mg Q12HR PO 11/15/24 10:00 11/21/24 10:16 3.125 MG Atorvastatin Calcium 20 mg HS PO 11/15/24 22:00 11/20/24 22:18 20 MG Clopidogrel Bisulfate 75 mg DAILY PO 11/15/24 10:00 11/21/24 10:16 75 MG Levothyroxine Sodium 88 mcg QAM@0600 PO 11/15/24 06:00 11/19/24 05:45 88 MCG Tamsulosin HCl 0.4 mg QPM PO 11/15/24 18:00 11/20/24 17:27 0.4 MG Diagnostic Test (Pha) 1 strip ACHS 11/15/24 07:00 11/21/24 06:21 1 STRIP Insulin Human Regular ACHS SC 11/15/24 07:00 11/21/24 06:29 2 UNITS Dextrose 50 ml UD PRN IV 11/14/24 23:15 Ondansetron HCl 4 mg Q4HP PRN IV 11/14/24 23:15 Acetaminophen 650 mg Q6HP PRN PO 2/19/25 23:15 11/19/24 16:29 650 MG Albuterol 2.5 mg Q6HPRN PRN NEB 11/14/24 23:15 Cancel Quetiapine Fumarate 25 mg BID PRN PO 11/16/24 16:00 11/17/24 17:42 25 MG Haloperidol Lactate 2 mg Q4HR PRN IM 11/17/24 08:45 11/21/24 02:09 2 MG objective GENERAL: Awake, confused. LUNGS: Decreased breath sounds. CARDIOVASCULAR: Heart sounds are good. ABDOMEN: Soft. laboratory and microbiology Laboratory Tests 11/21/24 05:23 11/15/24 03:19 Test 11/21/24 05:23 Range/Units Serum Glucose 154 H 74-106 mg/dL Problem List Acute renal failure with hyperkalemia. Acute on chronic respiratory distress. CHF. Elevated troponin. Diabetes mellitus. History of CVA with left-sided deficits. Assessment/Plan Continued all current supportive medical care. Lipitor, Plavix. IV antibiotics as ordered. Coreg. Diuretics with Lasix. Additional plan as per the hospital course. Dietary Evaluation Review Comments: 1. Continue current diet regime 2. Consider Glucerna BID (440kcal, 20g pro) if pt is agreeable Expected Outcomes/Goals: 1. Pt will meet >75% of estimated needs within 3-5 days Plan discussed with: VANE Lucero MD Nov 21, 2024 12:29
--- NOTE | 2024-11-21 23:00 | DVHPN2 ---
Progress Note - Dictate Date Seen: Nov 21, 2024 Medical Necessity Reason Pt with a Central, PICC or Fol: Yes The following are medically ne: Chapman Catheter Subjective Mr. Marlow is a 89 years old gentleman with a history of hypertension, diabetes, dyslipidemia, hypothyroidism, coronary artery disease, he was brought to the hospital on 11/14/2024 for ALOC. At this time, he is awake, but is only oriented to himself. The history is obtained from his daughter, chart review I saw him on 01/13/2022 for stroke (MRI positive) I have seen and examined the patient, talked to his nurse and other medical staff, he was doing fine, awake, oriented to person place only, he still reports pain in the left arm, he was reports left knee pain According to his daughter, the patient is normally with good memory and normal mentation, but since a few days prior to this admission, the patient developed confusion, dizziness, low appetite, nausea, vomiting, he also had general weakness, not able to stand up before he came to the hospital. In the hospital, the patient was confirmed to have mental status change, he was also has evidence of urinary tract infection, metabolic acidosis, kidney failure - Urinalysis, 11/15/2024: WBC: 63, urine leukocyte esterase: 3+, urine nitrate: 2+ -WBC/Hb/PLT/MCV, 11/15/2024: 11.8/10.6/215/97.2 K 11/14/2024: 7.1, 11/15/2019 5:5.4, 11/15/2024: 4.7 HCO3, 11/14/2024: 13, 11/15/2024: 12., 11/16/2024: 18 BUN/CR, 11/14/2024: 72/3.5, 11/15/2024: 62/2.87, : 88/3.26 TSH, 01/13/2022: 1.66 Liver function test, 11/13/2024: Unremarkable TG/CHOL/LDL/HDL, 12/2021: 150/199/79/99, 11/20/2024: 105/95/34/75 Echocardiogram, 01/05/2022: EF 25 to 30% Carotid angio, 01/14/2022: NOW WITH 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 OCCLUDED LEFT COMMON CAROTID X-ray, left shoulder, 11/20/2024: There is no evidence of acute fracture or dislocation. The visualized joint space is well maintained. The alignment is anatomical. There is no radiopaque foreign body. X-ray, left wrist, 11/20/2024: There is no evidence of acute fracture or dislocation. The visualized joint space is well maintained. The alignment is anatomical. There is no radiopaque foreign body. CT head, 11/16/2024: 1. Generalized brain atrophy. 2. Small vessel ischemic/degenerative changes. 3. No acute intracranial hemorrhage, midline shift or mass effect. If symptoms persist, further evaluation with MRI is recommended. MRI brain, 01/13/2022: 1. An apparent punctate focus of restricted diffusion at the middle left frontal lobe (S6, image 31) which may reflect an acute/subacute ischemia. 2. Scatter chronic ischemic small vessel disease changes. 3. Bilateral mastoid air cell opacifications vital signs Vital Sign Date Time Temp Pulse Resp B/P (MAP) Pulse Ox O2 Delivery O2 Flow Rate FiO2 11/21/24 17:00 98.4 79 18 121/63 (82) 95 98.4 11/21/24 08:00 Room Air* 0 21 Total Intake and Output 11/20/24 11/20/24 11/21/24 15:00 23:00 07:00 Intake Total 480 ml 860 ml 650 ml Output Total 550 ml 275 ml Balance 480 ml 310 ml 375 ml medications Current Medications Medications Dose Ordered Sig/Alex Route Start Time Stop Time Status Last Admin Dose Admin Nitroglycerin 0.4 mg Q5MINP PRN SL 11/14/24 20:15 Morphine Sulfate 2 mg Q30M PRN IV 11/14/24 20:15 Carvedilol 3.125 mg Q12HR PO 11/15/24 10:00 11/21/24 10:16 3.125 MG Atorvastatin Calcium 20 mg HS PO 11/15/24 22:00 11/20/24 22:18 20 MG Clopidogrel Bisulfate 75 mg DAILY PO 11/15/24 10:00 11/21/24 10:16 75 MG Levothyroxine Sodium 88 mcg QAM@0600 PO 11/15/24 06:00 11/19/24 05:45 88 MCG Tamsulosin HCl 0.4 mg QPM PO 11/15/24 18:00 11/21/24 18:00 0.4 MG Diagnostic Test (Pha) 1 strip ACHS 11/15/24 07:00 11/21/24 17:00 1 STRIP Insulin Human Regular ACHS SC 11/15/24 07:00 11/21/24 11:30 2 UNITS Dextrose 50 ml UD PRN IV 11/14/24 23:15 Ondansetron HCl 4 mg Q4HP PRN IV 11/14/24 23:15 Acetaminophen 650 mg Q6HP PRN PO 11/14/24 23:15 11/19/24 16:29 650 MG Albuterol 2.5 mg Q6HPRN PRN NEB 11/14/24 23:15 Cancel Quetiapine Fumarate 25 mg BID PRN PO 11/16/24 16:00 11/17/24 17:42 25 MG Haloperidol Lactate 2 mg Q4HR PRN IM 11/17/24 08:45 11/21/24 02:09 2 MG Furosemide 20 mg DAILY PO 11/22/24 10:00 objective General: the patient is well developed and nourished. No acute distress. A lot of pain in the left upper extremity from the shoulder to the wrist MENTAL STATUS: Awake, only oriented to himself SPEECH, LANGUAGE, HIGHER CORTICAL FUNCTION: no aphasia or dysathria. CRANIAL NERVES: Left eye is cloudy, he has right surgical pupil. EOMs full and conjugate. Facial sensation intact in all three divisions bilaterally. Mandibular strength intact. Facial muscles symmetrical and strength intact. SENSATION: Sensation to touch and pinprick is fine MOTOR: Normal tone in the upper and lower extremity. Normal muscle bulk. No fasciculations. No abnormal movements or posturing. He can move all extremities, but only moves the left arm a little bit (local pain) REFLEXES: Deep tendon reflexes are symmetrical. No pathological reflexes. CEREBELLAR/COORDINATION: Deferred GAIT/STATION: deferred laboratory and microbiology Laboratory Tests 11/21/24 05:23 11/15/24 03:19 Test 11/21/24 05:23 Range/Units Serum Glucose 154 H 74-106 mg/dL Problem List Altered mental status Acute metabolic encephalopathy Metabolic acidosis Urinary tract infection ? Sepsis Chronic stroke Carotid stenosis Kidney failure Hyperkalemia Assessment/Plan Monitoring Supportive treatment Telemetry Follow-up lab EEG IV antibiotics Aspirin 81 mg daily Lipitor 20 mg daily Clopidogrel 75 mg daily Haldol 2 mg intramuscular p.r.n. for agitation Cardiology on case Nephrology on case More recommendation per clinical course This medical document was created using an electronic medical record system with [employer] dictation system. Although this document has been carefully reviewed, there may still be some phonetic and typographical errors. These areas are purely typographical due to imperfections of the software programs, and do not reflect any compromise in the patient's medical care Prognosis poor Dietary Evaluation Review Comments: 1. Continue current diet regime 2. Consider Glucerna BID (440kcal, 20g pro) if pt is agreeable Expected Outcomes/Goals: 1. Pt will meet >75% of estimated needs within 3-5 days Plan discussed with: Other Total Time (mins): 35 CYNDIE HUMPHREYS MD Nov 21, 2024 23:00
[2024-11-22] VITALS (7 sets, daily range): BP systolic 109–138; BP diastolic 58–70; PULSE 84–94; RESP 15–18; TEMP 97.4–98.3; O2SAT 95–97
[2024-11-22 06:52] LABS: Potassium 4.2 mmol/L (3.5-5.1)
[2024-11-22 06:53] LABS: Anion Gap 15 (5-15); Calcium 8.8 mg/dL (8.7-10.4); Carbon Dioxide 19 mmol/L (20-31); Chloride 97 mmol/L (98-107); Sodium 131 mmol/L (136-145)
[2024-11-22 06:58] LABS: BUN/Creatinine Ratio 31.1 (10.0-20.0)
[2024-11-22 07:44] LABS: Glucose 115 mg/dL (74-106)
[2024-11-22 07:46] LABS: Blood Urea Nitrogen 93 mg/dL (9-23)
[2024-11-22] MEDS: FUROSEMIDE 20 MG TAB PO SCH (10:16)
--- NOTE | 2024-11-22 13:13 | DVHPN2 ---
Progress Note - Dictate Date Seen: Nov 22, 2024 Medical Necessity Reason Pt with a Central, PICC or Fol: Yes The following are medically ne: Chapman Catheter Subjective Patient was seen and evaluated in follow up. Sitter at the patients bedside. Patient mental status is unchanged, remains A&O x1. Patient pending hospice placement. BUN 93, VEGETABLE FARMER 2.99. Telemetry reviewed. vital signs Vital Sign Date Time Temp Pulse Resp B/P (MAP) Pulse Ox O2 Delivery O2 Flow Rate FiO2 11/22/24 10:17 93 135/69 11/22/24 09:00 97.4 16 96 97.4 11/21/24 20:00 Room Air* 0 21 Total Intake and Output 11/21/24 11/21/24 11/22/24 15:00 23:00 07:00 Intake Total 150 ml 400 ml Output Total 400 ml 700 ml Balance -250 ml -300 ml medications Current Medications Medications Dose Ordered Sig/Alex Route Start Time Stop Time Status Last Admin Dose Admin Nitroglycerin 0.4 mg Q5MINP PRN SL 11/14/24 20:15 Morphine Sulfate 2 mg Q30M PRN IV 11/14/24 20:15 Carvedilol 3.125 mg Q12HR PO 11/15/24 10:00 11/22/24 10:17 3.125 MG Atorvastatin Calcium 20 mg HS PO 11/15/24 22:00 11/21/24 22:59 20 MG Clopidogrel Bisulfate 75 mg DAILY PO 11/15/24 10:00 11/22/24 10:15 75 MG Levothyroxine Sodium 88 mcg QAM@0600 PO 11/15/24 06:00 11/19/24 05:45 88 MCG Tamsulosin HCl 0.4 mg QPM PO 11/15/24 18:00 11/21/24 18:00 0.4 MG Diagnostic Test (Pha) 1 strip ACHS 11/15/24 07:00 11/22/24 06:10 1 STRIP Insulin Human Regular ACHS SC 11/15/24 07:00 11/21/24 11:30 2 UNITS Dextrose 50 ml UD PRN IV 11/14/24 23:15 Ondansetron HCl 4 mg Q4HP PRN IV 11/14/24 23:15 Acetaminophen 650 mg Q6HP PRN PO 11/14/24 23:15 11/19/24 16:29 650 MG Albuterol 2.5 mg Q6HPRN PRN NEB 11/14/24 23:15 Cancel Quetiapine Fumarate 25 mg BID PRN PO 11/16/24 16:00 11/17/24 17:42 25 MG Haloperidol Lactate 2 mg Q4HR PRN IM 11/17/24 08:45 11/21/24 23:08 2 MG Furosemide 20 mg DAILY PO 11/22/24 10:00 11/22/24 10:16 20 MG objective GENERAL: Awake, confused. LUNGS: Decreased breath sounds. CARDIOVASCULAR: Heart sounds are good. ABDOMEN: Soft. laboratory and microbiology Laboratory Tests 11/22/24 05:45 11/15/24 03:19 Test 11/22/24 05:45 Range/Units Serum Glucose 115 H 74-106 mg/dL Problem List Acute renal failure with hyperkalemia. Acute on chronic respiratory distress. CHF. Elevated troponin. Diabetes mellitus. History of CVA with left-sided deficits. Assessment/Plan Continued all current supportive medical care. Lipitor, Plavix. IV antibiotics as ordered. Coreg. Diuretics with Lasix. Additional plan as per the hospital course. Dietary Evaluation Review Comments: 1. Continue current diet regime 2. Consider Glucerna BID (440kcal, 20g pro) if pt is agreeable Expected Outcomes/Goals: 1. Pt will meet >75% of estimated needs within 3-5 days Plan discussed with: Patient VANE KAPLAN MD Nov 22, 2024 11:40
--- NOTE | 2024-11-22 19:10 | DVHINCON2 ---
Date of service: Nov 16, 2024 Referring Physician NOTE REPLACED- To document for IM standpoint. Allergies: Coded Allergies: NO KNOWN ALLERGIES (Unverified , 01/11/22) Home Meds Active Scripts Tamsulosin Hcl (Flomax) 0.4 Mg Cap, 0.4 MG PO QPM for 30 Days, #30 CAP Prov:WENDY KAPLAN DO 11/21/24 Quetiapine Fumerate (QUETIAPINE FUMARATE) 25 Mg Tab, 25 MG PO BID PRN for 30 Days, #60 TAB Prov:WENDY KAPLAN DO 11/21/24 Levothyroxine Sodium (Levothyroxine Sodium) 88 Mcg Tab, 88 MCG PO QAM@0600 for 30 Days, #30 TAB Prov:WENDY KAPLAN DO 11/21/24 Clopidogrel Bisulfate (CLOPIDOGREL) 75 Mg Tab, 75 MG PO DAILY for 30 Days, #30 TAB Prov:WENDY KAPLAN DO 11/21/24 Carvedilol (COREG) 3.125 Mg Tab, 3.125 MG PO Q12HR for 30 Days, #60 TAB Prov:WENDY KAPLAN DO 11/21/24 Atorvastatin Calcium (ATORVASTATIN CALCIUM) 20 Mg Tab, 20 MG PO HS for 30 Days, #30 TAB Prov:WENDY KAPLAN DO 11/21/24 Reported Medications Lisinopril (Lisinopril) 20 Mg Tab, 1 TAB PO DAILY for 90 Days, #90 11/15/24 Furosemide (Furosemide) 20 Mg Tab, 1 TAB PO DAILY for 30 Days, #60 11/15/24 Discontinued Reported Medications Carvedilol (Carvedilol) 3.125 Mg Tab, 1 TAB PO BID for 30 Days, #60 11/15/24 Current Medications Current Medications Medications (Trade) Dose Ordered Sig/Alex Route PRN Reason Start Time Stop Time Status Last Admin Furosemide (Lasix Tablet) 20 mg DAILY PO 11/22/24 10:00 11/22/24 10:16 Family History: Patient reports no known family medical history. H&P Exam Vital Signs/I&O Vital Sign Date Time Temp Pulse Resp B/P (MAP) Pulse Ox O2 Delivery O2 Flow Rate FiO2 11/22/24 17:00 98.3 94 15 109/68 (82) 97 98.3 11/22/24 08:15 Room Air* 0 21 Intake and Output 11/21/24 11/22/24 19:00 07:00 Intake Total 150 ml 400 ml Output Total 400 ml 700 ml Balance -250 ml -300 ml Intake Oral 150 ml 400 ml Output Urine Total 400 ml 700 ml Labs/Diagnostic Data Labs/Diagnostic Data Laboratory Tests Test 11/22/24 12:30 11/22/24 05:47 11/22/24 05:45 11/21/24 21:36 Range/Units POC Glucose 188 H 114 H 112 H 70-106 mg/dl Sodium Level 131 L 136-145 mmol/L Potassium Level 4.2 3.5-5.1 mmol/L Chloride Level 97 L 98-107 mmol/L Carbon Dioxide Level 19 L 20-31 mmol/L Anion Gap 15 5-15 Blood Urea Nitrogen 93 *H 9-23 mg/dL Creatinine 2.99 H 0.700-1.30 mg/dL Glomerular Filtration Rate Calc 19 >90 mL/min BUN/Creatinine Ratio 31.1 H 10.0-20.0 Serum Glucose 115 H 74-106 mg/dL Calcium Level 8.8 8.7-10.4 mg/dL Test 11/21/24 16:58 11/21/24 11:56 11/21/24 06:05 11/21/24 05:23 Range/Units POC Glucose 116 H 156 H 146 H 70-106 mg/dl Sodium Level 132 L 136-145 mmol/L Potassium Level 3.9 3.5-5.1 mmol/L Chloride Level 98 98-107 mmol/L Carbon Dioxide Level 21 20-31 mmol/L Anion Gap 13 5-15 Blood Urea Nitrogen 91 *H 9-23 mg/dL Creatinine 3.14 H 0.700-1.30 mg/dL Glomerular Filtration Rate Calc 18 >90 mL/min BUN/Creatinine Ratio 29.0 H 10.0-20.0 Serum Glucose 154 H 74-106 mg/dL Calcium Level 9.1 8.7-10.4 mg/dL Test 11/20/24 22:17 11/20/24 16:25 11/20/24 13:10 11/20/24 12:01 Range/Units POC Glucose 139 H 106 150 H 70-106 mg/dl Sodium Level 132 L 136-145 mmol/L Potassium Level 3.9 3.5-5.1 mmol/L Chloride Level 97 L 98-107 mmol/L Carbon Dioxide Level 23 20-31 mmol/L Anion Gap 12 5-15 Blood Urea Nitrogen 88 *H 9-23 mg/dL Creatinine 3.15 H 0.700-1.30 mg/dL Glomerular Filtration Rate Calc 18 >90 mL/min BUN/Creatinine Ratio 27.9 H 10.0-20.0 Serum Glucose 135 H 74-106 mg/dL Calcium Level 9.1 8.7-10.4 mg/dL Triglycerides Level 106 < 150 mg/dL Cholesterol Level 95 < 200 mg/dL LDL Cholesterol 34 < 100 mg/dL HDL Cholesterol 35 L 40-59 mg/dL Test 11/20/24 05:42 11/19/24 20:49 11/19/24 14:18 11/19/24 05:51 Range/Units POC Glucose 168 H 200 H 100 70-106 mg/dl Sodium Level 132 L 136-145 mmol/L Potassium Level 4.5 3.5-5.1 mmol/L Chloride Level 98 98-107 mmol/L Carbon Dioxide Level 21 20-31 mmol/L Anion Gap 13 5-15 Blood Urea Nitrogen 88 #*H 9-23 mg/dL Creatinine 3.26 H 0.700-1.30 mg/dL Glomerular Filtration Rate Calc 18 >90 mL/min BUN/Creatinine Ratio 27.0 H 10.0-20.0 Serum Glucose 180 H 74-106 mg/dL Calcium Level 8.4 L 8.7-10.4 mg/dL Test 11/18/24 20:19 11/18/24 17:54 11/18/24 13:13 11/18/24 11:34 Range/Units POC Glucose 246 H 243 H 174 H 70-106 mg/dl Sodium Level 132 #L 136-145 mmol/L Potassium Level 4.2 3.5-5.1 mmol/L Chloride Level 101 98-107 mmol/L Carbon Dioxide Level 20 20-31 mmol/L Anion Gap 11 5-15 Blood Urea Nitrogen 69 #H 9-23 mg/dL Creatinine 3.14 H 0.700-1.30 mg/dL Glomerular Filtration Rate Calc 18 >90 mL/min BUN/Creatinine Ratio 22.0 H 10.0-20.0 Serum Glucose 232 #H 74-106 mg/dL Calcium Level 8.8 8.7-10.4 mg/dL Test 11/18/24 06:16 11/17/24 20:35 11/17/24 14:29 11/16/24 20:59 Range/Units POC Glucose 108 H 208 H 167 H 70-106 mg/dl Sodium Level 141 136-145 mmol/L Potassium Level 4.6 3.5-5.1 mmol/L Chloride Level 105 98-107 mmol/L Carbon Dioxide Level 21 20-31 mmol/L Anion Gap 15 5-15 Blood Urea Nitrogen 79 H 9-23 mg/dL Creatinine 3.49 H 0.700-1.30 mg/dL Glomerular Filtration Rate Calc 16 >90 mL/min BUN/Creatinine Ratio 22.6 H 10.0-20.0 Serum Glucose 96 74-106 mg/dL Calcium Level 9.7 8.7-10.4 mg/dL Test 11/16/24 16:47 11/16/24 12:20 11/16/24 10:00 11/16/24 06:05 Range/Units POC Glucose 120 H 177 H 125 H 70-106 mg/dl Sodium Level 139 136-145 mmol/L Potassium Level 4.6 3.5-5.1 mmol/L Chloride Level 105 98-107 mmol/L Carbon Dioxide Level 18 L 20-31 mmol/L Anion Gap 16 H 5-15 Blood Urea Nitrogen 63 H 9-23 mg/dL Creatinine 3.07 H 0.700-1.30 mg/dL Glomerular Filtration Rate Calc 19 >90 mL/min BUN/Creatinine Ratio 20.5 H 10.0-20.0 Serum Glucose 145 #H 74-106 mg/dL Calcium Level 9.5 8.7-10.4 mg/dL Test 11/15/24 21:40 11/15/24 17:41 11/15/24 15:02 11/15/24 12:13 Range/Units POC Glucose 184 H 127 H 70-106 mg/dl Sodium Level 141 143 136-145 mmol/L Potassium Level 4.2 4.7 3.5-5.1 mmol/L Chloride Level 108 H 113 H 98-107 mmol/L Carbon Dioxide Level 23 18 L 20-31 mmol/L Anion Gap 10 12 5-15 Blood Urea Nitrogen 62 #H 73 H 9-23 mg/dL Creatinine 2.87 H 3.30 H 0.700-1.30 mg/dL Glomerular Filtration Rate Calc 20 17 >90 mL/min BUN/Creatinine Ratio 21.6 H 22.1 H 10.0-20.0 Serum Glucose 320 #H 136 H 74-106 mg/dL Calcium Level 9.0 9.4 8.7-10.4 mg/dL Test 11/15/24 11:14 11/15/24 07:36 11/15/24 03:19 11/15/24 02:20 Range/Units POC Glucose 153 H 230 H 70-106 mg/dl White Blood Count 11.8 H 4.4-10.8 10^3/uL Red Blood Count 3.45 L 4.5-5.90 10^6/uL Hemoglobin 10.6 L 13.5-17.5 g/dL Hematocrit 33.5 L 41.0-53.0 % Mean Corpuscular Volume 97.2 80.0-100.0 fL Mean Corpuscular Hemoglobin 30.9 28.0-32.0 pg Mean Corpuscular Hemoglobin Concent 31.8 L 32.0-36.0 g/dL Red Cell Distribution Width 14.6 H 11.8-14.3 % Platelet Count 215 140-450 10^3/uL Mean Platelet Volume 7.6 6.9-10.8 fL Neutrophils (%) (Auto) 87.3 H 37.0-80.0 % Lymphocytes (%) (Auto) 2.3 L 10.0-50.0 % Monocytes (%) (Auto) 10.4 0.0-12.0 % Eosinophils (%) (Auto) 0.0 0.0-7.0 % Basophils (%) (Auto) 0.0 0.0-2.0 % Neutrophils # (Auto) 10.3 H 1.6-8.6 10 ^3/uL Lymphocytes # (Auto) 0.3 L 0.4-5.4 10 ^3/uL Monocytes # (Auto) 1.2 0-1.3 10 ^3/uL Eosinophils # (Auto) 0 0-0.8 10 ^3/uL Basophils # (Auto) 0 0-0.2 10 ^3/uL Nucleated Red Blood Cells 0.0 % Sodium Level 140 # 136-145 mmol/L Potassium Level 5.4 H 3.5-5.1 mmol/L Chloride Level 111 H 98-107 mmol/L Carbon Dioxide Level 12 L 20-31 mmol/L Anion Gap 17 H 5-15 Blood Urea Nitrogen 70 H 9-23 mg/dL Creatinine 3.31 H 0.700-1.30 mg/dL Glomerular Filtration Rate Calc 17 >90 mL/min BUN/Creatinine Ratio 21.1 H 10.0-20.0 Serum Glucose 213 H 74-106 mg/dL Calcium Level 9.5 8.7-10.4 mg/dL Urine Color Light-yellow Yellow Urine Clarity Turbid H Clear Urine pH 6.5 5.0-9.0 Urine Specific [place] 1.011 1.001-1.035 Urine Protein 2+ H Negative Urine Ketones Negative Negative Urine Blood 1+ H Negative /uL Urine Nitrite 2+ H Negative Urine Bilirubin Negative Negative Urine Urobilinogen Normal Negative mg/dL Urine Leukocyte Esterase 3+ Negative /uL Urine RBC 6 0 - 3 /hpf Urine Microscopic WBC 63 H 0-3 /HPF Urine Squamous Epithelial Cells Few <5 /hpf Urine Bacteria Few H None Seen /hpf Urine Mucus Few None Seen Urine Creatinine 72.30 30.0-125.0 mg/dL Urine Sodium 63 40-220 mmol/L Urine Glucose Trace Normal mg/dL Urine Total Protein 163.6 H 1-14 mg/dL Test 11/14/24 23:20 11/14/24 22:33 11/14/24 21:05 11/14/24 20:26 Range/Units Lactic Acid Level 1.9 0.4-2.0 mmol/L Influenza Type A Antigen Negative Negative Influenza Type B Antigen Negative Negative SARS-CoV-2 Antigen (Rapid) Negative NEGATIVE Troponin I High Sensitivity 49 </=54 ng/L POC Glucose 120 H 70-106 mg/dl Test 11/14/24 18:47 11/14/24 17:48 Range/Units Troponin I High Sensitivity 57 *H 60 *H </=54 ng/L White Blood Count 12.2 H 4.4-10.8 10^3/uL Red Blood Count 3.80 L 4.5-5.90 10^6/uL Hemoglobin 11.9 L 13.5-17.5 g/dL Hematocrit 36.3 L 41.0-53.0 % Mean Corpuscular Volume 95.4 80.0-100.0 fL Mean Corpuscular Hemoglobin 31.3 28.0-32.0 pg Mean Corpuscular Hemoglobin Concent 32.8 32.0-36.0 g/dL Red Cell Distribution Width 14.4 H 11.8-14.3 % Platelet Count 221 140-450 10^3/uL Mean Platelet Volume 7.6 6.9-10.8 fL Neutrophils (%) (Auto) 84.6 H 37.0-80.0 % Lymphocytes (%) (Auto) 6.9 L 10.0-50.0 % Monocytes (%) (Auto) 8.4 0.0-12.0 % Eosinophils (%) (Auto) 0.0 0.0-7.0 % Basophils (%) (Auto) 0.1 0.0-2.0 % Neutrophils # (Auto) 10.3 H 1.6-8.6 10 ^3/uL Lymphocytes # (Auto) 0.8 0.4-5.4 10 ^3/uL Monocytes # (Auto) 1.0 0-1.3 10 ^3/uL Eosinophils # (Auto) 0 0-0.8 10 ^3/uL Basophils # (Auto) 0 0-0.2 10 ^3/uL Nucleated Red Blood Cells 0.0 % Sodium Level 135 L 136-145 mmol/L Potassium Level 7.1 *H 3.5-5.1 mmol/L Chloride Level 109 H 98-107 mmol/L Carbon Dioxide Level 13 L 20-31 mmol/L Anion Gap 13 5-15 Blood Urea Nitrogen 72 H 9-23 mg/dL Creatinine 3.50 H 0.700-1.30 mg/dL Glomerular Filtration Rate Calc 16 >90 mL/min BUN/Creatinine Ratio 20.6 H 10.0-20.0 Serum Glucose 120 H 74-106 mg/dL Calcium Level 9.4 8.7-10.4 mg/dL Total Bilirubin 0.3 0.2-1.0 mg/dL Aspartate Amino Transferase (AST) 14 13-40 U/L Alanine Aminotransferase (ALT) 9 7-40 U/L Alkaline Phosphatase 104 46-116 U/L B-Type Natriuretic Peptide 414.14 0-100 pg/mL Total Protein 8.1 5.7-8.2 g/dL Albumin 4.7 3.2-4.8 g/dL WENDY KAPLAN DO Nov 22, 2024 19:10
--- NOTE | 2024-11-22 19:12 | DVHINCON2 ---
Date of service: Nov 16, [address] Starr Reason for Consultation Medical management History of Present Illness Anthony Marlow is a 89-year-old male with a Past Medical History pertinent for Hypertension, Diabetes, CVA, High Lipids, DE and BPH who presented to the hospital with complaints of flu-like symptoms x 2 days. Patient also endorses associated nausea and vomiting x 1 day. Patient states he developed mild chest pain s/s to his productive cough. While in ED, labs were remarkable for WBC 12.2, K 7.1. Troponin 60 with repeat at 57. BNP 414. Chest x-ray reported mild pulmonary vascular congestion. Viral respiratory swabs were negative. Patient was also found to have UTI, metabolic acidosis, kidney failure and ALOC. Per patient's daughter, patient is normally with good memory and mentation. Family History: Patient reports no known family medical history. Allergies: Coded Allergies: NO KNOWN ALLERGIES (Unverified , 01/11/22) Home Meds Active Scripts Tamsulosin Hcl (Flomax) 0.4 Mg Cap, 0.4 MG PO QPM for 30 Days, #30 CAP Prov:WENDY KAPLAN DO 11/21/24 Quetiapine Fumerate (QUETIAPINE FUMARATE) 25 Mg Tab, 25 MG PO BID PRN for 30 Days, #60 TAB Prov:WENDY KAPLAN DO 11/21/24 Levothyroxine Sodium (Levothyroxine Sodium) 88 Mcg Tab, 88 MCG PO QAM@0600 for 30 Days, #30 TAB Prov:WENDY KAPLAN DO 11/21/24 Clopidogrel Bisulfate (CLOPIDOGREL) 75 Mg Tab, 75 MG PO DAILY for 30 Days, #30 TAB Prov:WENDY KAPLAN DO 11/21/24 Carvedilol (COREG) 3.125 Mg Tab, 3.125 MG PO Q12HR for 30 Days, #60 TAB Prov:KAPLANWENDY DO 11/21/24 Atorvastatin Calcium (ATORVASTATIN CALCIUM) 20 Mg Tab, 20 MG PO HS for 30 Days, #30 TAB Prov:KAPLANWENDY DO 11/21/24 Reported Medications Lisinopril (Lisinopril) 20 Mg Tab, 1 TAB PO DAILY for 90 Days, #90 11/15/24 Furosemide (Furosemide) 20 Mg Tab, 1 TAB PO DAILY for 30 Days, #60 11/15/24 Discontinued Reported Medications Carvedilol (Carvedilol) 3.125 Mg Tab, 1 TAB PO BID for 30 Days, #60 11/15/24 Current Medications Current Medications Medications (Trade) Dose Ordered Sig/Alex Route PRN Reason Start Time Stop Time Status Last Admin Furosemide (Lasix Tablet) 20 mg DAILY PO 11/22/24 10:00 11/22/24 10:16 Review of Systems Review of systems are currently negative otherwise addressed in HPI. Vital Signs Vital Signs Date Time Temp Pulse Resp B/P (MAP) Pulse Ox O2 Delivery O2 Flow Rate FiO2 11/22/24 17:00 98.3 94 15 109/68 (82) 97 98.3 11/22/24 08:15 Room Air* 0 21 Physical Exam Vitals and nursing notes reviewed. Gen: In no acute distress. HEENT: Normocephalic atraumatic, mucous membranes moist and pink. Neck: Cervical and supraclavicular nodes normal without enlargement, trachea is midline, thyroid gland is normal without masses. Pulmonary: Clear to auscultation and percussion bilaterally. Cardiac: Tachycardia Abdomen: Soft, nontender, nondistended, bowel sounds present all 4 quadrants, no guarding, no rigidity, no organomegaly. Extremities: No cyanosis, clubbing, no edema Neuro: Cranial nerves II through XII grossly intact, normal affect and speech, no focal motor deficits. Skin: Warm, dry, normal color and texture, no rash. Labs/Diagnostic Data Labs Test 11/22/24 12:30 11/22/24 05:45 11/20/24 13:10 11/15/24 03:19 Range/Units POC Glucose 188 H 70-106 mg/dl Sodium Level 131 L 136-145 mmol/L Potassium Level 4.2 3.5-5.1 mmol/L Chloride Level 97 L 98-107 mmol/L Carbon Dioxide Level 19 L 20-31 mmol/L Anion Gap 15 5-15 Blood Urea Nitrogen 93 *H 9-23 mg/dL Creatinine 2.99 H 0.700-1.30 mg/dL Glomerular Filtration Rate Calc 19 >90 mL/min BUN/Creatinine Ratio 31.1 H 10.0-20.0 Serum Glucose 115 H 74-106 mg/dL Calcium Level 8.8 8.7-10.4 mg/dL Triglycerides Level 106 < 150 mg/dL Cholesterol Level 95 < 200 mg/dL LDL Cholesterol 34 < 100 mg/dL HDL Cholesterol 35 L 40-59 mg/dL White Blood Count 11.8 H 4.4-10.8 10^3/uL Red Blood Count 3.45 L 4.5-5.90 10^6/uL Hemoglobin 10.6 L 13.5-17.5 g/dL Hematocrit 33.5 L 41.0-53.0 % Mean Corpuscular Volume 97.2 80.0-100.0 fL Mean Corpuscular Hemoglobin 30.9 28.0-32.0 pg Mean Corpuscular Hemoglobin Concent 31.8 L 32.0-36.0 g/dL Red Cell Distribution Width 14.6 H 11.8-14.3 % Platelet Count 215 140-450 10^3/uL Mean Platelet Volume 7.6 6.9-10.8 fL Neutrophils (%) (Auto) 87.3 H 37.0-80.0 % Lymphocytes (%) (Auto) 2.3 L 10.0-50.0 % Monocytes (%) (Auto) 10.4 0.0-12.0 % Eosinophils (%) (Auto) 0.0 0.0-7.0 % Basophils (%) (Auto) 0.0 0.0-2.0 % Neutrophils # (Auto) 10.3 H 1.6-8.6 10 ^3/uL Lymphocytes # (Auto) 0.3 L 0.4-5.4 10 ^3/uL Monocytes # (Auto) 1.2 0-1.3 10 ^3/uL Eosinophils # (Auto) 0 0-0.8 10 ^3/uL Basophils # (Auto) 0 0-0.2 10 ^3/uL Nucleated Red Blood Cells 0.0 % Test 11/15/24 02:20 11/14/24 23:20 11/14/24 22:33 11/14/24 21:05 Range/Units Urine Color Light-yellow Yellow Urine Clarity Turbid H Clear Urine pH 6.5 5.0-9.0 Urine Specific Schurz 1.011 1.001-1.035 Urine Protein 2+ H Negative Urine Ketones Negative Negative Urine Blood 1+ H Negative /uL Urine Nitrite 2+ H Negative Urine Bilirubin Negative Negative Urine Urobilinogen Normal Negative mg/dL Urine Leukocyte Esterase 3+ Negative /uL Urine RBC 6 0 - 3 /hpf Urine Microscopic WBC 63 H 0-3 /HPF Urine Squamous Epithelial Cells Few <5 /hpf Urine Bacteria Few H None Seen /hpf Urine Mucus Few None Seen Urine Creatinine 72.30 30.0-125.0 mg/dL Urine Sodium 63 40-220 mmol/L Urine Glucose Trace Normal mg/dL Urine Total Protein 163.6 H 1-14 mg/dL Lactic Acid Level 1.9 0.4-2.0 mmol/L Influenza Type A Antigen Negative Negative Influenza Type B Antigen Negative Negative SARS-CoV-2 Antigen (Rapid) Negative NEGATIVE Troponin I High Sensitivity 49 </=54 ng/L Test 11/14/24 17:48 Range/Units Total Bilirubin 0.3 0.2-1.0 mg/dL Aspartate Amino Transferase (AST) 14 13-40 U/L Alanine Aminotransferase (ALT) 9 7-40 U/L Alkaline Phosphatase 104 46-116 U/L B-Type Natriuretic Peptide 414.14 0-100 pg/mL Total Protein 8.1 5.7-8.2 g/dL Albumin 4.7 3.2-4.8 g/dL Assessment Acute renal failure with hyperkalemia Acute on chronic respiratory distress Congestive Heart Failure Elevated troponin Diabetes mellitus Urinary tract infection History of CVA with left-sided deficits Plan/Recommendation Continue current supportive medical care. Cardiology and Nephrology consulted. Neurology consult. CT Head without contrast. IV antibiotics. Diuretics with Lasix. ASA and Statin therapy. Continue home medications. Haldol 2 mg IM prn for agitation. Additional plan as per the hospital course. Plan discussed with: Patient, Other (RN) WENDY KAPLAN DO Nov 22, 2024 19:12
--- NOTE | 2024-11-22 19:12 | DVHPN2 ---
Progress Note - Dictate Date Seen: Nov 17, 2024 Medical Necessity Reason Pt with a Central, PICC or Fol: Yes The following are medically ne: Chapman Catheter Subjective Patient was seen and evaluated in follow up. Chart/events reviewed. Sitter at bedside. Patient became confused and combative. Refusing all care/interventions. CT Head reported generalized brain atrophy; small vessel ischemic/degenerative changes; no acute intracranial hemorrhage, midline shift or mass effect. Renal US shows atrophic left kidney, nonobstructing stone in the mid left kidney measures 1.3 cm. Hyperkalemia resolved. vital signs Vital Sign Date Time Temp Pulse Resp B/P (MAP) Pulse Ox O2 Delivery O2 Flow Rate FiO2 11/22/24 17:00 98.3 94 15 109/68 (82) 97 98.3 11/22/24 08:15 Room Air* 0 21 Total Intake and Output 11/21/24 11/21/24 11/22/24 15:00 23:00 07:00 Intake Total 150 ml 400 ml Output Total 400 ml 700 ml Balance -250 ml -300 ml medications Current Medications Medications Dose Ordered Sig/Alex Route Start Time Stop Time Status Last Admin Dose Admin Nitroglycerin 0.4 mg Q5MINP PRN SL 11/14/24 20:15 Morphine Sulfate 2 mg Q30M PRN IV 11/14/24 20:15 Carvedilol 3.125 mg Q12HR PO 11/15/24 10:00 11/22/24 10:17 Atorvastatin Calcium 20 mg HS PO 11/15/24 22:00 11/21/24 22:59 Clopidogrel Bisulfate 75 mg DAILY PO 11/15/24 10:00 11/22/24 10:15 Levothyroxine Sodium 88 mcg QAM@0600 PO 11/15/24 06:00 11/19/24 05:45 Tamsulosin HCl 0.4 mg QPM PO 11/15/24 18:00 11/21/24 18:00 Diagnostic Test (Pha) 1 strip ACHS 11/15/24 07:00 11/22/24 11:30 Insulin Human Regular ACHS SC 11/15/24 07:00 11/22/24 13:46 Dextrose 50 ml UD PRN IV 11/14/24 23:15 Ondansetron HCl 4 mg Q4HP PRN IV 11/14/24 23:15 Acetaminophen 650 mg Q6HP PRN PO 11/14/24 23:15 11/19/24 16:29 Albuterol 2.5 mg Q6HPRN PRN NEB 11/14/24 23:15 Cancel Quetiapine Fumarate 25 mg BID PRN PO 11/16/24 16:00 11/17/24 17:42 Haloperidol Lactate 2 mg Q4HR PRN IM 11/17/24 08:45 11/21/24 23:08 Furosemide 20 mg DAILY PO 11/22/24 10:00 11/22/24 10:16 objective Vitals and nursing notes reviewed. Gen: In no acute distress. HEENT: Normocephalic atraumatic, mucous membranes moist and pink. Neck: Cervical and supraclavicular nodes normal without enlargement, trachea is midline, thyroid gland is normal without masses. Pulmonary: Clear to auscultation and percussion bilaterally. Cardiac: Tachycardia Abdomen: Soft, nontender, nondistended, bowel sounds present all 4 quadrants, no guarding, no rigidity, no organomegaly. Extremities: No cyanosis, clubbing, no edema Neuro: Cranial nerves II through XII grossly intact, normal affect and speech, no focal motor deficits. Skin: Warm, dry, normal color and texture, no rash. laboratory and microbiology Laboratory Tests 11/22/24 05:45 11/15/24 03:19 Test 11/22/24 05:45 Range/Units Serum Glucose 115 H 74-106 mg/dL Problem List Acute renal failure with hyperkalemia Acute on chronic respiratory distress Congestive Heart Failure Elevated troponin Diabetes mellitus Urinary tract infection History of CVA with left-sided deficits Assessment/Plan Continue current supportive medical care. Sitter at bedside. Cardiology, Neurology and Nephrology consulted. IV antibiotics with Azithromycin. Diuretics with Lasix 20 mg IV BID. Plavix 75 mg PO daily. Continue home medications. Haldol 2 mg IM prn for agitation. Pain management prn. Additional plan as per the hospital course. Dietary Evaluation Review Comments: 1. Continue current diet regime 2. Consider Glucerna BID (440kcal, 20g pro) if pt is agreeable Expected Outcomes/Goals: 1. Pt will meet >75% of estimated needs within 3-5 days Plan discussed with: Patient, Other (RN) WENDY KAPLAN DO Nov 22, 2024 19:12
--- NOTE | 2024-11-22 19:13 | DVHPN2 ---
Progress Note - Dictate Date Seen: Nov 18, 2024 Medical Necessity Reason Pt with a Central, PICC or Fol: Yes The following are medically ne: Chapman Catheter Subjective Patient was seen and evaluated in follow up. No acute events overnight. Sitter at bedside. Patient is lethargic, confused, disoriented to time and place. Does not follow commands. vital signs Vital Sign Date Time Temp Pulse Resp B/P (MAP) Pulse Ox O2 Delivery O2 Flow Rate FiO2 11/22/24 17:00 98.3 94 15 109/68 (82) 97 98.3 11/22/24 08:15 Room Air* 0 21 Total Intake and Output 11/21/24 11/21/24 11/22/24 15:00 23:00 07:00 Intake Total 150 ml 400 ml Output Total 400 ml 700 ml Balance -250 ml -300 ml medications Current Medications Medications Dose Ordered Sig/Alex Route Start Time Stop Time Status Last Admin Dose Admin Nitroglycerin 0.4 mg Q5MINP PRN SL 11/14/24 20:15 Morphine Sulfate 2 mg Q30M PRN IV 11/14/24 20:15 Carvedilol 3.125 mg Q12HR PO 11/15/24 10:00 11/22/24 10:17 Atorvastatin Calcium 20 mg HS PO 11/15/24 22:00 11/21/24 22:59 Clopidogrel Bisulfate 75 mg DAILY PO 11/15/24 10:00 11/22/24 10:15 Levothyroxine Sodium 88 mcg QAM@0600 PO 11/15/24 06:00 11/19/24 05:45 Tamsulosin HCl 0.4 mg QPM PO 11/15/24 18:00 11/21/24 18:00 Diagnostic Test (Pha) 1 strip ACHS 11/15/24 07:00 11/22/24 11:30 Insulin Human Regular ACHS SC 11/15/24 07:00 11/22/24 13:46 Dextrose 50 ml UD PRN IV 11/14/24 23:15 Ondansetron HCl 4 mg Q4HP PRN IV 11/14/24 23:15 Acetaminophen 650 mg Q6HP PRN PO 11/14/24 23:15 11/19/24 16:29 Albuterol 2.5 mg Q6HPRN PRN NEB 11/14/24 23:15 Cancel Quetiapine Fumarate 25 mg BID PRN PO 11/16/24 16:00 11/17/24 17:42 Haloperidol Lactate 2 mg Q4HR PRN IM 11/17/24 08:45 11/21/24 23:08 Furosemide 20 mg DAILY PO 11/22/24 10:00 11/22/24 10:16 objective Vitals and nursing notes reviewed. Gen: In no acute distress. HEENT: Normocephalic atraumatic, mucous membranes moist and pink. Neck: Cervical and supraclavicular nodes normal without enlargement, trachea is midline, thyroid gland is normal without masses. Pulmonary: Clear to auscultation and percussion bilaterally. Cardiac: RRR. No murmurs Abdomen: Soft, nontender, nondistended, bowel sounds present all 4 quadrants, no guarding, no rigidity, no organomegaly. Extremities: No cyanosis, clubbing, no edema Neuro: Disoriented. Skin: Warm, dry, normal color and texture, no rash. laboratory and microbiology Laboratory Tests 11/22/24 05:45 11/15/24 03:19 Test 11/22/24 05:45 Range/Units Serum Glucose 115 H 74-106 mg/dL Problem List Acute renal failure with hyperkalemia Acute on chronic respiratory distress Congestive Heart Failure Elevated troponin Diabetes mellitus Urinary tract infection History of CVA with left-sided deficits Assessment/Plan Continue current supportive medical care. Sitter at bedside. Cardiology, Neurology and Nephrology consulted. IV antibiotics with Azithromycin. Diuretics with Lasix 20 mg IV BID. Plavix 75 mg PO daily. Continue home medications. Haldol 2 mg IM prn for agitation. Pain management prn. Additional plan as per the hospital course. Dietary Evaluation Review Comments: 1. Continue current diet regime 2. Consider Glucerna BID (440kcal, 20g pro) if pt is agreeable Expected Outcomes/Goals: 1. Pt will meet >75% of estimated needs within 3-5 days Plan discussed with: Patient, Other (RN) WENDY KAPLAN DO Nov 22, 2024 19:13
--- NOTE | 2024-11-22 19:13 | DVHPN2 ---
Progress Note - Dictate Date Seen: Nov 19, 2024 Medical Necessity Reason Pt with a Central, PICC or Fol: Yes The following are medically ne: Chapman Catheter Subjective Patient was seen and evaluated in follow up. No acute significant events. Patient continues to refuse cares and medications per RN. No pain or distress. vital signs Vital Sign Date Time Temp Pulse Resp B/P (MAP) Pulse Ox O2 Delivery O2 Flow Rate FiO2 11/22/24 17:00 98.3 94 15 109/68 (82) 97 98.3 11/22/24 08:15 Room Air* 0 21 Total Intake and Output 11/21/24 11/21/24 11/22/24 15:00 23:00 07:00 Intake Total 150 ml 400 ml Output Total 400 ml 700 ml Balance -250 ml -300 ml medications Current Medications Medications Dose Ordered Sig/Alex Route Start Time Stop Time Status Last Admin Dose Admin Nitroglycerin 0.4 mg Q5MINP PRN SL 11/14/24 20:15 Morphine Sulfate 2 mg Q30M PRN IV 11/14/24 20:15 Carvedilol 3.125 mg Q12HR PO 11/15/24 10:00 11/22/24 10:17 Atorvastatin Calcium 20 mg HS PO 11/15/24 22:00 11/21/24 22:59 Clopidogrel Bisulfate 75 mg DAILY PO 11/15/24 10:00 11/22/24 10:15 Levothyroxine Sodium 88 mcg QAM@0600 PO 11/15/24 06:00 11/19/24 05:45 Tamsulosin HCl 0.4 mg QPM PO 11/15/24 18:00 11/21/24 18:00 Diagnostic Test (Pha) 1 strip ACHS 11/15/24 07:00 11/22/24 11:30 Insulin Human Regular ACHS SC 11/15/24 07:00 11/22/24 13:46 Dextrose 50 ml UD PRN IV 11/14/24 23:15 Ondansetron HCl 4 mg Q4HP PRN IV 11/14/24 23:15 Acetaminophen 650 mg Q6HP PRN PO 11/14/24 23:15 11/19/24 16:29 Albuterol 2.5 mg Q6HPRN PRN NEB 11/14/24 23:15 Cancel Quetiapine Fumarate 25 mg BID PRN PO 11/16/24 16:00 11/17/24 17:42 Haloperidol Lactate 2 mg Q4HR PRN IM 11/17/24 08:45 11/21/24 23:08 Furosemide 20 mg DAILY PO 11/22/24 10:00 11/22/24 10:16 objective Vitals and nursing notes reviewed. Gen: In no acute distress. HEENT: Normocephalic atraumatic, mucous membranes moist and pink. Neck: Cervical and supraclavicular nodes normal without enlargement, trachea is midline, thyroid gland is normal without masses. Pulmonary: Clear to auscultation and percussion bilaterally. Cardiac: RRR. No murmurs Abdomen: Soft, nontender, nondistended, bowel sounds present all 4 quadrants, no guarding, no rigidity, no organomegaly. Extremities: No cyanosis, clubbing, no edema Neuro: Disoriented. Skin: Warm, dry, normal color and texture, no rash. laboratory and microbiology Laboratory Tests 11/22/24 05:45 11/15/24 03:19 Test 11/22/24 05:45 Range/Units Serum Glucose 115 H 74-106 mg/dL Problem List Acute renal failure with hyperkalemia Acute on chronic respiratory distress Congestive Heart Failure, Ejection fraction 10% Elevated troponin Diabetes mellitus Urinary tract infection History of CVA with left-sided deficits Assessment/Plan Continue current supportive medical care. Sitter at bedside. Cardiology, Neurology and Nephrology consulted. IV antibiotics with Azithromycin. Diuretics with Lasix. Continue home medications. Haldol 2 mg IM prn for agitation. Pain management prn. Additional plan as per the hospital course. Dietary Evaluation Review Comments: 1. Continue current diet regime 2. Consider Glucerna BID (440kcal, 20g pro) if pt is agreeable Expected Outcomes/Goals: 1. Pt will meet >75% of estimated needs within 3-5 days Plan discussed with: Patient, Other (RN) WENDY KAPLAN DO Nov 22, 2024 19:13
--- NOTE | 2024-11-22 19:14 | DVHPN2 ---
Progress Note - Dictate Date Seen: Nov 20, 2024 Medical Necessity Reason Pt with a Central, PICC or Fol: Yes The following are medically ne: Chapman Catheter Subjective Patient was seen and evaluated in follow up. No acute events overnight. Sitter remains at bedside. Patient is alert and oriented to self. Patient complains of L shoulder and wrist pain. vital signs Vital Sign Date Time Temp Pulse Resp B/P (MAP) Pulse Ox O2 Delivery O2 Flow Rate FiO2 11/22/24 17:00 98.3 94 15 109/68 (82) 97 98.3 11/22/24 08:15 Room Air* 0 21 Total Intake and Output 11/21/24 11/21/24 11/22/24 15:00 23:00 07:00 Intake Total 150 ml 400 ml Output Total 400 ml 700 ml Balance -250 ml -300 ml medications Current Medications Medications Dose Ordered Sig/Alex Route Start Time Stop Time Status Last Admin Dose Admin Nitroglycerin 0.4 mg Q5MINP PRN SL 11/14/24 20:15 Morphine Sulfate 2 mg Q30M PRN IV 11/14/24 20:15 Carvedilol 3.125 mg Q12HR PO 11/15/24 10:00 11/22/24 10:17 3.125 MG Atorvastatin Calcium 20 mg HS PO 11/15/24 22:00 11/21/24 22:59 20 MG Clopidogrel Bisulfate 75 mg DAILY PO 11/15/24 10:00 11/22/24 10:15 75 MG Levothyroxine Sodium 88 mcg QAM@0600 PO 11/15/24 06:00 11/19/24 05:45 88 MCG Tamsulosin HCl 0.4 mg QPM PO 11/15/24 18:00 11/21/24 18:00 0.4 MG Diagnostic Test (Pha) 1 strip ACHS 11/15/24 07:00 11/22/24 11:30 1 STRIP Insulin Human Regular ACHS SC 11/15/24 07:00 11/22/24 13:46 3 UNITS Dextrose 50 ml UD PRN IV 11/14/24 23:15 Ondansetron HCl 4 mg Q4HP PRN IV 11/14/24 23:15 Acetaminophen 650 mg Q6HP PRN PO 11/14/24 23:15 11/19/24 16:29 650 MG Albuterol 2.5 mg Q6HPRN PRN NEB 11/14/24 23:15 Cancel Quetiapine Fumarate 25 mg BID PRN PO 11/16/24 16:00 11/17/24 17:42 25 MG Haloperidol Lactate 2 mg Q4HR PRN IM 11/17/24 08:45 11/21/24 23:08 2 MG Furosemide 20 mg DAILY PO 11/22/24 10:00 11/22/24 10:16 20 MG objective Vitals and nursing notes reviewed. Gen: In no acute distress. HEENT: Normocephalic atraumatic, mucous membranes moist and pink. Neck: Cervical and supraclavicular nodes normal without enlargement, trachea is midline, thyroid gland is normal without masses. Pulmonary: Clear to auscultation and percussion bilaterally. Cardiac: RRR. No murmurs Abdomen: Soft, nontender, nondistended, bowel sounds present all 4 quadrants, no guarding, no rigidity, no organomegaly. Extremities: No cyanosis, clubbing, no edema Neuro: Disoriented. Skin: Warm, dry, normal color and texture, no rash. laboratory and microbiology Laboratory Tests 11/22/24 05:45 11/15/24 03:19 Test 11/22/24 05:45 Range/Units Serum Glucose 115 H 74-106 mg/dL Problem List Acute renal failure with hyperkalemia Acute on chronic respiratory distress Congestive Heart Failure, Ejection fraction 10% Elevated troponin Diabetes mellitus Urinary tract infection History of CVA with left-sided deficits Assessment/Plan Continue current supportive medical care. Sitter at bedside. Cardiology, Neurology and Nephrology consulted. L Wrist and Shoulder x-rays. IV antibiotics with Azithromycin. Diuretics with Lasix. Continue home medications. Haldol 2 mg IM prn for agitation. Pain management prn. Additional plan as per the hospital course. Dietary Evaluation Review Comments: 1. Continue current diet regime 2. Consider Glucerna BID (440kcal, 20g pro) if pt is agreeable Expected Outcomes/Goals: 1. Pt will meet >75% of estimated needs within 3-5 days Plan discussed with: Patient, Other (RN) WENDY KAPLAN DO Nov 22, 2024 19:14
--- NOTE | 2024-11-22 19:14 | DVHPN2 ---
Progress Note - Dictate Date Seen: Nov 21, 2024 Medical Necessity Reason Pt with a Central, PICC or Fol: Yes The following are medically ne: Chapman Catheter Subjective Patient was seen and evaluated in follow up. No significant events. Sitter at bedside. Patient remains A&O x1. He refused to undergo EEG earlier today per RN. Follow up L Wrist and Shoulder x-ray reported no acute fracture or dislocation. Hospice care to be discussed with daughter. She was not at bedside at time of assessment. vital signs Vital Sign Date Time Temp Pulse Resp B/P (MAP) Pulse Ox O2 Delivery O2 Flow Rate FiO2 11/22/24 17:00 98.3 94 15 109/68 (82) 97 98.3 11/22/24 08:15 Room Air* 0 21 Total Intake and Output 11/21/24 11/21/24 11/22/24 15:00 23:00 07:00 Intake Total 150 ml 400 ml Output Total 400 ml 700 ml Balance -250 ml -300 ml medications Current Medications Medications Dose Ordered Sig/Alex Route Start Time Stop Time Status Last Admin Dose Admin Nitroglycerin 0.4 mg Q5MINP PRN SL 11/14/24 20:15 Morphine Sulfate 2 mg Q30M PRN IV 11/14/24 20:15 Carvedilol 3.125 mg Q12HR PO 11/15/24 10:00 11/22/24 10:17 3.125 MG Atorvastatin Calcium 20 mg HS PO 11/15/24 22:00 11/21/24 22:59 20 MG Clopidogrel Bisulfate 75 mg DAILY PO 11/15/24 10:00 11/22/24 10:15 75 MG Levothyroxine Sodium 88 mcg QAM@0600 PO 11/15/24 06:00 11/19/24 05:45 88 MCG Tamsulosin HCl 0.4 mg QPM PO 11/15/24 18:00 11/21/24 18:00 0.4 MG Diagnostic Test (Pha) 1 strip ACHS 11/15/24 07:00 11/22/24 11:30 1 STRIP Insulin Human Regular ACHS SC 11/15/24 07:00 11/22/24 13:46 3 UNITS Dextrose 50 ml UD PRN IV 11/14/24 23:15 Ondansetron HCl 4 mg Q4HP PRN IV 11/14/24 23:15 Acetaminophen 650 mg Q6HP PRN PO 11/14/24 23:15 11/19/24 16:29 650 MG Albuterol 2.5 mg Q6HPRN PRN NEB 11/14/24 23:15 Cancel Quetiapine Fumarate 25 mg BID PRN PO 11/16/24 16:00 11/17/24 17:42 25 MG Haloperidol Lactate 2 mg Q4HR PRN IM 11/17/24 08:45 11/21/24 23:08 2 MG Furosemide 20 mg DAILY PO 11/22/24 10:00 11/22/24 10:16 20 MG objective Vitals and nursing notes reviewed. Gen: In no acute distress. HEENT: Normocephalic atraumatic, mucous membranes moist and pink. Neck: Cervical and supraclavicular nodes normal without enlargement, trachea is midline, thyroid gland is normal without masses. Pulmonary: Clear to auscultation and percussion bilaterally. Cardiac: RRR. No murmurs Abdomen: Soft, nontender, nondistended, bowel sounds present all 4 quadrants, no guarding, no rigidity, no organomegaly. Extremities: No cyanosis, clubbing, no edema Neuro: Disoriented. Skin: Warm, dry, normal color and texture, no rash. laboratory and microbiology Laboratory Tests 11/22/24 05:45 11/15/24 03:19 Test 11/22/24 05:45 Range/Units Serum Glucose 115 H 74-106 mg/dL Problem List Acute renal failure with hyperkalemia Acute on chronic respiratory distress Congestive Heart Failure, Ejection fraction 10% Elevated troponin Diabetes mellitus Urinary tract infection History of CVA with left-sided deficits Assessment/Plan Continue current supportive medical care. DC planning. Sitter at bedside. Cardiology, Neurology and Nephrology consulted. Continue home medications. Haldol 2 mg IM prn for agitation. Pain management prn. Additional plan as per the hospital course. Dietary Evaluation Review Comments: 1. Continue current diet regime 2. Consider Glucerna BID (440kcal, 20g pro) if pt is agreeable Expected Outcomes/Goals: 1. Pt will meet >75% of estimated needs within 3-5 days Plan discussed with: Patient, Other (RN) WENDY KAPLAN DO Nov 22, 2024 19:14
--- NOTE | 2024-11-22 19:15 | DVHDS2 ---
Discharge Summary Date of Admission Nov 14, 2024 at 20:11 Date of Discharge: Nov 22, 2024 Admitting Diagnosis Acute renal failure with hyperkalemia Labs/Diagnostic Data: Laboratory Results Test 11/22/24 12:30 11/22/24 05:45 11/20/24 13:10 11/15/24 03:19 POC Glucose 188 mg/dl (70-106) Sodium Level 131 mmol/L (136-145) Potassium Level 4.2 mmol/L (3.5-5.1) Chloride Level 97 mmol/L (98-107) Carbon Dioxide Level 19 mmol/L (20-31) Anion Gap 15 (5-15) Blood Urea Nitrogen 93 mg/dL (9-23) Creatinine 2.99 mg/dL (0.700-1.30) Glomerular Filtration Rate Calc 19 mL/min (>90) BUN/Creatinine Ratio 31.1 (10.0-20.0) Serum Glucose 115 mg/dL (74-106) Calcium Level 8.8 mg/dL (8.7-10.4) Triglycerides Level 106 mg/dL (< 150) Cholesterol Level 95 mg/dL (< 200) LDL Cholesterol 34 mg/dL (< 100) HDL Cholesterol 35 mg/dL (40-59) White Blood Count 11.8 10^3/uL (4.4-10.8) Red Blood Count 3.45 10^6/uL (4.5-5.90) Hemoglobin 10.6 g/dL (13.5-17.5) Hematocrit 33.5 % (41.0-53.0) Mean Corpuscular Volume 97.2 fL (80.0-100.0) Mean Corpuscular Hemoglobin 30.9 pg (28.0-32.0) Mean Corpuscular Hemoglobin Concent 31.8 g/dL (32.0-36.0) Red Cell Distribution Width 14.6 % (11.8-14.3) Platelet Count 215 10^3/uL (140-450) Mean Platelet Volume 7.6 fL (6.9-10.8) Neutrophils (%) (Auto) 87.3 % (37.0-80.0) Lymphocytes (%) (Auto) 2.3 % (10.0-50.0) Monocytes (%) (Auto) 10.4 % (0.0-12.0) Eosinophils (%) (Auto) 0.0 % (0.0-7.0) Basophils (%) (Auto) 0.0 % (0.0-2.0) Neutrophils # (Auto) 10.3 10 ^3/uL (1.6-8.6) Lymphocytes # (Auto) 0.3 10 ^3/uL (0.4-5.4) Monocytes # (Auto) 1.2 10 ^3/uL (0-1.3) Eosinophils # (Auto) 0 10 ^3/uL (0-0.8) Basophils # (Auto) 0 10 ^3/uL (0-0.2) Nucleated Red Blood Cells 0.0 % Test 11/15/24 02:20 11/14/24 23:20 11/14/24 22:33 11/14/24 21:05 Urine Color Light-yellow (Yellow) Urine Clarity Turbid (Clear) Urine pH 6.5 (5.0-9.0) Urine Specific [place] 1.011 (1.001-1.035) Urine Protein 2+ (Negative) Urine Ketones Negative (Negative) Urine Blood 1+ /uL (Negative) Urine Nitrite 2+ (Negative) Urine Bilirubin Negative (Negative) Urine Urobilinogen Normal mg/dL (Negative) Urine Leukocyte Esterase 3+ /uL (Negative) Urine RBC 6 /hpf (0 - 3) Urine Microscopic WBC 63 /HPF (0-3) Urine Squamous Epithelial Cells Few /hpf (<5) Urine Bacteria Few /hpf (None Seen) Urine Mucus Few (None Seen) Urine Creatinine 72.30 mg/dL (30.0-125.0) Urine Sodium 63 mmol/L (40-220) Urine Glucose Trace mg/dL (Normal) Urine Total Protein 163.6 mg/dL (1-14) Lactic Acid Level 1.9 mmol/L (0.4-2.0) Influenza Type A Antigen Negative (Negative) Influenza Type B Antigen Negative (Negative) SARS-CoV-2 Antigen (Rapid) Negative (NEGATIVE) Troponin I High Sensitivity 49 ng/L (</=54) Test 11/14/24 17:48 Total Bilirubin 0.3 mg/dL (0.2-1.0) Aspartate Amino Transferase (AST) 14 U/L (13-40) Alanine Aminotransferase (ALT) 9 U/L (7-40) Alkaline Phosphatase 104 U/L (46-116) B-Type Natriuretic Peptide 414.14 pg/mL (0-100) Total Protein 8.1 g/dL (5.7-8.2) Albumin 4.7 g/dL (3.2-4.8) Other Laboratory Tests 11/22/24 05:45 11/15/24 03:19 Brief Hx & Hospital Course: Anthony Marlow is a 89-year-old male with a Past Medical History pertinent for Hypertension, Diabetes, CVA, High Lipids, IL and BPH who presented to the hospital with complaints of flu-like symptoms x 2 days. While in ED, labs were remarkable for WBC 12.2, K 7.1. Troponin 60 with repeat at 57. BNP 414. Chest x- ray reported mild pulmonary vascular congestion. Viral respiratory swabs were negative. Patient was also found to have UTI, metabolic acidosis, kidney failure and ALOC. Cardiology, Neurology and Nephrology consulted. Patient remained awake and oriented only to self. CT Head reported generalized brain atrophy; small vessel ischemic/degenerative changes; no acute intracranial hemorrhage, midline shift or mass effect. Sitter was placed at bedside. Patient continued supportive treatment to include IV antibiotics, bicarb drip, diuretics with Lasix, ASA and Plavix, Lipitor. Haldol IM given prn for agitation and combativeness. Patient continued to intermittently refuse medications and care along with exams to include EEG. No SR. V[employer]ATE required. Renal US showed atrophic left kidney, nonobstructing stone in the mid left kidney measures 1.3 cm. Echocardiogram reported moderately dilated LV; moderate degree global LV Hypokinesis; LV EF in the range of only 25%; Bio-prosthetic MV appear normal; heavily calcified aortic leaflets; aortic valve area is 1.19 cm square; moderate degree aortic stenosis; moderately dilated LA and RV and RA; no effusion. Follow up L Wrist and Shoulder x-rays for complaint of pain reported no acute fracture or dislocation.Hospice care and evaluation was discussed with patient's daughter. Family was provided with various options for Hospice care, given information on several that would be covered by healthcare plan. Case Management at hospital advised of same. Discharge was originally ordered yesterday, unsure as to why this was not completed. Patient's daughter has opted to proceed with [facility] with patient to discharge home today. Patient is stable at the time of discharge. Physical exam: Vitals and nursing notes reviewed. Gen: In no acute distress. HEENT: Normocephalic atraumatic, mucous membranes moist and pink. Neck: Cervical and supraclavicular nodes normal without enlargement, trachea is midline, thyroid gland is normal without masses. Pulmonary: Clear to auscultation and percussion bilaterally. Cardiac: RRR. No murmurs Abdomen: Soft, nontender, nondistended, bowel sounds present all 4 quadrants, no guarding, no rigidity, no organomegaly. Extremities: No cyanosis, clubbing, no edema Neuro: Disoriented. Skin: Warm, dry, normal color and texture, no rash. Consults/Reason for consult Nephrology, Dr. Cortez- ROSHNI Cardiology, Dr. Magali Guerrier - CHF Neurology, Dr. 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 Patient was counseled about treatment plan, medications, possible side effects, patientverbalized understanding. All questions were answered to the best of my ability. This discharge took greater then 30 minutes in planning, reviewing documentation, counseling the patient, and discussing with other team members." ASSESSMENT ASSESSMENT Hospital Course DUPLICATE NOTE- REPLACED. Assessment Dementia w/ agitation and hallucination Chronic Kidney Disease Stage 4 Congestive Heart Failure WENDY GUERRIER DO Nov 22, 2024 19:15
== END 2024-11-22 19:20 | disposition hospice, home (50) | DRG 682 ==
LOC: ER 17:36 → EDBD 17:36 → OVERFLOW 20:11 → TELE-CENTR 11-15 22:28
PROVIDERS: ADMIT Internal Medicine Nephrology; ATTEND Internal Medicine Nephrology
DX: N17.0 Acute kidney failure with tubular necrosis (principal); G93.41 Metabolic encephalopathy; I50.23 Acute on chronic systolic (congestive) heart failure; J96.01 Acute respiratory failure with hypoxia; I13.0 Hypertensive heart and chronic kidney disease with heart failure and stage 1 through stage 4 chronic kidney disease, or unspecified chronic kidney disease; N39.0 Urinary tract infection, site not specified; E87.20 Acidosis, unspecified; F03.92 Unspecified dementia, unspecified severity, with psychotic disturbance; F03.911 Unspecified dementia, unspecified severity, with agitation; N18.4 Chronic kidney disease, stage 4 (severe); Z51.5 Encounter for palliative care; Z20.822 Contact with and (suspected) exposure to COVID-19; E87.5 Hyperkalemia; E11.22 Type 2 diabetes mellitus with diabetic chronic kidney disease; E78.5 Hyperlipidemia, unspecified; N40.0 Benign prostatic hyperplasia without lower urinary tract symptoms; E66.01 Morbid (severe) obesity due to excess calories; I25.10 Atherosclerotic heart disease of native coronary artery without angina pectoris; E03.9 Hypothyroidism, unspecified; G31.9 Degenerative disease of nervous system, unspecified; Z79.82 Long term (current) use of aspirin; Z79.02 Long term (current) use of antithrombotics/antiplatelets; Z79.899 Other long term (current) drug therapy; Z82.49 Family history of ischemic heart disease and other diseases of the circulatory system; Z95.1 Presence of aortocoronary bypass graft; Z86.73 Personal history of transient ischemic attack (TIA), and cerebral infarction without residual deficits; Z95.2 Presence of prosthetic heart valve; Z95.820 Peripheral vascular angioplasty status with implants and grafts; Z68.21 Body mass index [BMI] 21.0-21.9, adult
CPT/HCPCS: 36415; 70450; 71045; 73030; 73100; 76775; 80048; 80053; 80061; 81001; 82570; 82962; 83605; 83880; 84156; 84300; 84484; 85025; 87426; 87804; 93005; 93306; 94640; 99291; G0378; J1815